=== PATIENT | female | born 1950 | race Caucasian/White ===

== ENCOUNTER → 2017-10-07 11:02 | Outpatient (CLI) | payer MEDICARE, OTHER, SELFPAY ==
--- NOTE | 2017-10-07 | DI.MRI.S_ITS ---
PROCEDURE: MR LUMBAR SPINE WO CON INDICATIONS: SPINAL STENOSIS OF LUMBAR REGION TECHNIQUE: Noncontrast sagittal T1 spin echo and T2 fast echo, sagittal STIR, axial T1 and T2 fast spin echo through the lumbar spine. In cases with scoliosis, additional coronal T2 fast spin echo may be performed. COMPARISON: [facility], MR, L-SPINE WITHOUT CONTRAST, 05/11/2015, 10:01. [facility], MR, L-SPINE WITHOUT CONTRAST, 09/24/2011, 13:02. [facility], MR, L-SPINE W&WO CONTRAST, 02/23/2016, 10:18. FINDINGS: Image quality: Excellent. Alignment and Curvature: There is a one L4-L5 and L5-S1 anterolisthesis secondary to facet hypertrophy. Bone Marrow: Mild reactive endplate changes noted adjacent the L5-S1 disc. Benign, intraosseous hemangioma noted in the L3 vertebral body. Postsurgical changes compatible prior right L5-S1 laminotomy noted. No acute vertebral body compression fractures. Spinal Cord: Conus medullaris terminates at the L1 level. Visualized cord demonstrates normal signal and size. Paraspinous Soft Tissues: No paravertebral masses. L1-L2: Slight loss of disc signal. Minimal, diffuse disc bulge. No central stenosis. No neural foraminal narrowing. L2-L3: Slight loss of disc signal. Mild, diffuse disc bulge. Mild bilateral facet hypertrophy. No central stenosis. No neural foraminal narrowing. L3-L4: Loss of disc signal. Mild to moderate diffuse disc bulge. Mild to moderate facet hypertrophy. Mild ligamentum flavum hypertrophy. Mild narrowing of the central canal secondary to disc disease and posterior element hypertrophy. Mild bilateral neural foraminal narrowing secondary to disc and facet disease. L4-L5: Loss of disc signal and height. Mild, diffuse disc bulge. Severe facet hypertrophy. Moderate ligamentum flavum hypertrophy. Severe central canal narrowing secondary to disc disease and posterior element hypertrophy. Severe bilateral neural foraminal narrowing secondary to disc and facet disease with flattened deformity exiting L4 nerve roots bilaterally. Focal high intensity zone noted in the posterior annulus compatible with a fissure. L5-S1: Loss of disc signal and height. Mild, diffuse disc bulge. Small right central disc protrusion superimposed on diffuse disc bulge is not significantly changed compared to 02/23/2016. Severe bilateral facet hypertrophy. Mild to moderate narrowing of the central canal secondary to disc disease and facet hypertrophy. Moderate to severe bilateral neural foraminal narrowing secondary to disc and facet disease with slight flattened deformity exiting L5 nerve roots bilaterally. IMPRESSION: 1. Postsurgical changes. 2. Grade I L4-L5 and L5-S1 degenerative spondylolisthesis. 3. Multilevel degenerative disc disease. 4. Multilevel facet arthropathy. 5. Severe L4-L5 central canal narrowing. Mild to moderate L5-S1 central canal narrowing. Mild L3-L4 central. 6. Severe bilateral L4-L5 neural foraminal narrowing. Moderate to severe bilateral L5-S1 neural foraminal narrowing. Mild bilateral L3-L4 neural foraminal narrowing. Dictated by: Nikki Rivas MD, PhD on 10/07/2017 at 16:41 Approved by: Nikki Rivas MD, PhD on 10/07/2017 at 16:50
== END ==
PROVIDERS: Family Provider Physical Medicine & Rehabilitation; PCP Student in an Organized Health Care Education/Training Program; Visit Provider Student in an Organized Health Care Education/Training Program
DX: M48.061 Spinal stenosis, lumbar region without neurogenic claudication (principal); M43.16 Spondylolisthesis, lumbar region; M51.36 Other intervertebral disc degeneration, lumbar region; M47.896 Other spondylosis, lumbar region
CPT/HCPCS: 72148

== ENCOUNTER 2020-05-13 17:50 | Emergency (ER) | payer MEDICARE, OTHER, SELFPAY ==
[2020-05-13 17:55] VITALS: BP 185/88; PULSE 72; RESP 15; TEMP 36.8; O2SAT 99; BMI 27.4
--- NOTE | 2020-05-13 18:05 | DI.US.S_ITS ---
PROCEDURE: US PERIPH VENOUS LOW EXTREM LT INDICATIONS: RULE OUT DEEP VEIN THROMBOSIS TECHNIQUE: Real-time imaging, as well as color and pulse Doppler interrogation, were performed of the lower extremity deep veins from the inguinal ligament to the popliteal fossa. COMPARISON: None. FINDINGS: Partially occlusive thrombus is seen within the popliteal vein which is dilated. IMPRESSION: Popliteal DVT. Dictated by: Angélica Pringle M.D. on 05/13/2020 at 18:45 Approved by: Angélica Pringle M.D. on 05/13/2020 at 18:45
--- NOTE | 2020-05-13 19:10 | ED.EXTPRO ---
HPI - Extremity Problem General Chief complaint: Extremity Problem,Nontraumatic Stated complaint: Pain In Groin, Possible DVT Time Seen by Provider: 05/13/20 18:07 Source: patient Mode of arrival: Ambulatory Limitations: no limitations History of Present Illness HPI Narrative: 70-year-old female daily smoker with history of lupus, hypertension presents with her , at the request of her primary care doctor for evaluation of pain and swelling in her right groin in the absence of any injury. She recently was on a prolonged car ride (>5hours) and there is concern for a DVT. Her pain started on Tuesdayshe has had no fever chills nor numbness, tingling or weakness. She denies any history of blood clot, recent injury or cancer. She was seen and evaluated at an outside facility and was given an injection of Lovenox and sent here for confirmatory diagnosis. Her pain is deep and aching, worsening over the course of the week, improved with rest and worse with motion and palpation MD Complaint: extremity pain and extremity swelling Onset (ago): day(s) Pain Consistency: constant Location: right Quality: aching Radiation: none Relieving factors: rest Exacerbating factors: range of motion, weight bearing and palpation Associated symptoms: denies other symptoms Context: recent travel Related Data Previous Rx's Medication Instructions Recorded apixaban [Eliquis DVT-PE Treat 30D See Rx Instructions .ROUTE 05/13/20 Start] .COMPLEX #74 ea Allergies Allergy/AdvReac Type Severity Reaction Status Date / Time morphine Allergy Verified 05/13/20 17:58 Review of Systems Constitutional Constitutional: Denies chills, Denies fatigue, Denies fever(s), Denies frequent falls, Denies lethargy and Denies weakness Eyes Eyes: Denies change in vision, Denies eye discharge, Denies irritation and Denies loss of vision ENT Ears, Nose, Mouth, and Throat: Denies change in voice, Denies dizziness, Denies neck pain, Denies sore throat and Denies throat swelling Cardiovascular Cardiovascular: Denies chest pain, Denies irregular heart rhythm, Denies lightheadedness, Denies palpitations, Denies dyspnea, Denies dyspnea on exertion and Denies orthopnea Respiratory Respiratory: Denies cough, Denies dyspnea, Denies dyspnea on exertion and Denies wheezing Gastrointestinal Gastrointestinal: Denies abdominal pain, Denies change in bowel habits, Denies diarrhea, Denies nausea and Denies vomiting Musculoskeletal Musculoskeletal: Reports abnormal gait, Denies neck pain and Denies numbness Integumentary/Breasts Skin/Breast: Denies pruritus, Denies erythema, Denies rash and Denies wounds Neurologic Neurologic: Reports abnormal gait, Denies behavioral changes, Denies confusion, Denies dizziness, Denies frequent falls, Denies loss of vision, Denies numbness and Denies weakness Psychiatric Psychiatric: Denies anxiety, Denies behavioral changes, Denies confusion, Denies depression, Denies homicidal ideation and Denies suicidal ideation Endocrine Endocrine: Denies fatigue, Denies flushing and Denies palpitations Hematologic/Lymphatic Hematologic/Lymphatic: Denies easy bruising Allergic/Immunologic Allergic/Immunologic: Denies urticaria, Denies throat swelling and Denies wheezing Patient History Social History Smoking Status: Current every day smoker Smoking Status: Current every day smoker alcohol intake frequency: 0-2 drinks per day Substance Use Type: does not use Exam Narrative Exam Narrative: GENERAL: [70] year old patient appears stated age. Well-nourished, well-developed patient, in mild distress. Ambulates to exam room HEAD: Atraumatic. Normocephalic. EYES: Pupils equal round and reactive. Extraocular motions intact. No scleral icterus. No injection or drainage. ENT: Nose without bleeding, purulent drainage. Throat without erythema, tonsillar hypertrophy or exudate. Airway patent. NECK: Trachea midline. Non tender CARDIOVASCULAR: Regular rate and rhythm without murmurs, gallops, or rubs. RESPIRATORY: Clear to auscultation. Breath sounds equal bilaterally. No wheezes, rales, or rhonchi. GASTROINTESTINAL: Abdomen soft, non-tender, nondistended. EXTREMITIES: Pain in left groin and thigh, no obvious erythema, swelling No edema or joint tenderness. BACK: Nontender without deformity or crepitance. No flank tenderness. NEURO: AOx3. SKIN: No rash or erythema of visible areas Initial Vital Signs Initial Vital Signs: Vital Signs Temperature 98.3 F 05/13/20 17:55 Pulse Rate 72 05/13/20 17:55 Respiratory Rate 15 05/13/20 17:55 Blood Pressure 185/88 H 05/13/20 17:55 Pulse Oximetry 99 05/13/20 17:55 Course Orders Ordered: Discontinued Medications Hydrocodone Bitart/Acetaminophen (Hydrocodone/Acet 5/325 Prepack) 1 bottle MISC SEEINSTR ONE Stop: 05/13/20 19:31 Last Admin: 05/13/20 19:36 Dose: 1 bottle Documented by: AVERY Vital Signs Vital signs: Vital Signs - 8 hr 05/13/20 17:55 Temperature 98.3 F Pulse Rate 72 Respiratory Rate 15 Blood Pressure 185/88 H Pulse Oximetry 99 MDM - Extremity (Nontraumatic) Imaging Data US - DVT: Radiologist's Impression: [address] [id number] ReportSigned Patient: Tyra Contreras MMR#: [id number]: 8Acct:[id number]/Sex: 70 / FDate of Service: 05/13/20Loc: EDAccession Number: [id number] Procedure: US periph venous low extrem lt Ordering Provider: Leann Ceballos D.O. PROCEDURE: US PERIPH VENOUS LOW EXTREM LT INDICATIONS: RULE OUT DEEP VEIN THROMBOSIS TECHNIQUE: Real-time imaging, as well as color and pulse Doppler interrogation, were performed of the lower extremity deep veins from the inguinal ligament to the popliteal fossa. COMPARISON: None. FINDINGS: Partially occlusive thrombus is seen within the popliteal vein which is dilated. IMPRESSION: Popliteal DVT. Dictated by: Angélica Pringle M.D. on 05/13/2020 at 18:45 Approved by: Angélica Pringle M.D. on 05/13/2020 at 18:45 Discharge Plan Departure Patient Disposition: Home Clinical Impression: Deep vein thrombosis of lower extremity Qualifiers: Affected thrombotic vein of extremity: popliteal Chronicity: acute Laterality: left Qualified Code(s): I82.432 - Acute embolism and thrombosis of left popliteal vein Instructions: DI for Deep Vein Thrombosis Activity Restrictions/Additional Instructions: *You have been diagnosed with [left lower extremity DVT (popliteal)] *What to do: *Take medications as directed: Your prescription for the blood thinner was sent to [email or web address] at your request *Follow up with your primary care provider in 2-3 days, call for an appointment. Let them know you were seen in the Emergency Department and that we ask that you be seen in follow up *Return to ER if you should have any new, worsening or concerning symptoms Prescriptions: New Eliquis DVT-PE Treat 30D Start 5 mg (74 tabs) tablets,dose pack See Rx Instructions .ROUTE .COMPLEX Qty: 74 RF: 0 Referrals: Domingo Schulz MD [Primary Care Provider] -
[2020-05-13] MEDS: HYDROCODONE/ACET 5/325 PREPACK 1 BOTTLE MISC (19:36)
== END 2020-05-13 19:41 | disposition home or self-care (01) ==
PROVIDERS: Emergency Provider Emergency Medicine; Family Provider Physical Medicine & Rehabilitation; PCP Student in an Organized Health Care Education/Training Program
DX: I82.432 Acute embolism and thrombosis of left popliteal vein (principal); Z79.01 Long term (current) use of anticoagulants; I10 Essential (primary) hypertension; M32.9 Systemic lupus erythematosus, unspecified
CPT/HCPCS: 93971; 99281; 99283

== ENCOUNTER 2021-12-02 06:19 | Emergency (ER) | payer MEDICARE, SELFPAY ==
[2021-12-02 06:30] VITALS: BP 154/86; PULSE 70; RESP 17; TEMP 36.7; O2SAT 93; BMI 29.1
--- NOTE | 2021-12-02 06:52 | PC.NURSE ---
Pt normally wears glasses, does not have them
== END 2021-12-02 07:36 | disposition left against medical advice (07) ==
PROVIDERS: Emergency Provider Emergency Medicine; Family Provider Physical Medicine & Rehabilitation
CPT/HCPCS: 99281

== ENCOUNTER 2022-03-10 09:51 | Emergency (ER) | payer MEDICARE, OTHER, SELFPAY ==
[2022-03-10] VITALS (8 sets, daily range): BP systolic 122–200; BP diastolic 68–86; PULSE 67–79; RESP 14–25; TEMP 36.6; O2SAT 94–97; BMI 29.1
--- NOTE | 2022-03-10 10:03 | DI.RAD.S_ITS ---
PROCEDURE: XR CHEST 2V INDICATIONS: cough for 2 weeks TECHNIQUE: 2 views of the chest were acquired. COMPARISON: None. FINDINGS: Surgical changes and devices: None. Lungs and pleura: Trace left basilar atelectasis and or infiltrate. Right lung and both pleural spaces are clear. Mediastinum: Mediastinal contours are normal. Heart size is normal. Bones and chest wall: No suspicious bony abnormalities. Soft tissues appear unremarkable. IMPRESSION: Trace left basilar atelectasis and or infiltrate. Approved by: Zach Castillo M.D. on 03/10/2022 at 10:15
--- NOTE | 2022-03-10 10:11 | ED.GENADULT ---
HPI - General Adult General Chief complaint: Shortness of Breath/Dyspnea Stated complaint: COUGHING,SOB,SENT BY [facility] Time Seen by Provider: 03/10/22 09:55 Source: patient Mode of arrival: Family Vehicle History of Present Illness HPI narrative: Patient is a 71-year-old female who for the past 2 weeks has had sinus congestion that soon afterwards seemed to move to her chest. She has had shortness of breath and coughing for greater than 10 days. No fevers. Her sinus congestion has improved. She has been using Claritin. She has had symptoms like this similar in the past requiring nebulizers, inhalers, steroids and antibiotics. She is having some chest discomfort that has been constant for the past 10 days as well. No diarrhea. No lower extremity swelling. No prior underlying lung issues. No prior cardiac issues. Has had a DVT in the past. No pulmonary embolism. Has been on Eliquis but is no longer taking this. Related Data Previous Rx's Medication Instructions Recorded apixaban 5 mg (74 tabs) tablets in See Rx Instructions PO .COMPLEX 05/13/20 a dose pack (Eliquis DVT-PE Treat #74 ea 30D Start) azithromycin 250 mg tablet See Rx Instructions PO .COMPLEX #6 03/10/22 tabs Allergies Allergy/AdvReac Type Severity Reaction Status Date / Time hydromorphone [From Dilaudid] AdvReac Nausea Verified 03/10/22 10:08 morphine AdvReac Nausea Verified 03/10/22 10:08 Review of Systems Constitutional Constitutional: Reports system reviewed and no additional complaints, except as documented ENT Ears, Nose, Mouth, and Throat: Reports system reviewed and no additional complaints, except as documented Cardiovascular Cardiovascular: Reports system reviewed and no additional complaints, except as documented Respiratory Respiratory: Reports system reviewed and no additional complaints, except as documented Gastrointestinal Gastrointestinal: Reports system reviewed and no additional complaints, except as documented Integumentary/Breasts Skin/Breast: Reports system reviewed and no additional complaints, except as documented Neurologic Neurologic: Reports system reviewed and no additional complaints, except as documented Hematologic/Lymphatic On Anticoagulants: No Patient History Medical History (Updated 03/10/22 @ 12:02 by Don David DO) DVT (deep venous thrombosis) Social History Smoking Status: Current every day smoker Smoking Status: Current every day smoker alcohol intake frequency: 0-2 drinks per day Substance Use Type: does not use Exam Initial Vital Signs Initial Vital Signs: Vital Signs Temperature 97.9 F 03/10/22 10:05 Pulse Rate 79 03/10/22 10:05 Respiratory Rate 19 03/10/22 10:05 Blood Pressure 200/86 H 03/10/22 10:05 Pulse Oximetry 97 03/10/22 10:05 Oxygen Delivery Method 03/10/22 10:05 Const General: cooperative and comfortable HENMT Head: normal to inspection and normocephalic Resp Effort & Inspection: not labored, no respiratory distress and tachypneic Auscultation: rhonchi and wheezes Cardio Rate: regular rate Rhythm: regular rhythm GI Inspection: normal to inspection Skin General: no rashes or lesions noted Neuro General: patient alert, patient awake and moves all extremities Extrem General: normal to inspection and capillary refill normal Psych Appearance: grossly normal and well kempt Course Orders Ordered: ED Orders 03/10/22 10:03 CXR [XR chest 2V] Stat 03/10/22 10:10 RT Consult Eval and Treat Now 03/10/22 10:15 Covid-19 + FLU A/B + RSV - PCR Stat 03/10/22 10:26 Basic Metabolic Panel Stat Complete Blood Count AUTO DIFF Stat NT-proBNP (BNP-Adult 18+) Stat Troponin & CK Cardiac Panel Stat 03/10/22 10:29 EKG-12 Lead Stat Discontinued Medications Albuterol/Ipratropium (Albuterol/Ipratropium 3 Ml Ampul) 3 ml INH NOW ONE Stop: 03/10/22 10:10 Last Admin: 03/10/22 11:08 Dose: 3 ml Documented By: ERIC Vital Signs Vital signs: Vital Signs - 8 hr 03/10/22 10:05 03/10/22 10:30 03/10/22 10:32 Temperature 97.9 F Pulse Rate 79 67 Respiratory Rate 19 25 H Blood Pressure 200/86 H 122/68 Pulse Oximetry 97 96 Oxygen Delivery Method Room Air 03/10/22 10:32 03/10/22 11:00 03/10/22 11:09 Temperature Pulse Rate 67 73 67 Respiratory Rate 22 18 16 Blood Pressure Pulse Oximetry 97 97 97 Oxygen Delivery Method Room Air 03/10/22 11:09 03/10/22 11:09 Temperature Pulse Rate 67 Respiratory Rate 18 Blood Pressure 167/74 H Pulse Oximetry 96 Oxygen Delivery Method Room Air Medical Decision Making Lab Data Lab results reviewed: Yes I reviewed the patient's lab results. Result diagrams: 03/10/22 10:26 03/10/22 10:26 Labs: Lab Results 03/10/22 03/10/22 03/10/22 Range/Units 10:15 10:26 10:26 WBC 7.2 (4.5-11.0) X10^3/uL RBC 4.38 (4.0-5.2) X10^6/uL Hgb 13.5 (12.0-16.0) g/dL Hct 39.6 (36-46) % MCV 90.5 (80-100) fL MCH 30.9 (26-34) PG MCHC 34.1 (30-36) % RDW 13.7 (11.6-14.8) % Plt Count 208 (150-400) X10^3/uL Neut % (Auto) 59.5 (50-75) % Lymph % (Auto) 24.0 L (25-40) % [place] % (Auto) 6.6 (3-14) % Eos % (Auto) 8.7 H (2-4) % Baso % (Auto) 1.2 (0-2) % Neut # (Auto) 4300 (8317-4070) /uL Lymph # (Auto) 1700 (0079-9815) /uL [place] # (Auto) 500 (0-900) /uL Eos # (Auto) 600 H (0-450) /uL Baso # (Auto) 100 (0-100) /uL Sodium 139 (137-145) mmol/L Potassium 4.3 (3.4-5.1) mmol/L Chloride 106 (98-107) mmol/L Carbon Dioxide 25 (22-32) mmol/L BUN 17 (7-17) mg/dL Creatinine 0.62 (0.52-1.04) mg/dL Estimated GFR > 60 (>60) mL/min BUN/Creatinine Ratio 27.4 H (6-22) Glucose 88 (80-110) mg/dL Calcium 8.9 (8.4-10.2) mg/dL Total Creatine Kinase 69 (30-135) U/L CK-MB (CK-2) TNP CK-MB (CK-2) Rel Index TNP Troponin I < 0.012 (0.01-0.034) ng/mL NT-Pro-B Natriuret Pep 54 (<125) pg/mL SARS-CoV-2 (PCR) Negative (Negative) Influenza A (RT-PCR) Flu a negative (NEGATIVE) Influenza B (RT-PCR) Flu b negative (NEGATIVE) RSV (PCR) Negative (Negative) Imaging Data Chest x-ray: Radiologist's Impression: [address] [address] XRay Report Signed Patient: Tyra Contreras MR#: [id number] : 1950 Acct:[id number] Age/Sex: 71 / F Date of Service: 03/10/22 Loc: ED Accession Number: [id number] ?? Procedure: XR chest 2V Ordering Provider: Don David D.O. PROCEDURE:? XR CHEST 2V ? INDICATIONS:? cough for 2 weeks ? TECHNIQUE:? 2 views of the chest were acquired.? ? COMPARISON:? None. ? FINDINGS:? ? Surgical changes and devices:? None.? ? Lungs and pleura:? Trace left basilar atelectasis and or infiltrate.? Right lung and both pleural spaces are clear. ? Mediastinum:? Mediastinal contours are normal.? Heart size is normal.? ? Bones and chest wall:? No suspicious bony abnormalities.? Soft tissues appear unremarkable.? ? IMPRESSION:? Trace left basilar atelectasis and or infiltrate. ? ? ? Approved by: Zach Castillo M.D. on 03/10/2022 at 10:15? ECG Data Attestation: I personally reviewed and interpreted this ECG as follows: Interpretation: Sinus rhythm Ventricular rate is 65 Normal axis Normal QRS Normal QTC No ST T wave changes MDM Narrative Medical decision making narrative: No respiratory distress. She does have coarse breath sounds, productive cough and chest x-ray possible for pneumonia. Will treat with antibiotics. She received no improvement with the nebulizer treatment. Will hold on steroids or albuterol for now. She was given return precautions. She expressed understanding and agreement. Discharge Plan Departure Patient Disposition: Home Clinical Impression: Pneumonia Instructions: DI for Pneumonia -- Adult Activity Restrictions/Additional Instructions: A prescription for antibiotics was sent to [email or web address] per your request. Please start taking them as directed. Return to the emergency department for any new or worsening symptoms. Prescriptions: New azithromycin 250 mg tablet See Rx Instructions .ROUTE .COMPLEX Qty: 6 0RF Rx Instructions: For 250 mg dose pack: take 500 mg today (day 1), then 250 mg for 4 days (days 2-5) No Action Eliquis DVT-PE Treat 30D Start 5 mg (74 tabs) tablets,dose pack See Rx Instructions .ROUTE .COMPLEX Qty: 74 0RF Rx Instructions: orally per package directions Referrals: Miscellaneous,Doctor, MD [Primary Care Provider] -
[2022-03-10 10:46] LABS: Add Manual Diff / Slide Review NO; Basophils Absolute Auto 100 /uL (0-100); Basophils Percent Auto 1.2 % (0-2); Eosinophils Absolute Auto 600 /uL (0-450); Eosinophils Percent Auto 8.7 % (2-4); Hematocrit 39.6 % (36-46); Hemoglobin 13.5 g/dL (12.0-16.0); Lymphocytes Absolute Auto 1700 /uL (1100-4500); Mean Corpuscular HGB Conc 34.1 % (30-36); Mean Corpuscular Hemoglobin 30.9 PG (26-34); Mean Corpuscular Volume 90.5 fL (80-100); Monocytes Absolute Auto 500 /uL (0-900); Monocytes Percent Auto 6.6 % (3-14); Neutrophils Absolute Auto 4300 /uL (1500-7000); Neutrophils Percent Auto 59.5 % (50-75); Platelet Count 208 X10^3/uL (150-400); Red Blood Cell Count 4.38 X10^6/uL (4.0-5.2); Red Cell Distribution Width 13.7 % (11.6-14.8); White Blood Cell Count 7.2 X10^3/uL (4.5-11.0)
[2022-03-10 10:53] LABS: BUN Creatinine Ratio 27.4 (6-22); Blood Urea Nitrogen 17 mg/dL (7-17); Calcium 8.9 mg/dL (8.4-10.2); Carbon Dioxide 25 mmol/L (22-32); Chloride 106 mmol/L (98-107); Creatine Kinase 69 U/L (30-135); Estimated Glomerular Filt Rate > 60 mL/min (>60); Glucose 88 mg/dL (80-110); Potassium 4.3 mmol/L (3.4-5.1); Sodium 139 mmol/L (137-145)
[2022-03-10 10:58] LABS: Influenza A - CEPHEID Flu A NEGATIVE (NEGATIVE); Influenza B - CEPHEID Flu B NEGATIVE (NEGATIVE); Respiratory Syncytial Virus Negative (Negative)
[2022-03-10 11:00] LABS: HEMOLYSIS 59 (0-50)
[2022-03-10 11:03] LABS: COVID-19 CEPHEID 4-PLEX PCR Negative (Negative)
[2022-03-10 11:05] LABS: NT-proBNP (BNP-Adult 18+) 54 pg/mL (<125); Troponin I < 0.012 ng/mL (0.01-0.034)
[2022-03-10] MEDS: ALBUTEROL/IPRATROPIUM 3 ML AMPUL INH (11:08)
== END 2022-03-10 12:20 | disposition home or self-care (01) ==
PROVIDERS: Emergency Provider Emergency Medicine; Family Provider Physical Medicine & Rehabilitation
DX: J18.9 Pneumonia, unspecified organism (principal); Z20.822 Contact with and (suspected) exposure to COVID-19; R07.9 Chest pain, unspecified; R03.0 Elevated blood-pressure reading, without diagnosis of hypertension
CPT/HCPCS: 0241U; 36415; 71046; 80048; 82550; 83880; 84484; 85025; 93005; 93010; 94640; 99284

== ENCOUNTER 2022-03-14 13:30 | Emergency (ER) | payer MEDICARE, OTHER, SELFPAY ==
[2022-03-14] VITALS (9 sets, daily range): BP systolic 134–189; BP diastolic 60–115; PULSE 85–100; RESP 14–23; TEMP 35.9; O2SAT 94–96; BMI 28.3
[2022-03-14 14:34] LABS: Prothrombin Time 11.4 SECONDS (10.1-12.7)
[2022-03-14 14:36] LABS: D Dimer 551 ng/ml (<500)
[2022-03-14 14:39] LABS: Lactate (Lactic Acid) 1.5 mmol/L (0.7-2.1)
--- NOTE | 2022-03-14 14:43 | ED_ITS ---
HPI - SOB/Dyspnea General Chief Complaint: Shortness of Breath/Dyspnea Stated Complaint: Pneumonia Time Seen by Provider: 03/14/22 13:40 Source: patient Mode of arrival: Ambulatory Limitations: no limitations History of Present Illness HPI Narrative: This is a 71-year-old female with history of lupus, hypertension on premarin who states she smoked in her 20s with complaint of pneumonia that is not improving. Patient states she started having sinus congestion did her chest and she is had a dry cough which has been only occasionally having small amount of productive sputum that is yellowish once or twice a day, afebrile with no chills or rigors. She denies chest pain but feels tight and wheezy. Patient denies any nausea or vomiting. Patient states she did have diarrhea beginning her symptoms but not currently. She states she is had chest discomfort and shortness of breath. She is not had any hemoptysis. Patient was discharged home on azithromycin. 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 She states she would often get steroids and an inhaler and this would usually helpful. She did not take anything similar to this this most recent ER visit. She does have a history of DVT but no history of PE she is not currently anticoagulated. Patient states she has prior knee surgery 4 years ago denies any cardiac or lung surgeries or any other major surgeries. States narcotics make her nauseated and vomit. States she smoked in her 20s for short period of time but denies active tobacco use. Occasional alcohol, no IV drug use or illicit. She was living out in the [address] but now lives locally. She does not have a primary care currently, she is been trying to get referral to you does pulmonology because of her history of recurrent bronchitis but is finding herself stuck because she does not have primary care. Related Data Previous Rx's Medication Instructions Recorded apixaban 5 mg (74 tabs) tablets in See Rx Instructions PO .COMPLEX 05/13/20 a dose pack (Eliquis DVT-PE Treat #74 ea 30D Start) azithromycin 250 mg tablet See Rx Instructions PO .COMPLEX #6 03/10/22 tabs budesonide-formoterol HFA 160 1 puff inhalation BID #10.2 grams 03/14/22 mcg-4.5 mcg/actuation aerosol inhaler (Symbicort) prednisone 20 mg tablet 40 mg PO DAILY #10 tabs 03/14/22 Allergies Allergy/AdvReac Type Severity Reaction Status Date / Time hydromorphone [From Dilaudid] AdvReac Nausea Verified 03/10/22 10:08 morphine AdvReac Nausea Verified 03/10/22 10:08 Review of Systems Review of Systems ROS Unobtainable: All systems reviewed & are unremarkable except as noted in HPI and below Patient History Medical History DVT (deep venous thrombosis) Social History Smoking Status: Current every day smoker Smoking Status: Current every day smoker alcohol intake frequency: 0-2 drinks per day Substance Use Type: does not use Exam Narrative Exam Narrative: GENERAL: Alert and oriented x three, well-appearing female in mild distress. HEENT: Head normocephalic, atraumatic, EOMI, pupils reactive, face symmetric, moist mucous membranes NECK: Supple, full range of motion CARDIOVASCULAR: Regular rate and rhythm without murmurs, rubs or gallops. No JVD. No swelling bilateral lower extremities. RESPIRATORY: Breath sounds equal bilaterally, scant bilateral wheezes, no rales or rhonchi. No tachypnea accessory muscle use. Speaks in full sentences. Patient does have a dry hacking cough that is intermittent. ABDOMEN: Soft, nontender. Normoactive bowel sounds all 4 quadrants. No guarding or rebound, rigidity, no mass : No CVA tenderness EXTREMITIES: Normal range of motion, no clubbing or edema. Neurovascularly intact NEUROLOGICAL: Cranial nerves II through XII grossly intact. Moving all extremities SKIN: Warm, dry, no petechiae, no rashes or lesions. Initial Vital Signs Initial Vital Signs: Vital Signs Temperature 96.6 F L 03/14/22 13:35 Pulse Rate 100 H 03/14/22 13:35 Respiratory Rate 22 03/14/22 13:35 Blood Pressure 189/86 H 03/14/22 13:35 Pulse Oximetry 96 03/14/22 13:35 Oxygen Delivery Method 03/14/22 13:35 Course Orders Ordered: Discontinued Medications Albuterol/Ipratropium (Albuterol/Ipratropium 3 Ml Ampul) 3 ml INH NOW ONE Stop: 03/14/22 14:39 Last Admin: 03/14/22 14:47 Dose: 3 ml Documented By: GUILLERMO Benzonatate (Benzonatate 100 Mg Capsule) 100 mg PO NOW ONE Stop: 03/14/22 15:04 Last Admin: 03/14/22 15:48 Dose: 100 mg Documented By: HANY Sodium Chloride (Normal Saline 0.9%) 1,000 mls @ 1,000 mls/hr IV BOLUS ONE Stop: 03/14/22 14:41 Last Infusion: 03/14/22 16:09 Dose: 0 mls/hr Documented By: Admin: 03/14/22 14:48 Dose: 1,000 mls/hr Documented By: HANY Methylprednisolone (Methylprednisolone 125 Mg/2 Ml Vial) 125 mg IV NOW ONE Stop: 03/14/22 15:04 Last Admin: 03/14/22 15:49 Dose: 125 mg Documented By: HANY Vital Signs Vital signs: Vital Signs - 8 hr 03/14/22 13:35 03/14/22 13:54 03/14/22 13:57 Temperature 96.6 F L Pulse Rate 100 H 98 H Respiratory Rate 22 22 Blood Pressure 189/86 H Pulse Oximetry 96 95 Oxygen Delivery Method Room Air Room Air 03/14/22 13:57 03/14/22 14:00 03/14/22 14:00 Temperature Pulse Rate 92 H Respiratory Rate 23 Blood Pressure 173/115 H 189/98 H Pulse Oximetry 95 Oxygen Delivery Method 03/14/22 14:30 03/14/22 14:30 03/14/22 15:00 Temperature Pulse Rate 85 96 H Respiratory Rate 19 Blood Pressure 158/88 H Pulse Oximetry 95 95 Oxygen Delivery Method 03/14/22 15:01 03/14/22 15:01 03/14/22 15:30 Temperature Pulse Rate 94 H Respiratory Rate Blood Pressure 149/67 H 134/60 Pulse Oximetry 94 Oxygen Delivery Method 03/14/22 15:30 Temperature Pulse Rate 90 Respiratory Rate 17 Blood Pressure Pulse Oximetry 94 Oxygen Delivery Method MDM - SOB/Dyspnea Lab Data Result diagrams: 03/14/22 14:10 03/14/22 14:10 Labs: Lab Results 03/14/22 03/14/22 03/14/22 Range/Units 14:10 14:10 14:10 WBC 6.9 (4.5-11.0) X10^3/uL RBC 4.24 (4.0-5.2) X10^6/uL Hgb 13.2 (12.0-16.0) g/dL Hct 38.3 (36-46) % MCV 90.2 (80-100) fL MCH 31.0 (26-34) PG MCHC 34.4 (30-36) % RDW 13.8 (11.6-14.8) % Plt Count 223 (150-400) X10^3/uL Neut % (Auto) 58.1 (50-75) % Lymph % (Auto) 21.3 L (25-40) % [place] % (Auto) 7.8 (3-14) % Eos % (Auto) 11.4 H (2-4) % Baso % (Auto) 1.4 (0-2) % Neut # (Auto) 4000 (1818-0700) /uL Lymph # (Auto) 1500 (2916-7938) /uL [place] # (Auto) 500 (0-900) /uL Eos # (Auto) 800 H (0-450) /uL Baso # (Auto) 100 (0-100) /uL PT 11.4 (10.1-12.7) SECONDS INR 1.0 (0.9-1.3) APTT (26-36) SECONDS D-Dimer 551 H (<500) ng/ml Sodium 140 (137-145) mmol/L Potassium 4.2 (3.4-5.1) mmol/L Chloride 105 (98-107) mmol/L Carbon Dioxide 27 (22-32) mmol/L BUN 13 (7-17) mg/dL Creatinine 0.72 (0.52-1.04) mg/dL Estimated GFR > 60 (>60) mL/min BUN/Creatinine Ratio 18.1 (6-22) Glucose 85 (80-110) mg/dL Lactate (0.7-2.1) mmol/L Calcium 8.9 (8.4-10.2) mg/dL Total Bilirubin 0.5 (0.2-1.3) mg/dL AST 25 (14-36) IU/L ALT 22 (<35) IU/L Alkaline Phosphatase 79 (38-126) U/L Total Creatine Kinase 66 (30-135) U/L CK-MB (CK-2) TNP CK-MB (CK-2) Rel Index TNP Troponin I < 0.012 (0.01-0.034) ng/mL NT-Pro-B Natriuret Pep 27 (<125) pg/mL Total Protein 6.9 (6.3-8.2) g/dL Albumin 4.0 (3.5-5.0) g/dL Globulin 2.9 (1.7-4.1) g/dL Albumin/Globulin Ratio 1.4 (1.0-2.8) Procalcitonin 0.03 (<0.5) ng/mL SARS-CoV-2 (PCR) (Negative) Influenza A (RT-PCR) (NEGATIVE) Influenza B (RT-PCR) (NEGATIVE) RSV (PCR) (Negative) 03/14/22 03/14/22 03/14/22 Range/Units 14:10 14:10 14:20 WBC (4.5-11.0) X10^3/uL RBC (4.0-5.2) X10^6/uL Hgb (12.0-16.0) g/dL Hct (36-46) % MCV (80-100) fL MCH (26-34) PG MCHC (30-36) % RDW (11.6-14.8) % Plt Count (150-400) X10^3/uL Neut % (Auto) (50-75) % Lymph % (Auto) (25-40) % [place] % (Auto) (3-14) % Eos % (Auto) (2-4) % Baso % (Auto) (0-2) % Neut # (Auto) (5441-1119) /uL Lymph # (Auto) (9948-7133) /uL [place] # (Auto) (0-900) /uL Eos # (Auto) (0-450) /uL Baso # (Auto) (0-100) /uL PT (10.1-12.7) SECONDS INR (0.9-1.3) APTT 27 (26-36) SECONDS D-Dimer (<500) ng/ml Sodium (137-145) mmol/L Potassium (3.4-5.1) mmol/L Chloride (98-107) mmol/L Carbon Dioxide (22-32) mmol/L BUN (7-17) mg/dL Creatinine (0.52-1.04) mg/dL Estimated GFR (>60) mL/min BUN/Creatinine Ratio (6-22) Glucose (80-110) mg/dL Lactate 1.5 (0.7-2.1) mmol/L Calcium (8.4-10.2) mg/dL Total Bilirubin (0.2-1.3) mg/dL AST (14-36) IU/L ALT (<35) IU/L Alkaline Phosphatase (38-126) U/L Total Creatine Kinase (30-135) U/L CK-MB (CK-2) CK-MB (CK-2) Rel Index Troponin I (0.01-0.034) ng/mL NT-Pro-B Natriuret Pep (<125) pg/mL Total Protein (6.3-8.2) g/dL Albumin (3.5-5.0) g/dL Globulin (1.7-4.1) g/dL Albumin/Globulin Ratio (1.0-2.8) Procalcitonin (<0.5) ng/mL SARS-CoV-2 (PCR) Negative (Negative) Influenza A (RT-PCR) Flu a negative (NEGATIVE) Influenza B (RT-PCR) Flu b negative (NEGATIVE) RSV (PCR) Negative (Negative) ECG Data Attestation: I personally reviewed and interpreted this ECG as follows: Prior ECG tracings: available for review Interpretation: Sinus rhythm rate 89 MO 168 QRS is 70 QTC [address] No acute [address] changes appreciated. Patient has prior from 03/10/[address] changes appreciated. [facility] Narrative Medical decision making narrative: This is a 71-year-old female who comes with complaint of persistent pneumonia without any improvement after being on azithromycin. Patient notes she is had chronic bronchitis in the past and responded well to steroids and inhaler. She had DuoNeb here minimal improvement. Labs including D-dimer as patient does have a history of DVT. Chest x-ray was repeated. D-dimer is negative when age adjusted. Patient had DuoNeb with minimal improvement, Solu-Medrol IV did seem helpful along with Tessalon Perle. Discussed with patient suspect reactive airway component and d/c with prednisone based on past history with improvement on steroids. Patient defers antitussive and discussed return precautions. Discharge Plan Departure Patient Disposition: Home Clinical Impression: Bronchitis Instructions: Acute Bronchitis Activity Restrictions/Additional Instructions: Please follow-up for recheck. You can try Dr. Freeman for his office they may be taking new patients. Referral included below. Referral to the respiratory clinic is included but may require referral from a primary care physician and not the ER. Please take steroids once daily until gone. Prescription for Symbicort to be used twice daily regardless of symptoms included. You can use albuterol 2-4 puffs every 6 hours as needed. Take antibiotics until completely gone. Prescription sent to [facility] in [place]. Please return for worsening symptoms increasing chest pain, shortness of breath, persistent vomiting, new swelling in your extremities, passing out or other new or concerning changes. Prescriptions: New prednisone 20 mg tablet 40 mg PO DAILY Qty: 10 0RF budesonide-formoterol [Symbicort] 160-4.5 mcg/actuation HFA aerosol inhaler 1 puff inhalation BID Qty: 10.2 0RF No Action azithromycin 250 mg tablet See Rx Instructions .ROUTE .COMPLEX Qty: 6 0RF Rx Instructions: For 250 mg dose pack: take 500 mg today (day 1), then 250 mg for 4 days (days 2-5) Eliquis DVT-PE Treat 30D Start 5 mg (74 tabs) tablets,dose pack See Rx Instructions .ROUTE .COMPLEX Qty: 74 0RF Rx Instructions: orally per package directions Referrals: Dimas Nelson MD [Non-Staff] - Miscellaneous,MD Grey [Primary Care Provider] - Visit Report Forms: Patient Portal/API
--- NOTE | 2022-03-14 14:46 | DI.RAD.S_ITS ---
PROCEDURE: XR CHEST 1V INDICATIONS: pneumonia seen recently TECHNIQUE: One view of the chest was acquired. COMPARISON: [facility], CR, XR CHEST 2V, 03/10/2022, 10:23. FINDINGS: Surgical changes and devices: None. Lungs and pleura: Left basilar infiltrate compatible with pneumonia or atelectasis. No pleural effusions or pneumothorax. Mediastinum: Mediastinal contours appear normal. Heart size is normal. Bones and chest wall: No suspicious bony lesions. Overlying soft tissues appear unremarkable. IMPRESSION: Left basilar pneumonia or atelectasis Dictated by: Shanice Godinez M.D. on 03/14/2022 at 15:46 Approved by: Shanice Godinez M.D. on 03/14/2022 at 15:47
[2022-03-14] MEDS: ALBUTEROL/IPRATROPIUM 3 ML AMPUL INH (14:47)
[2022-03-14 14:48] LABS: PTT Partial Thromboplastin Tim 27 SECONDS (26-36)
[2022-03-14] MEDS: SODIUM CHLORIDE 0.9% 1,000 ML 1000 ML IV (14:48)
[2022-03-14 15:15] LABS: Add Manual Diff / Slide Review NO; Basophils Absolute Auto 100 /uL (0-100); Basophils Percent Auto 1.4 % (0-2); Eosinophils Absolute Auto 800 /uL (0-450); Eosinophils Percent Auto 11.4 % (2-4); Hematocrit 38.3 % (36-46); Hemoglobin 13.2 g/dL (12.0-16.0); Lymphocytes Absolute Auto 1500 /uL (1100-4500); Lymphocytes Percent Auto 21.3 % (25-40); Mean Corpuscular HGB Conc 34.4 % (30-36); Mean Corpuscular Volume 90.2 fL (80-100); Monocytes Absolute Auto 500 /uL (0-900); Monocytes Percent Auto 7.8 % (3-14); Neutrophils Absolute Auto 4000 /uL (1500-7000); Neutrophils Percent Auto 58.1 % (50-75); Platelet Count 223 X10^3/uL (150-400); Red Blood Cell Count 4.24 X10^6/uL (4.0-5.2); Red Cell Distribution Width 13.8 % (11.6-14.8); White Blood Cell Count 6.9 X10^3/uL (4.5-11.0)
[2022-03-14] MEDS: BENZONATATE 100 MG CAPSULE PO (15:48)
[2022-03-14] MEDS: methylPREDNISolone 125 MG/2 ML VIAL IV (15:49)
[2022-03-14 15:53] LABS: Influenza A - CEPHEID Flu A NEGATIVE (NEGATIVE); Influenza B - CEPHEID Flu B NEGATIVE (NEGATIVE); Respiratory Syncytial Virus Negative (Negative)
[2022-03-14 15:58] LABS: COVID-19 CEPHEID 4-PLEX PCR Negative (Negative)
[2022-03-14 16:00] LABS: Alanine Aminotransferase 22 IU/L (<35); Albumin Globulin Ratio 1.4 (1.0-2.8); Alkaline Phosphatase 79 U/L (38-126); Aspartate Aminotransferase 25 IU/L (14-36); BUN Creatinine Ratio 18.1 (6-22); Bilirubin Total 0.5 mg/dL (0.2-1.3); Blood Urea Nitrogen 13 mg/dL (7-17); Calcium 8.9 mg/dL (8.4-10.2); Carbon Dioxide 27 mmol/L (22-32); Chloride 105 mmol/L (98-107); Creatine Kinase 66 U/L (30-135); Estimated Glomerular Filt Rate > 60 mL/min (>60); Globulin 2.9 g/dL (1.7-4.1); Glucose 85 mg/dL (80-110); HEMOLYSIS < 15 (0-50); Potassium 4.2 mmol/L (3.4-5.1); Sodium 140 mmol/L (137-145); Total Protein 6.9 g/dL (6.3-8.2)
[2022-03-14 16:12] LABS: NT-proBNP (BNP-Adult 18+) 27 pg/mL (<125); Troponin I < 0.012 ng/mL (0.01-0.034)
[2022-03-14 16:16] LABS: Procalcitonin 0.03 ng/mL (<0.5)
== END 2022-03-14 17:04 | disposition home or self-care (01) ==
PROVIDERS: Emergency Provider Emergency Medicine; Family Provider Physical Medicine & Rehabilitation
DX: J20.9 Acute bronchitis, unspecified (principal); Z20.822 Contact with and (suspected) exposure to COVID-19; I10 Essential (primary) hypertension; R07.9 Chest pain, unspecified
CPT/HCPCS: 0241U; 36415; 71045; 80053; 82550; 83605; 83880; 84145; 84484; 85025; 85379; 85610; 85730; 87040; 93005; 93010; 96361; 96374; 99284; 99285; J2930

== ENCOUNTER → 2023-01-16 09:51 | Outpatient (CLI) | payer MEDICARE, BC, SELFPAY ==
[2023-01-16 10:43] LABS: Alanine Aminotransferase 32 IU/L (<35); Albumin 4.3 g/dL (3.5-5.0); Albumin Globulin Ratio 1.6 (1.0-2.8); Alkaline Phosphatase 65 U/L (38-126); Aspartate Aminotransferase 32 IU/L (14-36); BUN Creatinine Ratio 27.8 (6-22); Bilirubin Total 0.7 mg/dL (0.2-1.3); Blood Urea Nitrogen 20 mg/dL (7-17); Calcium 9.8 mg/dL (8.4-10.2); Carbon Dioxide 30 mmol/L (22-32); Chloride 102 mmol/L (98-107); Estimated Glomerular Filt Rate > 60 mL/min (>60); Globulin 2.7 g/dL (1.7-4.1); Glucose 97 mg/dL (80-110); HEMOLYSIS < 15 (0-50); Magnesium 2.3 mg/dL (1.6-2.3); Potassium 4.4 mmol/L (3.4-5.1); Sodium 140 mmol/L (137-145)
[2023-01-16 11:22] LABS: TSH w/ Reflex to FT4 1.54 uIU/mL (0.47-4.68)
== END ==
PROVIDERS: Family Provider Family Medicine; PCP Family Medicine; Referring Provider Pediatrics; Visit Provider Pediatrics
DX: I10 Essential (primary) hypertension (principal); G47.00 Insomnia, unspecified; R00.2 Palpitations; R51.9 Headache, unspecified; G25.81 Restless legs syndrome; R53.83 Other fatigue
CPT/HCPCS: 36415; 80053; 83735; 84443

== ENCOUNTER 2023-04-01 07:07 | Emergency (ER) | payer MEDICARE, BC, SELFPAY ==
[2023-04-01 07:21] VITALS: BP 155/79; PULSE 87; RESP 18; TEMP 36.9; O2SAT 98; BMI 29.1
--- NOTE | 2023-04-01 07:21 | DI.US.S_ITS ---
PROCEDURE: US [facility] VENOUS LOW EXTREM LT INDICATIONS: SWELLING S/P KNEE REPLACEMENT TECHNIQUE: Real-time imaging, as well as color and pulse Doppler interrogation, were performed of the lower extremity deep veins from the inguinal ligament to the popliteal fossa, with documentation of the visualized calf veins. COMPARISON: [facility], [facility] VENOUS LOW EXTREM LT, 05/13/2020, 18:26. FINDINGS: The common femoral, femoral, popliteal, and the visualized calf veins are normally compressible, and free of intraluminal thrombus. Color and pulse Doppler demonstrate normal phasic intraluminal flow. There is normal augmentation response to distal compression maneuver. There is soft tissue edema. IMPRESSION: No findings of lower extremity deep venous thrombosis. Dictated by: Shanice Godinez M.D. on 04/01/2023 at 8:14 Approved by: Shanice Godinez M.D. on 04/01/2023 at 8:16
--- NOTE | 2023-04-01 07:24 | ED.EXTPRO ---
HPI - Extremity Problem General Chief complaint: Extremity Problem,Nontraumatic Stated complaint: possible blood clot left side knee Time Seen by Provider: 04/01/23 07:14 History of Present Illness HPI Narrative: 72-year-old female presents for left lower extremity pain and swelling. She underwent knee replacement surgery 6 weeks ago and has been healing well until approximately 1-1.5 weeks ago she noticed gradually worsening pain and swelling. Her surgeon most concern for DVT and sent her in for evaluation. Patient reports history of DVT in her left lower extremity after prolonged immobilization approximately 5-6 years ago. She is not currently on any anticoagulation. Is able to ambulate without difficulty. Denies numbness, weakness, tingling. Related Data Previous Rx's Medication Instructions Recorded bisoprolol 2.5 1 tab PO DAILY high blood pressure 11/12/22 mg-hydrochlorothiazide 6.25 mg #90 tabs tablet budesonide-formoterol HFA 160 1 puff inhalation BID #10.2 grams 11/12/22 mcg-4.5 mcg/actuation aerosol inhaler (Symbicort) pramipexole 0.5 mg tablet (Mirapex) 0.5 mg PO DAILY #90 tabs 11/12/22 trazodone 50 mg tablet 25 - 50 mg (0.5 - 1 x 50 mg) PO 11/12/22 BEDTIME PRN insomnia #90 tabs Allergies Allergy/AdvReac Type Severity Reaction Status Date / Time hydromorphone [From Dilaudid] AdvReac Nausea Verified 01/16/23 09:10 morphine AdvReac Nausea Verified 01/16/23 09:10 Review of Systems Review of Systems Narrative: Negative except as noted above Patient History Medical History (Updated 04/01/23 @ 08:40 by Leann Staples MD) Fatigue Frequent headaches Palpitations Insomnia Chronic cough Chronic back pain (~1995) Carpal tunnel syndrome (~1993) Mumps Measles Chicken pox Hearing loss (~1983) Hot flash, menopausal Restless legs syndrome (RLS) Benign essential HTN DVT (deep venous thrombosis) (~2019) Surgical History (Updated 04/15/22 @ 22:02 by Melissa Marie) Anesthesia History of discectomy (~1999) History of carpal tunnel release (~1996) History of knee replacement (~2017) Status post hysterectomy (~1993) Family History (Updated 04/15/22 @ 22:03 by Melissa Marie) Mother Stroke Social History Smoking Status: Current every day smoker Smoking Status: Current every day smoker alcohol intake frequency: 0-2 drinks per day Substance Use Type: does not use Exam Narrative Exam Narrative: Const: Awake, alert, no acute distress, nontoxic appearing Eyes: PERRL, EOMI, conjunctiva normal ENT: Atraumatic, dentition normal, mucous membranes moist Cardiac: regular rate, regular rhythm RESP: unlabored, clear bilaterally, no wheezing GI: Atraumatic, soft, nontender, nondistended, no rebound, no guarding MSK: Left knee larger in size than right knee, nonpitting edema present, full range of motion Skin: Warm, Dry, intact, well-healed surgical incision left knee Neuro: AO x3, CN II-XII grossly intact, moves all extremities Psych: affect normal, mood normal, not suicidal, not homicidal Initial Vital Signs Initial Vital Signs: Vital Signs Temperature 98.4 F 04/01/23 07:21 Pulse Rate 87 04/01/23 07:21 Respiratory Rate 18 04/01/23 07:21 Blood Pressure 155/79 H 04/01/23 07:21 Pulse Oximetry 98 04/01/23 07:21 Oxygen Delivery Method Room Air 04/01/23 07:21 Course Orders Ordered: ED Orders 04/01/23 07:21 periph venous low extrem lt Stat 04/01/23 07:29 CBC Auto Diff [Complete Blood Count AUTO DIFF] Stat CMP [Comprehensive Metabolic Panel] Stat PT [Prothrombin Time INR] Stat Vital Signs Vital signs: Vital Signs - 8 hr 04/01/23 07:21 04/01/23 07:56 04/01/23 08:00 Temperature 98.4 F Pulse Rate 87 69 71 Respiratory Rate 18 Blood Pressure 155/79 H Pulse Oximetry 98 97 98 Oxygen Delivery Method Room Air MDM - Extremity (Nontraumatic) Differential Diagnosis Differential diagnosis: Likely cellulitis, superficial thrombophlebitis and lower extremity edema Lab Data 04/01/23 07:29 04/01/23 07:29 Labs: Lab Results 04/01/23 Range/Units 07:29 WBC 6.5 (4.5-11.0) X10^3/uL RBC 4.23 (4.0-5.2) X10^6/uL Hgb 13.1 (12.0-16.0) g/dL Hct 38.3 (36-46) % MCV 90.4 (80-100) fL MCH 30.9 (26-34) PG MCHC 34.2 (30-36) % RDW 13.7 (11.6-14.8) % Plt Count 245 (150-400) X10^3/uL Neut % (Auto) 65.0 (50-75) % Lymph % (Auto) 20.2 L (25-40) % [place] % (Auto) 8.3 (3-14) % Eos % (Auto) 6.0 H (2-4) % Baso % (Auto) 0.5 (0-2) % Neut # (Auto) 4200 (5435-7564) /uL Lymph # (Auto) 1300 (4672-3293) /uL [place] # (Auto) 500 (0-900) /uL Eos # (Auto) 400 (0-450) /uL Baso # (Auto) 0 (0-100) /uL PT 12.1 (9.4-12.5) SECONDS INR 1.1 (0.9-1.3) Sodium 139 (137-145) mmol/L Potassium 4.0 (3.4-5.1) mmol/L Chloride 102 (98-107) mmol/L Carbon Dioxide 30 (22-32) mmol/L BUN 23 H (7-17) mg/dL Creatinine 0.69 (0.52-1.04) mg/dL Estimated GFR > 60 (>60) mL/min BUN/Creatinine Ratio 33.3 H (6-22) Glucose 117 H (80-110) mg/dL Calcium 9.7 (8.4-10.2) mg/dL Total Bilirubin 0.7 (0.2-1.3) mg/dL AST 27 (14-36) IU/L ALT 21 (<35) IU/L Alkaline Phosphatase 79 (38-126) U/L Total Protein 7.4 (6.3-8.2) g/dL Albumin 4.4 (3.5-5.0) g/dL Globulin 3.0 (1.7-4.1) g/dL Albumin/Globulin Ratio 1.5 (1.0-2.8) MDM Narrative Medical decision making narrative: Well-appearing patient with leg pain and swelling after her surgery. Left knee and lower extremity do appear to be larger in size in the right knee and lower extremity. Patient has full range of motion, able to bear weight Laboratory work is reviewed, unremarkable. No leukocytosis or left shift to indicate infection. Ultrasound of the lower extremity shows some soft tissue edema without any evidence of lower extremity DVT. Patient informed of all lab and imaging findings. She states she has suspicions that she may have some nerve damage following her surgery. I counseled the patient to follow up with her orthopedic surgeon as soon as possible. In the meantime I recommended elevating the limb when at rest and apply ice as needed for pain and swelling. ED return precautions discussed at bedside. Patient expressed understanding of the plan and is in agreement at this time. All questions answered at the time of discharge. Discharge Plan Departure Patient Disposition: Home Clinical Impression: Knee swelling Acute knee pain Qualifiers: Laterality: left Qualified Code(s): M25.562 - Pain in left knee Instructions: DI for Knee Pain Activity Restrictions/Additional Instructions: Your ultrasound today did not show a blood clot in your leg, there was mild swelling noted. Please follow up with your orthopedic surgeon. Whenever you are rest elevate your legs and apply ice as needed for pain and swelling. Prescriptions: No Action budesonide-formoterol [Symbicort] 160-4.5 mcg/actuation HFA aerosol inhaler 1 puff inhalation BID Qty: 10.2 11RF bisoprolol-hydrochlorothiazide 2.5-6.25 mg tablet 1 tab PO DAILY Qty: 90 3RF pramipexole [Mirapex] 0.5 mg tablet 0.5 mg PO DAILY Qty: 90 3RF trazodone 50 mg tablet 25 - 50 mg PO BEDTIME PRN (Reason: insomnia) Qty: 90 3RF Referrals: Shital Houston DO [Primary Care Provider] - Stand Alone Forms: Patient Portal/API
[2023-04-01 07:37] LABS: Add Manual Diff / Slide Review NO; Basophils Absolute Auto 0 /uL (0-100); Basophils Percent Auto 0.5 % (0-2); Eosinophils Absolute Auto 400 /uL (0-450); Hematocrit 38.3 % (36-46); Hemoglobin 13.1 g/dL (12.0-16.0); Lymphocytes Absolute Auto 1300 /uL (1100-4500); Lymphocytes Percent Auto 20.2 % (25-40); Mean Corpuscular HGB Conc 34.2 % (30-36); Mean Corpuscular Hemoglobin 30.9 PG (26-34); Mean Corpuscular Volume 90.4 fL (80-100); Monocytes Absolute Auto 500 /uL (0-900); Monocytes Percent Auto 8.3 % (3-14); Neutrophils Absolute Auto 4200 /uL (1500-7000); Platelet Count 245 X10^3/uL (150-400); Red Blood Cell Count 4.23 X10^6/uL (4.0-5.2); Red Cell Distribution Width 13.7 % (11.6-14.8); White Blood Cell Count 6.5 X10^3/uL (4.5-11.0)
[2023-04-01 07:44] LABS: INR 1.1 (0.9-1.3); Prothrombin Time 12.1 SECONDS (9.4-12.5)
[2023-04-01 07:50] LABS: Alanine Aminotransferase 21 IU/L (<35); Albumin 4.4 g/dL (3.5-5.0); Albumin Globulin Ratio 1.5 (1.0-2.8); Alkaline Phosphatase 79 U/L (38-126); Aspartate Aminotransferase 27 IU/L (14-36); BUN Creatinine Ratio 33.3 (6-22); Bilirubin Total 0.7 mg/dL (0.2-1.3); Blood Urea Nitrogen 23 mg/dL (7-17); Calcium 9.7 mg/dL (8.4-10.2); Carbon Dioxide 30 mmol/L (22-32); Chloride 102 mmol/L (98-107); Estimated Glomerular Filt Rate > 60 mL/min (>60); Glucose 117 mg/dL (80-110); HEMOLYSIS < 15 (0-50); Sodium 139 mmol/L (137-145); Total Protein 7.4 g/dL (6.3-8.2)
[2023-04-01 07:56] VITALS: PULSE 69; O2SAT 97
[2023-04-01 08:00] VITALS: PULSE 71; O2SAT 98
--- NOTE | 2023-04-01 08:00 | PC.NURSE ---
1+ DP pulse palpable to L foot, doppler also used, easily found; Dr. Staples aware.
[2023-04-01 08:43] VITALS: PULSE 68; RESP 18; O2SAT 98
== END 2023-04-01 08:44 | disposition home or self-care (01) ==
PROVIDERS: Emergency Provider Emergency Medicine; Family Provider Family Medicine; PCP Family Medicine
DX: M79.89 Other specified soft tissue disorders (principal); M25.562 Pain in left knee
CPT/HCPCS: 80053; 85025; 85610; 93971; 99281; 99283

== ENCOUNTER 2023-04-01 10:30 | Outpatient (RCR) | payer MEDICARE, BC, SELFPAY ==
--- NOTE | 2023-02-17 15:55 | PT.OIE ---
Current Diagnoses Pain in left knee (02/17/23) Stiffness of left knee, not elsewhere classified (02/17/23) Other abnormalities of gait and mobility (02/17/23) Aftercare following joint replacement surgery (02/17/23) Presence of left artificial knee joint (02/17/23) Past Medical History (Last Updated 01/16/23 @ 09:50 by Thiago Polo MD) Benign essential HTN Carpal tunnel syndrome (~1993) Chicken pox Chronic back pain (~1995) Chronic cough DVT (deep venous thrombosis) (~2019) Fatigue Frequent headaches Hearing loss (~1983) Hot flash, menopausal Insomnia Measles Mumps Palpitations Restless legs syndrome (RLS) Past Surgical History (Last Updated 04/15/22 @ 22:02 by Melissa Marie) Anesthesia History of carpal tunnel release (~1996) History of discectomy (~1999) History of knee replacement (~2017) Status post hysterectomy (~1993) Visit Care Team Role Provider Type Other Providers Specialty: Address: Phone: Fax: Email: Shital Houston DO Family Provider Physician Primary Care Provider Specialty: Family Practice Address: [address] [place] [address] [address], [place], [facility] Email: [email or web address] Obrien Attending Provider Non-Staff Referring Provider Specialty: Orthopedic Surgery Address: [address] [place] [address], [address], [place], [facility] Email: Physical Therapy Initial Evaluation PT-OP-A Visit Information Start: 02/17/23 15:29 Freq: Status: Active Protocol: Document 02/17/23 14:45 DCW (Rec: 02/17/23 15:39 DCW [id number]) Out-Patient Physical Therapy Visit Information Visit Information Visit Type Initial Evaluation Visit Start Time 14:45 Visit Stop Time 15:20 Total Visit Minutes 35 Visit Number 1 Number of ROLLOFF DRIVER Visits 0 Evaluation Information Evaluation Date 02/17/23 PT-OP-B Current Condition Start: 02/17/23 15:29 Freq: Status: Active Protocol: Document 02/17/23 14:45 DCW (Rec: 02/17/23 15:39 DCW [id number]) Current Condition History of Current Condition Onset Date 02/12/23 Current Complaints Knee pain/stiffness following left TKA History of Current Condition Pt is a 72 year old female presenting to skilled therapy five days s/p left TKA. Pt notes she had a right TKA six years ago, and already feels like her right one was an easier recovery with less swelling, but acknowledges that she was six years younger at the time, which likely made a difference. Pt rates her pain as a 6/10. Has 14 steps up to her bedroom, and has largely been staying in her room since returning home, but does not feel like the stairs have been a problem. Currently ambulating with a FWW. Pt has good overall understanding about recovery following TKA due to prior TKA . Already doing very well with post-op HEP, and also has a recumbent bike at home, which she notes just today she was able to get a full rotation. PT-OP-C Subjective Start: 02/17/23 15:29 Freq: Status: Active Protocol: Document 02/17/23 14:45 DCW (Rec: 02/17/23 15:39 DCW [id number]) OP-PT Subjective Patient Comments Patient Comments This one feels swollen. More swollen thatn the right one six years ago. Patient Questionnaires Lower Extremity Functional Scale LEFS Score 7/80 = 8.75% LEFS Impairment 80 to 99% Impaired (Score 1-16 ) OP-PT Pain Assessment Pain Assessment Grid Paper Pain Assessment Grid Completed Yes Location Left Knee Intensity 6 Scale Used Numeric (0 - 10) PT-OP-E Functional Tests Start: 02/17/23 15:29 Freq: Status: Active Protocol: Document 02/17/23 14:45 DCW (Rec: 02/17/23 15:39 DCW [id number]) Functional Tests 2 Minute Walk Test Distance 207' Device Used FWW Comments 1.73 ft/sec Five Times Sit to Stand Test Score 21.96 Comments UE use Timed Up and Go (TUG) Score 18.86 Comments Three-trial average (22.23, 17.17 17.17) TUG Impairment Rating 80 to <100% Impaired (Score 18 -19) PT-OP-G Mobility & Gait Start: 02/17/23 15:29 Freq: Status: Active Protocol: Document 02/17/23 14:45 DCW (Rec: 02/17/23 15:39 DC [id number]) OP Gait Assessment Gait Gait Assistance Required: Independent Distance (Feet) 207 Assistive Devices Assistive Device Front Wheeled Walker Gait Deviations General Gait Pattern Ataxic,Flexed Trunk,Step-to Gait Factors Limiting Gait Function Factors Limiting Gait Function Decreased Activity Tolerance, Decreased Strength,Limited Range of Motion,Pain PT-OP-J Posture/Palpation/Skin Start: 02/17/23 15:40 Freq: Status: Active Protocol: Document 02/17/23 14:45 DCW (Rec: 02/17/23 15:42 DCW [id number]) Skin Assessment Circumference Measurement Calf Location Left mid-calf Measurement (Centimeters) 38.4 Comments Right = 35.1 cm Knee Location Left joint line Measurement (Centimeters) 46.7 Comments Right = 39.8 cm Thigh Location 10 cm superior to left joint line Measurement (Centimeters) 52.8 Comments Right = 51.5 cm PT-OP-K Range of Motion Start: 02/17/23 15:29 Freq: Status: Active Protocol: Document 02/17/23 14:45 DCW (Rec: 02/17/23 15:39 DCW [id number]) Knee Goniometric Range of Motion Knee Left Knee ROM WFL No Patient Position Sitting Flexion Active (degrees) 78 Extension Active (degrees) 19 Comments Supine R knee ROM = 16?-82? Knee ROM Limitations Knee ROM Limitations Soft Tissue Tightness,Bony Restriction,Muscle Weakness, Muscle Tone,Pain,Swelling PT-OP-T Assessment and Plan Start: 02/17/23 15:29 Freq: Status: Active Protocol: Document 02/17/23 14:45 DCW (Rec: 02/17/23 15:55 DCW [id number]) Physical Therapy Assessment Rehab Potential Rehabilitation Potential Excellent Evaluation Complexity Number of Personal Factors/Comorbidities 1-2 Number of Body Systems Impaired 1-2 Clinical Presentation at Evaluation Stable Impairments Impairments Activity Tolerance,Balance, Edema,Functional Activities, Functional Mobility,Gait,Pain, ROM,Soft Tissue Mobility, Strength Goals Three Impairment Pt currently scores 18.86 on the TUG Short Term Goal (STG) Pt to improve TUG score to <10 without an assistive device in order to demonstrate a decreased risk in falls. STG Duration 03/20/23 Two Impairment Significantly limited left knee ROM (supine 16?-82?) Skilled Nursing Goal (LTG) Pt to improve supine left knee ROM to 0?-120? in order to fully return to prior level of unassisted functional mobility to increase level of independence. LTG Duration 04/19/23 One Impairment Pt unable to tolerate a full six minute walk test Skilled Nursing Goal (LTG) Pt to demonstrate ability to complete a full 6 MWT without rest, while ambulating at least 900' without an assistive device in order to demonstrate improved activity tolerance. LTG Duration 04/19/23 Assessment Summary Assessment Pt presents as expected five days s/p left TKA. Pt has limitations in knee strength, ROM, gait ability, and activity tolerance. Pt already doing very well with appropriate post-op home exercises, as well as utilizing her recumbent stationary bike. Increased left edema, bandaging, and pain all impacting ROM limitations. Pt feels comfortable with current HEP, but very motivated to return to PT for next follow-up visit to continue to work on mobility and strengthening. Pt has no concerns or questions at this time. Would like to work on transitioning from FWW to SPC as soon as possible. Physical Therapy Plan Frequency and Duration Frequency of Treatment 2x/Week Plan of Care Start Date 02/17/23 Plan of Care End Date 04/19/23 Therapeutic Interventions Therapeutic Interventions Gait Training,Home Exercise Program,Joint Mobilizations, Manual Therapy,Neuromuscular Re-education,Patient/Caregiver Education,Self-Care/Home Management,Soft Tissue Mobilization,Therapeutic Activities,Therapeutic Exercises Modalities Cold Pack/Ice Massage,Electric Stimulation,Hot Packs, Ultrasound Next Visit Focus/Plan Next Note Type Treatment Note Next Visit Plan ROM, strengthening, gait training
--- NOTE | 2023-02-17 15:56 | PT.OPPOC ---
Physical, Occupational & Speech Therapy At [facility] Current Diagnoses Pain in left knee (02/17/23) Stiffness of left knee, not elsewhere classified (02/17/23) Other abnormalities of gait and mobility (02/17/23) Aftercare following joint replacement surgery (02/17/23) Presence of left artificial knee joint (02/17/23) Visit Care Team Role Provider Type Other Providers Specialty: Address: Phone: Fax: Email: Shital Houston DO Family Provider Physician Primary Care Provider Specialty: Family Practice Address: [address] [place] [address] [address], [place], [address] Email: [email or web address] Attending Provider Non-Staff Referring Provider Specialty: Orthopedic Surgery Address: [address] [place] [address] [address], [place], [facility] Email: Plan Of Care PT-OP-T Assessment and Plan Start: 02/17/23 15:29 Freq: Status: Active Protocol: Document 02/17/23 14:45 DCW (Rec: 02/17/23 15:55 DCW [id number]) Physical Therapy Assessment Rehab Potential Rehabilitation Potential Excellent Evaluation Complexity Number of Personal Factors/Comorbidities 1-2 Number of Body Systems Impaired 1-2 Clinical Presentation at Evaluation Stable Impairments Impairments Activity Tolerance,Balance, Edema,Functional Activities, Functional Mobility,Gait,Pain, ROM,Soft Tissue Mobility, Strength Goals Three Impairment Pt currently scores 18.86 on the TUG Short Term Goal (STG) Pt to improve TUG score to <10 without an assistive device in order to demonstrate a decreased risk in falls. STG Duration 03/20/23 Two Impairment Significantly limited left knee ROM (supine 16?-82?) Anodize Machine Operator Goal (LTG) Pt to improve supine left knee ROM to 0?-120? in order to fully return to prior level of unassisted functional mobility to increase level of independence. LTG Duration 04/19/23 One Impairment Pt unable to tolerate a full six minute walk test Anodize Machine Operator Goal (LTG) Pt to demonstrate ability to complete a full 6 MWT without rest, while ambulating at least 900' without an assistive device in order to demonstrate improved activity tolerance. LTG Duration 04/19/23 Assessment Summary Assessment Pt presents as expected five days s/p left TKA. Pt has limitations in knee strength, ROM, gait ability, and activity tolerance. Pt already doing very well with appropriate post-op home exercises, as well as utilizing her recumbent stationary bike. Increased left edema, bandaging, and pain all impacting ROM limitations. Pt feels comfortable with current HEP, but very motivated to return to PT for next follow-up visit to continue to work on mobility and strengthening. Pt has no concerns or questions at this time. Would like to work on transitioning from FWW to SPC as soon as possible. Physical Therapy Plan Frequency and Duration Frequency of Treatment 2x/Week Plan of Care Start Date 02/17/23 Plan of Care End Date 04/19/23 Therapeutic Interventions Therapeutic Interventions Gait Training,Home Exercise Program,Joint Mobilizations, Manual Therapy,Neuromuscular Re-education,Patient/Caregiver Education,Self-Care/Home Management,Soft Tissue Mobilization,Therapeutic Activities,Therapeutic Exercises Modalities Cold Pack/Ice Massage,Electric Stimulation,Hot Packs, Ultrasound Next Visit Focus/Plan Next Note Type Treatment Note Next Visit Plan ROM, strengthening, gait training Plan of Care Dates Plan of Care Start Date 02/17/23 Plan of Care End Date 04/19/23 Electronically Signed by: Arturo Foley, PT 02/17/23 [id number] If you are in agreement with this Plan of Care, please return a signed and dated copy. I have reviewed this Plan of Care and certify that the skilled therapy services above are required to meet the patient?s needs. Physician Signature Date Printed Name and Credentials Clinical Instructor Signature Printed Name and Credentials
--- NOTE | 2023-02-24 15:31 | PT.OTN ---
Current Diagnoses Pain in left knee (02/24/23) Stiffness of left knee, not elsewhere classified (02/24/23) Other abnormalities of gait and mobility (02/24/23) Aftercare following joint replacement surgery (02/24/23) Presence of left artificial knee joint (02/24/23) Physical Therapy Treatment Note PT-OP-A Visit Information Start: 02/17/23 15:29 Freq: Status: Active Protocol: Document 02/24/23 14:45 DCW (Rec: 02/24/23 15:30 DCW [id number]) Out-Patient Physical Therapy Visit Information Visit Information Visit Type Treatment Note Visit Start Time 14:45 Visit Stop Time 15:30 Total Visit Minutes 45 Visit Number 2 Number of BROOCH MAKER NOVELTY Visits 0 Evaluation Information Evaluation Date 02/17/23 PT-OP-B Current Condition Start: 02/17/23 15:29 Freq: Status: Active Protocol: Document 02/17/23 14:45 DCW (Rec: 02/17/23 15:39 DCW [id number]) Current Condition History of Current Condition Onset Date 02/12/23 Current Complaints Knee pain/stiffness following left TKA History of Current Condition Pt is a 72 year old female presenting to skilled therapy five days s/p left TKA. Pt notes she had a right TKA six years ago, and already feels like her right one was an easier recovery with less swelling, but acknowledges that she was six years younger at the time, which likely made a difference. Pt rates her pain as a 6/10. Has 14 steps up to her bedroom, and has largely been staying in her room since returning home, but does not feel like the stairs have been a problem. Currently ambulating with a FWW. Pt has good overall understanding about recovery following TKA due to prior TKA . Already doing very well with post-op HEP, and also has a recumbent bike at home, which she notes just today she was able to get a full rotation. PT-OP-C Subjective Start: 02/17/23 15:29 Freq: Status: Active Protocol: Document 02/24/23 14:45 DCW (Rec: 02/24/23 15:30 DCW [id number]) OP-PT Subjective Patient Comments Patient Comments It's hurting a lot more than I think it should. PT-OP-E Functional Tests Start: 02/17/23 15:29 Freq: Status: Active Protocol: Document 02/17/23 14:45 DCW (Rec: 02/17/23 15:39 DCW [id number]) Functional Tests 2 Minute Walk Test Distance 207' Device Used FWW Comments 1.73 ft/sec Five Times Sit to Stand Test Score 21.96 Comments UE use Timed Up and Go (TUG) Score 18.86 Comments Three-trial average (22.23, 17.17 17.17) TUG Impairment Rating 80 to <100% Impaired (Score 18 -19) PT-OP-G Mobility & Gait Start: 02/17/23 15:29 Freq: Status: Active Protocol: Document 02/17/23 14:45 DCW (Rec: 02/17/23 15:39 DCW [id number]) OP Gait Assessment Gait Gait Assistance Required: Independent Distance (Feet) 207 Assistive Devices Assistive Device Front Wheeled Walker Gait Deviations General Gait Pattern Ataxic,Flexed Trunk,Step-to Gait Factors Limiting Gait Function Factors Limiting Gait Function Decreased Activity Tolerance, Decreased Strength,Limited Range of Motion,Pain PT-OP-J Posture/Palpation/Skin Start: 02/17/23 15:40 Freq: Status: Active Protocol: Document 02/17/23 14:45 DCW (Rec: 02/17/23 15:42 DCW [id number]) Skin Assessment Circumference Measurement Calf Location Left mid-calf Measurement (Centimeters) 38.4 Comments Right = 35.1 cm Knee Location Left joint line Measurement (Centimeters) 46.7 Comments Right = 39.8 cm Thigh Location 10 cm superior to left joint line Measurement (Centimeters) 52.8 Comments Right = 51.5 cm PT-OP-K Range of Motion Start: 02/17/23 15:29 Freq: Status: Active Protocol: Document 02/17/23 14:45 DCW (Rec: 02/17/23 15:39 DCW [id number]) Knee Goniometric Range of Motion Knee Left Knee ROM WFL No Patient Position Sitting Flexion Active (degrees) 78 Extension Active (degrees) 19 Comments Supine R knee ROM = 16?-82? Knee ROM Limitations Knee ROM Limitations Soft Tissue Tightness,Bony Restriction,Muscle Weakness, Muscle Tone,Pain,Swelling PT-OP-Q Treatments Start: 02/17/23 15:29 Freq: Status: Active Protocol: Document 02/24/23 14:45 DCW (Rec: 02/24/23 15:30 DCW [id number]) Cardio Equipment Recumbent Bicycle Duration (Minutes) 6 Resistance 0 Seat Position 6 Other Partial rotations Gym Equipment Shuttle Recovery Bilateral Squats Resistance 25# Therapeutic Exercises Supine Exercises SLR Supine Exercise Name SLR Side left Heelslides Supine Exercise Name Heelslides Side left Extension Stretch Supine Exercise Name Supine Extension stretch Side left Sidelying Exercises LAQ Sidelying Exercise Name LAQ Side left Standing Exercises Hip Abduction Standing Exercise Name Hip Abduction Side bilateral Flexion stretch Standing Exercise Name Step flexion stretch Side left Manual Therapy Treatment Joint Mobilizations Left knee Joint A<->P left knee joint mobs Grade III Body Position Hooklying PT-OP-T Assessment and Plan Start: 02/17/23 15:29 Freq: Status: Active Protocol: Document 02/24/23 14:45 DCW (Rec: 02/24/23 15:30 DCW [id number]) Physical Therapy Assessment Impairments Impairments Activity Tolerance,Balance, Edema,Functional Activities, Functional Mobility,Gait,Pain, ROM,Soft Tissue Mobility, Strength Goals Three Impairment Pt currently scores 18.86 on the TUG Short Term Goal (STG) Pt to improve TUG score to <10 without an assistive device in order to demonstrate a decreased risk in falls. STG Duration 03/20/23 Two Impairment Significantly limited left knee ROM (supine 16?-82?) Prison Goal (LTG) Pt to improve supine left knee ROM to 0?-120? in order to fully return to prior level of unassisted functional mobility to increase level of independence. LTG Duration 04/19/23 One Impairment Pt unable to tolerate a full six minute walk test Cnc Maintenance Mechanic Goal (LTG) Pt to demonstrate ability to complete a full 6 MWT without rest, while ambulating at least 900' without an assistive device in order to demonstrate improved activity tolerance. LTG Duration 04/19/23 Assessment Summary Assessment Pt has definitely suffered a set-back since last visit, significantly less ROM and increased pain with ambulation . Does have a surgical follow- up on Friday. by end of session, moving much better through available ROM, measured PROM 9-91? Physical Therapy Plan Frequency and Duration Frequency of Treatment 2x/Week Plan of Care Start Date 02/17/23 Plan of Care End Date 04/19/23 Therapeutic Interventions Therapeutic Interventions Gait Training,Home Exercise Program,Joint Mobilizations, Manual Therapy,Neuromuscular Re-education,Patient/Caregiver Education,Self-Care/Home Management,Soft Tissue Mobilization,Therapeutic Activities,Therapeutic Exercises Modalities Cold Pack/Ice Massage,Electric Stimulation,Hot Packs, Ultrasound Next Visit Focus/Plan Next Note Type Treatment Note Next Visit Plan ROM, strengthening, gait training
--- NOTE | 2023-02-27 16:59 | PT.OTN ---
Current Diagnoses Pain in left knee (02/27/23) Stiffness of left knee, not elsewhere classified (02/27/23) Other abnormalities of gait and mobility (02/27/23) Aftercare following joint replacement surgery (02/27/23) Presence of left artificial knee joint (02/27/23) Physical Therapy Treatment Note PT-OP-A Visit Information Start: 02/17/23 15:29 Freq: Status: Active Protocol: Document 02/27/23 14:44 SW (Rec: 02/27/23 15:34 SW [id number]) Out-Patient Physical Therapy Visit Information Visit Information Visit Type Treatment Note Visit Start Time 14:45 Visit Stop Time 15:27 Total Visit Minutes 42 Visit Number 3 Number of INFORMATION ASSURANCE Visits 1 PT-OP-B Current Condition Start: 02/17/23 15:29 Freq: Status: Active Protocol: Document 02/17/23 14:45 DCW (Rec: 02/17/23 15:39 DCW [id number]) Current Condition History of Current Condition Onset Date 02/12/23 Current Complaints Knee pain/stiffness following left TKA History of Current Condition Pt is a 72 year old female presenting to skilled therapy five days s/p left TKA. Pt notes she had a right TKA six years ago, and already feels like her right one was an easier recovery with less swelling, but acknowledges that she was six years younger at the time, which likely made a difference. Pt rates her pain as a 6/10. Has 14 steps up to her bedroom, and has largely been staying in her room since returning home, but does not feel like the stairs have been a problem. Currently ambulating with a FWW. Pt has good overall understanding about recovery following TKA due to prior TKA . Already doing very well with post-op HEP, and also has a recumbent bike at home, which she notes just today she was able to get a full rotation. PT-OP-C Subjective Start: 02/17/23 15:29 Freq: Status: Active Protocol: Document 02/27/23 14:44 SW (Rec: 02/27/23 15:34 SW [id number]) OP-PT Subjective Patient Comments Patient Comments Pt feels better than she did last session, but still swollen and in a lot of pain. Pt using mostly cane, occasionally FWW when knee is really stiff. Pt reports apt with ortho doctor tomorrow. PT-OP-E Functional Tests Start: 02/17/23 15:29 Freq: Status: Active Protocol: Document 02/17/23 14:45 DCW (Rec: 02/17/23 15:39 DCW [id number]) Functional Tests 2 Minute Walk Test Distance 207' Device Used FWW Comments 1.73 ft/sec Five Times Sit to Stand Test Score 21.96 Comments UE use Timed Up and Go (TUG) Score 18.86 Comments Three-trial average (22.23, 17.17 17.17) TUG Impairment Rating 80 to <100% Impaired (Score 18 -19) PT-OP-G Mobility & Gait Start: 02/17/23 15:29 Freq: Status: Active Protocol: Document 02/17/23 14:45 DCW (Rec: 02/17/23 15:39 DCW [id number]) OP Gait Assessment Gait Gait Assistance Required: Independent Distance (Feet) 207 Assistive Devices Assistive Device Front Wheeled Walker Gait Deviations General Gait Pattern Ataxic,Flexed Trunk,Step-to Gait Factors Limiting Gait Function Factors Limiting Gait Function Decreased Activity Tolerance, Decreased Strength,Limited Range of Motion,Pain PT-OP-J Posture/Palpation/Skin Start: 02/17/23 15:40 Freq: Status: Active Protocol: Document 02/17/23 14:45 DCW (Rec: 02/17/23 15:42 DCW [id number]) Skin Assessment Circumference Measurement Calf Location Left mid-calf Measurement (Centimeters) 38.4 Comments Right = 35.1 cm Knee Location Left joint line Measurement (Centimeters) 46.7 Comments Right = 39.8 cm Thigh Location 10 cm superior to left joint line Measurement (Centimeters) 52.8 Comments Right = 51.5 cm PT-OP-K Range of Motion Start: 02/17/23 15:29 Freq: Status: Active Protocol: Document 02/17/23 14:45 DCW (Rec: 02/17/23 15:39 DCW [id number]) Knee Goniometric Range of Motion Knee Left Knee ROM WFL No Patient Position Sitting Flexion Active (degrees) 78 Extension Active (degrees) 19 Comments Supine R knee ROM = 16?-82? Knee ROM Limitations Knee ROM Limitations Soft Tissue Tightness,Bony Restriction,Muscle Weakness, Muscle Tone,Pain,Swelling PT-OP-Q Treatments Start: 02/17/23 15:29 Freq: Status: Active Protocol: Document 02/27/23 14:44 SW (Rec: 02/27/23 15:34 [id number]) Cardio Equipment Recumbent Bicycle Duration (Minutes) 6 Resistance 0 Seat Position 6 Other Partial rotations Gym Equipment Shuttle Recovery Bilateral Squats Resistance 25# Therapeutic Exercises Supine Exercises SLR Supine Exercise Name SLR Side left Heelslides Supine Exercise Name Heelslides Side left Extension Stretch Supine Exercise Name Supine Extension stretch Side left Equipment Used Therapist assist Sitting Exercises LAQ Sitting Exercise Name LAQ Side left Knee Flex Sitting Exercise Name chair scoot knee flexion Side left Equipment Used @ mat table Standing Exercises Calf raises Standing Exercise Name calf raises Side bilateral Equipment Used @ bar Reps/Minutes 2x10 Hip Abduction Standing Exercise Name Hip Abduction Side bilateral Flexion stretch Standing Exercise Name Step flexion stretch Side left Self-Care/Home Management Treatment Education Patient Education Pain Management Other Education Physiological effects of icing . PT-OP-T Assessment and Plan Start: 02/17/23 15:29 Freq: Status: Active Protocol: Document 02/27/23 14:44 (Rec: 02/27/23 15:34 [id number]) Physical Therapy Assessment Goals Three Impairment Pt currently scores 18.86 on the TUG Short Term Goal (STG) Pt to improve TUG score to <10 without an assistive device in order to demonstrate a decreased risk in falls. STG Duration 03/20/23 Two Impairment Significantly limited left knee ROM (supine 16?-82?) Correction Goal (LTG) Pt to improve supine left knee ROM to 0?-120? in order to fully return to prior level of unassisted functional mobility to increase level of independence. LTG Duration 04/19/23 One Impairment Pt unable to tolerate a full six minute walk test Computer Forensics Technician Goal (LTG) Pt to demonstrate ability to complete a full 6 MWT without rest, while ambulating at least 900' without an assistive device in order to demonstrate improved activity tolerance. LTG Duration 04/19/23 Assessment Summary Assessment Focused on L knee ROM and strengthening today. Pt able to get to 92 degrees flex post session today. Educated pt on physiological effects of icing and elevation for pn management and swelling. Physical Therapy Plan Frequency and Duration Frequency of Treatment 2x/Week Plan of Care Start Date 02/17/23 Plan of Care End Date 04/19/23 Therapeutic Interventions Therapeutic Interventions Gait Training,Home Exercise Program,Joint Mobilizations, Manual Therapy,Neuromuscular Re-education,Patient/Caregiver Education,Self-Care/Home Management,Soft Tissue Mobilization,Therapeutic Activities,Therapeutic Exercises Modalities Cold Pack/Ice Massage,Electric Stimulation,Hot Packs, Ultrasound Next Visit Focus/Plan Next Note Type Treatment Note Next Visit Plan ROM, strengthening, gait training
--- NOTE | 2023-03-03 15:30 | PT.OTN ---
Current Diagnoses Pain in left knee (03/03/23) Stiffness of left knee, not elsewhere classified (03/03/23) Other abnormalities of gait and mobility (03/03/23) Aftercare following joint replacement surgery (03/03/23) Presence of left artificial knee joint (03/03/23) Physical Therapy Treatment Note PT-OP-A Visit Information Start: 02/17/23 15:29 Freq: Status: Active Protocol: Document 03/03/23 14:47 DCW (Rec: 03/03/23 15:30 DCW [id number]) Out-Patient Physical Therapy Visit Information Visit Information Visit Type Treatment Note Visit Start Time 14:47 Visit Stop Time 15:30 Total Visit Minutes 43 Visit Number 4 Number of METAL WORK DUCT INSTALLER Visits 0 Evaluation Information Evaluation Date 02/17/23 PT-OP-B Current Condition Start: 02/17/23 15:29 Freq: Status: Active Protocol: Document 02/17/23 14:45 DCW (Rec: 02/17/23 15:39 DCW [id number]) Current Condition History of Current Condition Onset Date 02/12/23 Current Complaints Knee pain/stiffness following left TKA History of Current Condition Pt is a 72 year old female presenting to skilled therapy five days s/p left TKA. Pt notes she had a right TKA six years ago, and already feels like her right one was an easier recovery with less swelling, but acknowledges that she was six years younger at the time, which likely made a difference. Pt rates her pain as a 6/10. Has 14 steps up to her bedroom, and has largely been staying in her room since returning home, but does not feel like the stairs have been a problem. Currently ambulating with a FWW. Pt has good overall understanding about recovery following TKA due to prior TKA . Already doing very well with post-op HEP, and also has a recumbent bike at home, which she notes just today she was able to get a full rotation. PT-OP-C Subjective Start: 02/17/23 15:29 Freq: Status: Active Protocol: Document 03/03/23 14:47 DCW (Rec: 03/03/23 15:30 DCW [id number]) OP-PT Subjective Patient Comments Patient Comments Pt notes less overall pain, but still darn stiff. Reports she didn't get her carmen removed yet, surgeon concerned it was still too swollen. PT-OP-E Functional Tests Start: 02/17/23 15:29 Freq: Status: Active Protocol: Document 02/17/23 14:45 DCW (Rec: 02/17/23 15:39 DCW [id number]) Functional Tests 2 Minute Walk Test Distance 207' Device Used FWW Comments 1.73 ft/sec Five Times Sit to Stand Test Score 21.96 Comments UE use Timed Up and Go (TUG) Score 18.86 Comments Three-trial average (22.23, 17.17 17.17) TUG Impairment Rating 80 to <100% Impaired (Score 18 -19) PT-OP-G Mobility & Gait Start: 02/17/23 15:29 Freq: Status: Active Protocol: Document 02/17/23 14:45 DCW (Rec: 02/17/23 15:39 DCW [id number]) OP Gait Assessment Gait Gait Assistance Required: Independent Distance (Feet) 207 Assistive Devices Assistive Device Front Wheeled Walker Gait Deviations General Gait Pattern Ataxic,Flexed Trunk,Step-to Gait Factors Limiting Gait Function Factors Limiting Gait Function Decreased Activity Tolerance, Decreased Strength,Limited Range of Motion,Pain PT-OP-J Posture/Palpation/Skin Start: 02/17/23 15:40 Freq: Status: Active Protocol: Document 02/17/23 14:45 DCW (Rec: 02/17/23 15:42 DCW [id number]) Skin Assessment Circumference Measurement Calf Location Left mid-calf Measurement (Centimeters) 38.4 Comments Right = 35.1 cm Knee Location Left joint line Measurement (Centimeters) 46.7 Comments Right = 39.8 cm Thigh Location 10 cm superior to left joint line Measurement (Centimeters) 52.8 Comments Right = 51.5 cm PT-OP-K Range of Motion Start: 02/17/23 15:29 Freq: Status: Active Protocol: Document 02/17/23 14:45 DCW (Rec: 02/17/23 15:39 DCW [id number]) Knee Goniometric Range of Motion Knee Left Knee ROM WFL No Patient Position Sitting Flexion Active (degrees) 78 Extension Active (degrees) 19 Comments Supine R knee ROM = 16?-82? Knee ROM Limitations Knee ROM Limitations Soft Tissue Tightness,Bony Restriction,Muscle Weakness, Muscle Tone,Pain,Swelling PT-OP-Q Treatments Start: 02/17/23 15:29 Freq: Status: Active Protocol: Document 03/03/23 14:47 DCW (Rec: 03/03/23 15:30 DCW [id number]) Cardio Equipment Recumbent Bicycle Duration (Minutes) 6 Resistance 0 Seat Position 6 Other Two retro rotations Gym Equipment Shuttle Recovery Bilateral Squats Resistance 37# Therapeutic Exercises Supine Exercises SAQ Supine Exercise Name SAQ Side left Extension Stretch Supine Exercise Name Supine Extension stretch Side left Standing Exercises TKE Standing Exercise Name TKE Side left Resistance Green Calf raises Standing Exercise Name calf raises Side bilateral Equipment Used @ bar Reps/Minutes 2x10 Hip Abduction Standing Exercise Name Hip Abduction Side bilateral Flexion stretch Standing Exercise Name Step flexion stretch Side left Manual Therapy Treatment Joint Mobilizations Left knee Joint A<->P left knee joint mobs Grade III Body Position Hooklying Neuro Re-Education Treatment Balance Activities Foam Details NBOS Foam Stance Surface Blue Comments EO/EC SLS Details SLS PT-OP-T Assessment and Plan Start: 02/17/23 15:29 Freq: Status: Active Protocol: Document 03/03/23 14:47 DCW (Rec: 03/03/23 15:30 DCW [id number]) Physical Therapy Assessment Impairments Impairments Activity Tolerance,Balance, Edema,Functional Activities, Functional Mobility,Gait,Pain, ROM,Soft Tissue Mobility, Strength Goals Three Impairment Pt currently scores 18.86 on the TUG Short Term Goal (STG) Pt to improve TUG score to <10 without an assistive device in order to demonstrate a decreased risk in falls. STG Duration 03/20/23 Two Impairment Significantly limited left knee ROM (supine 16?-82?) Farm Operations Manager Goal (LTG) Pt to improve supine left knee ROM to 0?-120? in order to fully return to prior level of unassisted functional mobility to increase level of independence. LTG Duration 04/19/23 One Impairment Pt unable to tolerate a full six minute walk test Farm Operations Manager Goal (LTG) Pt to demonstrate ability to complete a full 6 MWT without rest, while ambulating at least 900' without an assistive device in order to demonstrate improved activity tolerance. LTG Duration 04/19/23 Assessment Summary Assessment Pt showing much better progress vs last week, able to get two full rotations on recumbent bike, improved quad contraction and increased extension ROM. Continue to focus on left knee ROM and strengthening, as well as gait and balance. Physical Therapy Plan Frequency and Duration Frequency of Treatment 2x/Week Plan of Care Start Date 02/17/23 Plan of Care End Date 04/19/23 Therapeutic Interventions Therapeutic Interventions Gait Training,Home Exercise Program,Joint Mobilizations, Manual Therapy,Neuromuscular Re-education,Patient/Caregiver Education,Self-Care/Home Management,Soft Tissue Mobilization,Therapeutic Activities,Therapeutic Exercises Modalities Cold Pack/Ice Massage,Electric Stimulation,Hot Packs, Ultrasound Next Visit Focus/Plan Next Note Type Treatment Note Next Visit Plan ROM, strengthening, gait training
--- NOTE | 2023-03-06 16:44 | PT.OTN ---
Current Diagnoses Pain in left knee (03/06/23) Stiffness of left knee, not elsewhere classified (03/06/23) Other abnormalities of gait and mobility (03/06/23) Aftercare following joint replacement surgery (03/06/23) Presence of left artificial knee joint (03/06/23) Physical Therapy Treatment Note PT-OP-A Visit Information Start: 02/17/23 15:29 Freq: Status: Active Protocol: Document 03/06/23 14:42 SW (Rec: 03/06/23 16:44 SW [id number]) Out-Patient Physical Therapy Visit Information Visit Information Visit Type Treatment Note Visit Start Time 14:38 Visit Stop Time 15:20 Total Visit Minutes 42 Visit Number 5 Number of HUNTING SALES ASSOCIATE Visits 1 PT-OP-B Current Condition Start: 02/17/23 15:29 Freq: Status: Active Protocol: Document 02/17/23 14:45 DCW (Rec: 02/17/23 15:39 DCW [id number]) Current Condition History of Current Condition Onset Date 02/12/23 Current Complaints Knee pain/stiffness following left TKA History of Current Condition Pt is a 72 year old female presenting to skilled therapy five days s/p left TKA. Pt notes she had a right TKA six years ago, and already feels like her right one was an easier recovery with less swelling, but acknowledges that she was six years younger at the time, which likely made a difference. Pt rates her pain as a 6/10. Has 14 steps up to her bedroom, and has largely been staying in her room since returning home, but does not feel like the stairs have been a problem. Currently ambulating with a FWW. Pt has good overall understanding about recovery following TKA due to prior TKA . Already doing very well with post-op HEP, and also has a recumbent bike at home, which she notes just today she was able to get a full rotation. PT-OP-C Subjective Start: 02/17/23 15:29 Freq: Status: Active Protocol: Document 03/06/23 14:42 SW (Rec: 03/06/23 16:44 SW [id number]) OP-PT Subjective Patient Comments Patient Comments Pt reports she was able to get 5 revolutions on recumbant bicycle at home. Pain is no longer knife like stabbing pain but it is still painful. PT-OP-E Functional Tests Start: 02/17/23 15:29 Freq: Status: Active Protocol: Document 02/17/23 14:45 DCW (Rec: 02/17/23 15:39 DCW [id number]) Functional Tests 2 Minute Walk Test Distance 207' Device Used FWW Comments 1.73 ft/sec Five Times Sit to Stand Test Score 21.96 Comments UE use Timed Up and Go (TUG) Score 18.86 Comments Three-trial average (22.23, 17.17 17.17) TUG Impairment Rating 80 to <100% Impaired (Score 18 -19) PT-OP-G Mobility & Gait Start: 02/17/23 15:29 Freq: Status: Active Protocol: Document 02/17/23 14:45 DCW (Rec: 02/17/23 15:39 DCW [id number]) OP Gait Assessment Gait Gait Assistance Required: Independent Distance (Feet) 207 Assistive Devices Assistive Device Front Wheeled Walker Gait Deviations General Gait Pattern Ataxic,Flexed Trunk,Step-to Gait Factors Limiting Gait Function Factors Limiting Gait Function Decreased Activity Tolerance, Decreased Strength,Limited Range of Motion,Pain PT-OP-J Posture/Palpation/Skin Start: 02/17/23 15:40 Freq: Status: Active Protocol: Document 02/17/23 14:45 DCW (Rec: 02/17/23 15:42 DCW [id number]) Skin Assessment Circumference Measurement Calf Location Left mid-calf Measurement (Centimeters) 38.4 Comments Right = 35.1 cm Knee Location Left joint line Measurement (Centimeters) 46.7 Comments Right = 39.8 cm Thigh Location 10 cm superior to left joint line Measurement (Centimeters) 52.8 Comments Right = 51.5 cm PT-OP-K Range of Motion Start: 02/17/23 15:29 Freq: Status: Active Protocol: Document 02/17/23 14:45 DCW (Rec: 02/17/23 15:39 DCW [id number]) Knee Goniometric Range of Motion Knee Left Knee ROM WFL No Patient Position Sitting Flexion Active (degrees) 78 Extension Active (degrees) 19 Comments Supine R knee ROM = 16?-82? Knee ROM Limitations Knee ROM Limitations Soft Tissue Tightness,Bony Restriction,Muscle Weakness, Muscle Tone,Pain,Swelling PT-OP-Q Treatments Start: 02/17/23 15:29 Freq: Status: Active Protocol: Document 03/06/23 14:42 SW (Rec: 03/06/23 16:44 SW [id number]) Cardio Equipment Recumbent Bicycle Duration (Minutes) 6 Resistance 0 Seat Position 6 Other Two retro rotations Gym Equipment Shuttle Recovery Bilateral Squats Resistance 37#(1 navy) Therapeutic Exercises Supine Exercises SAQ Supine Exercise Name SAQ Side left Standing Exercises Hip extension Standing Exercise Name Hip Extension Side bilateral TKE Standing Exercise Name TKE Side left Resistance Green Calf raises Standing Exercise Name calf raises Side bilateral Equipment Used @ bar Reps/Minutes 2x10 Hip Abduction Standing Exercise Name Hip Abduction Side bilateral Flexion stretch Standing Exercise Name Step flexion stretch Side left Other Exercises Step Up Other Exercise Name Stair step up Side left Equipment Used @ 6 stair Reps/Minutes x 10 Gait Training Gait Activity Gait Device Used w/o, SPC Level of Assistance SBA Surface Stable Distance/Duration x 100 ft Treatment Focus normailizing gait Neuro Re-Education Treatment Balance Activities Foam Details NBOS Foam Stance Surface Blue Comments EO/EC SLS Details SLS PT-OP-T Assessment and Plan Start: 02/17/23 15:29 Freq: Status: Active Protocol: Document 03/06/23 14:42 (Rec: 03/06/23 16:44 [id number]) Physical Therapy Assessment Goals Three Impairment Pt currently scores 18.86 on the TUG Short Term Goal (STG) Pt to improve TUG score to <10 without an assistive device in order to demonstrate a decreased risk in falls. STG Duration 03/20/23 Two Impairment Significantly limited left knee ROM (supine 16?-82?) Buggy Operator Goal (LTG) Pt to improve supine left knee ROM to 0?-120? in order to fully return to prior level of unassisted functional mobility to increase level of independence. LTG Duration 04/19/23 One Impairment Pt unable to tolerate a full six minute walk test Buggy Operator Goal (LTG) Pt to demonstrate ability to complete a full 6 MWT without rest, while ambulating at least 900' without an assistive device in order to demonstrate improved activity tolerance. LTG Duration 04/19/23 Assessment Summary Assessment Pt progressed with 5 full revolutions on recumbant bicycle this session vs 2 last session. Started gait training to improve mechanics, focus on equal weight bearing on LE, pt presented with decreased stance time on LLE. Continued balance, strengthening, and ROM as indicated in POC. Pt is planning to ice and elevate at home post session. Physical Therapy Plan Frequency and Duration Frequency of Treatment 2x/Week Plan of Care Start Date 02/17/23 Plan of Care End Date 04/19/23 Therapeutic Interventions Therapeutic Interventions Gait Training,Home Exercise Program,Joint Mobilizations, Manual Therapy,Neuromuscular Re-education,Patient/Caregiver Education,Self-Care/Home Management,Soft Tissue Mobilization,Therapeutic Activities,Therapeutic Exercises Modalities Cold Pack/Ice Massage,Electric Stimulation,Hot Packs, Ultrasound Next Visit Focus/Plan Next Note Type Treatment Note Next Visit Plan ROM, strengthening, gait training
--- NOTE | 2023-03-26 17:13 | PT.OTN ---
Current Diagnoses Pain in left knee (03/26/23) Stiffness of left knee, not elsewhere classified (03/26/23) Other abnormalities of gait and mobility (03/26/23) Aftercare following joint replacement surgery (03/26/23) Presence of left artificial knee joint (03/26/23) Physical Therapy Treatment Note PT-OP-A Visit Information Start: 02/17/23 15:29 Freq: Status: Active Protocol: Document 03/26/23 13:07 SW (Rec: 03/26/23 17:13 SW [id number]) Out-Patient Physical Therapy Visit Information Visit Information Visit Type Treatment Note Visit Start Time 13:00 Visit Stop Time 13:43 Total Visit Minutes 43 Visit Number 6 Number of MORTGAGE LOAN INTERVIEWER Visits 2 PT-OP-B Current Condition Start: 02/17/23 15:29 Freq: Status: Active Protocol: Document 02/17/23 14:45 DCW (Rec: 02/17/23 15:39 DCW [id number]) Current Condition History of Current Condition Onset Date 02/12/23 Current Complaints Knee pain/stiffness following left TKA History of Current Condition Pt is a 72 year old female presenting to skilled therapy five days s/p left TKA. Pt notes she had a right TKA six years ago, and already feels like her right one was an easier recovery with less swelling, but acknowledges that she was six years younger at the time, which likely made a difference. Pt rates her pain as a 6/10. Has 14 steps up to her bedroom, and has largely been staying in her room since returning home, but does not feel like the stairs have been a problem. Currently ambulating with a FWW. Pt has good overall understanding about recovery following TKA due to prior TKA . Already doing very well with post-op HEP, and also has a recumbent bike at home, which she notes just today she was able to get a full rotation. PT-OP-C Subjective Start: 02/17/23 15:29 Freq: Status: Active Protocol: Document 03/26/23 13:07 SW (Rec: 03/26/23 17:13 SW [id number]) OP-PT Subjective Patient Comments Patient Comments Pt reports getting carmen out , instant relief with improvment in revolutions on bike. Pt still reporting difficulty with swelling and pain going down stairs. Reports doctor would like 3 degrees more for full extension, getting a brace. PT-OP-E Functional Tests Start: 02/17/23 15:29 Freq: Status: Active Protocol: Document 02/17/23 14:45 DCW (Rec: 02/17/23 15:39 DCW [id number]) Functional Tests 2 Minute Walk Test Distance 207' Device Used FWW Comments 1.73 ft/sec Five Times Sit to Stand Test Score 21.96 Comments UE use Timed Up and Go (TUG) Score 18.86 Comments Three-trial average (22.23, 17.17 17.17) TUG Impairment Rating 80 to <100% Impaired (Score 18 -19) PT-OP-G Mobility & Gait Start: 02/17/23 15:29 Freq: Status: Active Protocol: Document 02/17/23 14:45 DCW (Rec: 02/17/23 15:39 DCW [id number]) OP Gait Assessment Gait Gait Assistance Required: Independent Distance (Feet) 207 Assistive Devices Assistive Device Front Wheeled Walker Gait Deviations General Gait Pattern Ataxic,Flexed Trunk,Step-to Gait Factors Limiting Gait Function Factors Limiting Gait Function Decreased Activity Tolerance, Decreased Strength,Limited Range of Motion,Pain PT-OP-J Posture/Palpation/Skin Start: 02/17/23 15:40 Freq: Status: Active Protocol: Document 02/17/23 14:45 DCW (Rec: 02/17/23 15:42 DCW [id number]) Skin Assessment Circumference Measurement Calf Location Left mid-calf Measurement (Centimeters) 38.4 Comments Right = 35.1 cm Knee Location Left joint line Measurement (Centimeters) 46.7 Comments Right = 39.8 cm Thigh Location 10 cm superior to left joint line Measurement (Centimeters) 52.8 Comments Right = 51.5 cm PT-OP-K Range of Motion Start: 02/17/23 15:29 Freq: Status: Active Protocol: Document 02/17/23 14:45 DCW (Rec: 02/17/23 15:39 DCW [id number]) Knee Goniometric Range of Motion Knee Left Knee ROM WFL No Patient Position Sitting Flexion Active (degrees) 78 Extension Active (degrees) 19 Comments Supine R knee ROM = 16?-82? Knee ROM Limitations Knee ROM Limitations Soft Tissue Tightness,Bony Restriction,Muscle Weakness, Muscle Tone,Pain,Swelling PT-OP-Q Treatments Start: 02/17/23 15:29 Freq: Status: Active Protocol: Document 03/26/23 13:07 SW (Rec: 03/26/23 17:13 SW [id number]) Cardio Equipment Recumbent Bicycle Duration (Minutes) 6 Resistance 0 Seat Position 6 Therapeutic Exercises Supine Exercises Extension Stretch Supine Exercise Name Supine Extension stretch Side left Equipment Used 8# weight Reps/Minutes 3 x 2' Sitting Exercises LAQ Sitting Exercise Name LAQ Resistance 4# Reps/Minutes 3x10 Standing Exercises TKE Standing Exercise Name TKE Side left Resistance Green Other Exercises Stairs Other Exercise Name Ascending/Descending Equipment Used Stairs Comments reciprocal x 1 INVESTOR RELATIONS SPECIALIST Manual Therapy Treatment Manual Techniques Edema Massage Body Location LLE Body Position Supine Comments LEs elevated on bolster, retrograde massage, started proximal worked distal, superficial strokes PT-OP-T Assessment and Plan Start: 02/17/23 15:29 Freq: Status: Active Protocol: Document 03/26/23 13:07 SW (Rec: 03/26/23 17:13 [id number]) Physical Therapy Assessment Impairments Impairments Activity Tolerance,Balance, Edema,Functional Activities, Functional Mobility,Gait,Pain, ROM,Soft Tissue Mobility, Strength Goals Three Impairment Pt currently scores 18.86 on the TUG Short Term Goal (STG) Pt to improve TUG score to <10 without an assistive device in order to demonstrate a decreased risk in falls. STG Duration 03/20/23 Two Impairment Significantly limited left knee ROM (supine 16?-82?) Prison Goal (LTG) Pt to improve supine left knee ROM to 0?-120? in order to fully return to prior level of unassisted functional mobility to increase level of independence. LTG Duration 04/19/23 One Impairment Pt unable to tolerate a full six minute walk test Tempering Kiln Tender Goal (LTG) Pt to demonstrate ability to complete a full 6 MWT without rest, while ambulating at least 900' without an assistive device in order to demonstrate improved activity tolerance. LTG Duration 04/19/23 Assessment Summary Assessment Pt reports getting carmen taken out between sessions, significant improvement observed with knee flexion, and decreased antalgic gait with more equal weight shifting between LEs. Pt discontinued use of AD. Session focused on LLE manual therapy to address edema to work toward decreased pain and knee ext ROM. Pt reports no pain descending stairs reciprocally with stair training at end of session today, significant improvement from requiring step to pattern. d/t pain prior to today's session. Pt plans to follow up with PT next session on PT recommendations. Physical Therapy Plan Frequency and Duration Frequency of Treatment 2x/Week Plan of Care Start Date 02/17/23 Plan of Care End Date 04/19/23 Therapeutic Interventions Therapeutic Interventions Gait Training,Home Exercise Program,Joint Mobilizations, Manual Therapy,Neuromuscular Re-education,Patient/Caregiver Education,Self-Care/Home Management,Soft Tissue Mobilization,Therapeutic Activities,Therapeutic Exercises Modalities Cold Pack/Ice Massage,Electric Stimulation,Hot Packs, Ultrasound Next Visit Focus/Plan Next Note Type Treatment Note Next Visit Plan ROM, strengthening, gait training
--- NOTE | 2023-04-01 11:15 | PT.OTN ---
Current Diagnoses Pain in left knee (04/01/23) Stiffness of left knee, not elsewhere classified (04/01/23) Other abnormalities of gait and mobility (04/01/23) Aftercare following joint replacement surgery (04/01/23) Presence of left artificial knee joint (04/01/23) Physical Therapy Treatment Note PT-OP-A Visit Information Start: 02/17/23 15:29 Freq: Status: Active Protocol: Document 04/01/23 10:30 DCW (Rec: 04/01/23 11:14 DCW [id number]) Out-Patient Physical Therapy Visit Information Visit Information Visit Type Discharge Summary Visit Start Time 10:30 Visit Stop Time 11:15 Total Visit Minutes 45 Visit Number 7 Number of FIRE CHIEF DEPUTY Visits 0 Evaluation Information Evaluation Date 02/17/23 PT-OP-B Current Condition Start: 02/17/23 15:29 Freq: Status: Active Protocol: Document 02/17/23 14:45 DCW (Rec: 02/17/23 15:39 DCW [id number]) Current Condition History of Current Condition Onset Date 02/12/23 Current Complaints Knee pain/stiffness following left TKA History of Current Condition Pt is a 72 year old female presenting to skilled therapy five days s/p left TKA. Pt notes she had a right TKA six years ago, and already feels like her right one was an easier recovery with less swelling, but acknowledges that she was six years younger at the time, which likely made a difference. Pt rates her pain as a 6/10. Has 14 steps up to her bedroom, and has largely been staying in her room since returning home, but does not feel like the stairs have been a problem. Currently ambulating with a FWW. Pt has good overall understanding about recovery following TKA due to prior TKA . Already doing very well with post-op HEP, and also has a recumbent bike at home, which she notes just today she was able to get a full rotation. PT-OP-C Subjective Start: 02/17/23 15:29 Freq: Status: Active Protocol: Document 04/01/23 10:30 DCW (Rec: 04/01/23 11:14 DCW [id number]) OP-PT Subjective Patient Comments Patient Comments Movement is good, pain is not good. Pain is mainly at night, she just had an US to check for DVT (negative), so she reports they're worried about nerve damage. PT-OP-E Functional Tests Start: 02/17/23 15:29 Freq: Status: Active Protocol: Document 04/01/23 10:30 DCW (Rec: 04/01/23 11:15 DCW [id number]) Functional Tests 6 Minute Walk Test Distance 1166' Device Used none Comments 3.24 ft/sec Timed Up and Go (TUG) Score 6.7 PT-OP-G Mobility & Gait Start: 02/17/23 15:29 Freq: Status: Active Protocol: Document 02/17/23 14:45 DCW (Rec: 02/17/23 15:39 DCW [id number]) OP Gait Assessment Gait Gait Assistance Required: Independent Distance (Feet) 207 Assistive Devices Assistive Device Front Wheeled Walker Gait Deviations General Gait Pattern Ataxic,Flexed Trunk,Step-to Gait Factors Limiting Gait Function Factors Limiting Gait Function Decreased Activity Tolerance, Decreased Strength,Limited Range of Motion,Pain PT-OP-J Posture/Palpation/Skin Start: 02/17/23 15:40 Freq: Status: Active Protocol: Document 02/17/23 14:45 DCW (Rec: 02/17/23 15:42 DCW [id number]) Skin Assessment Circumference Measurement Calf Location Left mid-calf Measurement (Centimeters) 38.4 Comments Right = 35.1 cm Knee Location Left joint line Measurement (Centimeters) 46.7 Comments Right = 39.8 cm Thigh Location 10 cm superior to left joint line Measurement (Centimeters) 52.8 Comments Right = 51.5 cm PT-OP-K Range of Motion Start: 02/17/23 15:29 Freq: Status: Active Protocol: Document 02/17/23 14:45 DCW (Rec: 02/17/23 15:39 DCW [id number]) Knee Goniometric Range of Motion Knee Left Knee ROM WFL No Patient Position Sitting Flexion Active (degrees) 78 Extension Active (degrees) 19 Comments Supine R knee ROM = 16?-82? Knee ROM Limitations Knee ROM Limitations Soft Tissue Tightness,Bony Restriction,Muscle Weakness, Muscle Tone,Pain,Swelling PT-OP-Q Treatments Start: 02/17/23 15:29 Freq: Status: Active Protocol: Document 04/01/23 10:30 DCW (Rec: 04/01/23 11:14 DCW [id number]) Cardio Equipment Recumbent Bicycle Duration (Minutes) 8 Resistance 4 Seat Position 6 Gym Equipment Shuttle Recovery Bilateral Squats Resistance 75# (two new) Therapeutic Exercises Supine Exercises Piriformis Stretch Supine Exercise Name Knee to opposite shoulder, Figure-4 Sitting Exercises Piriformis Sitting Exercise Name Seated Figure-4 Other Exercises Stairs Other Exercise Name Step-down Equipment Used 8 step PT-OP-T Assessment and Plan Start: 02/17/23 15:29 Freq: Status: Active Protocol: Document 04/01/23 10:30 DCW (Rec: 04/01/23 11:14 DC [id number]) Physical Therapy Assessment Goals Three Impairment Pt currently scores 18.86 on the TUG Short Term Goal (STG) Pt to improve TUG score to <10 without an assistive device in order to demonstrate a decreased risk in falls. STG Duration Met (6.7) Two Impairment Significantly limited left knee ROM (supine 16?-82?) Enterprise Systems Administrator Goal (LTG) Pt to improve supine left knee ROM to 0?-120? in order to fully return to prior level of unassisted functional mobility to increase level of independence. LTG Duration 04/19/23 One Impairment Pt unable to tolerate a full six minute walk test Mcc Goal (LTG) Pt to demonstrate ability to complete a full 6 MWT without rest, while ambulating at least 900' without an assistive device in order to demonstrate improved activity tolerance. LTG Duration Met (1166') Assessment Summary Assessment Showing great improvement in ROM, flexion to 118?, extension measured at 5?. Trial of piriformis stretching due to pt's complaints of seeming nerve pain down entire leg. Given HO for HEP. Pt has largely met all goals, is appropriate for discharge at this time. Physical Therapy Plan Frequency and Duration Frequency of Treatment 2x/Week Plan of Care Start Date 02/17/23 Plan of Care End Date 04/19/23 Therapeutic Interventions Therapeutic Interventions Gait Training,Home Exercise Program,Joint Mobilizations, Manual Therapy,Neuromuscular Re-education,Patient/Caregiver Education,Self-Care/Home Management,Soft Tissue Mobilization,Therapeutic Activities,Therapeutic Exercises Modalities Cold Pack/Ice Massage,Electric Stimulation,Hot Packs, Ultrasound Discharge Physical Therapy Discharge Reasons Goals Met
== END 2023-04-08 12:32 | disposition home or self-care (01) ==
LOC: PHYS 10:30
PROVIDERS: Family Provider Family Medicine; PCP Family Medicine; Referring Provider Orthopaedic Surgery; Visit Provider Orthopaedic Surgery
DX: M25.662 Stiffness of left knee, not elsewhere classified (principal); Z96.652 Presence of left artificial knee joint; R26.89 Other abnormalities of gait and mobility; M25.562 Pain in left knee; Z47.1 Aftercare following joint replacement surgery
CPT/HCPCS: 97110; 97112; 97140; 97161

== ENCOUNTER 2023-08-12 10:30 | Outpatient (RCR) | payer MEDICARE, BC, SELFPAY ==
--- NOTE | 2023-07-11 18:32 | PT.OIE ---
Current Diagnoses Presence of left artificial knee joint (07/11/23) Other specified postprocedural states (07/11/23) Past Medical History (Last Updated 01/16/23 @ 09:50 by Thiago Polo MD) Benign essential HTN Carpal tunnel syndrome (~1993) Chicken pox Chronic back pain (~1995) Chronic cough DVT (deep venous thrombosis) (~2019) Fatigue Frequent headaches Hearing loss (~1983) Hot flash, menopausal Insomnia Measles Mumps Palpitations Restless legs syndrome (RLS) Past Surgical History (Last Updated 04/15/22 @ 22:02 by Melissa Marie) Anesthesia History of carpal tunnel release (~1996) History of discectomy (~1999) History of knee replacement (~2017) Status post hysterectomy (~1993) Visit Care Team Role Provider Type Shital Houston DO Family Provider Physician Primary Care Provider Specialty: Family Practice Address: [address] [place] [address] [address], [place], [address] Email: [email or web address] Manas Caal PA-C Attending Provider Non-Staff Referring Provider Specialty: Medical Address: [address] [place] [address], [address], [place], [facility] Email: Physical Therapy Initial Evaluation PT-OP-A Visit Information Start: 07/10/23 15:41 Freq: Status: Active Protocol: Document 07/11/23 13:52 NM (Rec: 07/11/23 18:32 NM [id number]) Out-Patient Physical Therapy Visit Information Visit Information Visit Type Initial Evaluation Visit Note KX after 19 visits Visit Start Time 13:50 Visit Stop Time 14:30 Visit Number 1 Evaluation Information Evaluation Date 07/11/23 PT-OP-B Current Condition Start: 07/10/23 15:41 Freq: Status: Active Protocol: Document 07/11/23 13:52 NM (Rec: 07/11/23 18:32 NM [id number]) Current Condition History of Current Condition Onset Date April 2023 Current Complaints pain History of Current Condition Pt presents with L knee pain without known CHRISTOPHER. Recently finished PT for L knee TKA from February 2023. Beginning at [place], pt reports increased clicking at L knee with flex/ext. States she feels like it's catching or popping. This has been worsening over several months. Pain/clicking is worse with going down stairs, flexion. She visited her surgeon Dr. Obrien about 1.5 months ago , reporting that he thinks it' s scar tissue. She has attempted stretching, squatting, soft tissue mobilization to address issue without success. Reports soreness along lateral quad, above patella; none under her scar. Pt states that this doesn't restrict her from doing any mobility except stairs (has 2 flights at home) . Prior Treatments and Tests Previous PT for L TKA February 2023, R TKA 6 years ago without complication. Current Functional Impairments (Reported) Functional Limitations- Mobility/Gait Pain with stairs, knee flexion PT-OP-C Subjective Start: 07/10/23 15:41 Freq: Status: Active Protocol: Document 07/11/23 13:52 NM (Rec: 07/11/23 18:32 NM [id number]) OP-PT Subjective Patient Comments Patient Comments see hx above for pt report Patient Questionnaires Lower Extremity Functional Scale LEFS Score 73/80 OP-PT Pain Assessment Pain Assessment Grid Paper Pain Assessment Grid Completed Yes Location L knee Pain Location Details superolateral knee next to scar, lateral quad Intensity 4 Scale Used Numeric (0 - 10) Description Sharp Description- Other worst: 7 Frequency Occasional Pain Aggravating Factors Position,Activity,Exercise, Stair Climbing Other Pain Aggravating Factors Knee flexion Pain Alleviating Factors Rest PT-OP-D Balance Start: 07/10/23 15:41 Freq: Status: Active Protocol: Document 07/11/23 13:52 NM (Rec: 07/11/23 18:32 NM [id number]) Balance Tests Single Limb Standing Single Limb- Right 8 seconds Single Limb- Left 2 seconds PT-OP-E Functional Tests Start: 07/10/23 15:41 Freq: Status: Active Protocol: Document 07/11/23 13:52 NM (Rec: 07/11/23 18:32 NM [id number]) Functional Tests Five Times Sit to Stand Test Score 11 seconds Comments pain with knee flexion; demos valgus PT-OP-F Manual Assessment Start: 07/10/23 15:41 Freq: Status: Active Protocol: Document 07/11/23 13:52 NM (Rec: 07/11/23 18:32 NM [id number]) Manual Assessments Soft Tissue Assessment Soft Tissue Mobility Assessment Tenderness along L ITB, mostly at insertion. Decreased superior scar mobility, raised and purple. Logan test indicates quad tightness, not formally measured due to time Joint Mobility Assessment Joint Mobility Assessment No L knee instability or pain with testing. Demos lateral patellar tracking with knee flexion, occurs with clicking. Decreased medial patellar mobility PT-OP-G Mobility & Gait Start: 07/10/23 15:41 Freq: Status: Active Protocol: Document 07/11/23 13:52 NM (Rec: 07/11/23 18:32 NM [id number]) OP Gait Assessment Gait Gait Assistance Required: Independent Distance (Feet) 200 Assistive Devices Assistive Device None Gait Deviations General Gait Pattern Antalgic Factors Limiting Gait Function Factors Limiting Gait Function Decreased Activity Tolerance, Decreased Strength,Pain Stair Climbing Evaluation Evaluation Level of Assist On Stairs Independent Devices Stair Climbing Assistive Devices Right Railing Technique/Endurance Stair Climbing Direction Ascend and Descend Stair Climbing Technique Step Over Step Number of Steps Climbed 4 Stair Climbing Set # Repetitions (reps) 2 Comments Stair Climbing Comments Pain with eccentic step down, decreased knee flexion and demos knee valgus with trendelenburg pattern PT-OP-H Neuro Start: 07/10/23 15:41 Freq: Status: Active Protocol: Document 07/11/23 13:52 NM (Rec: 07/11/23 18:32 NM [id number]) Sensation Evaluation Comments Summary Comments BLE intact to light touch sensation, but decreased along L lateral leg near fibula. PT-OP-J Posture/Palpation/Skin Start: 07/10/23 15:41 Freq: Status: Active Protocol: Document 07/11/23 13:52 NM (Rec: 07/11/23 18:32 NM [id number]) Posture Evaluation Position Standing Head/C-Spine Posture Forward Head T-Spine Posture Increased Kyphosis L-Spine Posture Increased Lordosis Pelvis Posture Anteriorly Tilted Weight Distribution Balanced Hip Posture (L) Externally Rotated,(R) Externally Rotated Knee Posture (L) Genu Valgus,(R) Genu Valgus Patellar Posture (L) Superior,(R) Superior,(L) Laterally Tilted Ankle/Foot Posture (L) Pronated,(R) Pronated Palpation Assessment Location L knee Palpation Location IT band, scar, femoral/tibial condyles, joint line, patella Palpation Findings Tenderness Palpation Details Tenderness along lateral quad near femoral condyle, IT band insertions. No tenderness of patella but lateral tracking. Reproducible clicking during knee flexion lateral to scar Skin Assessment Incisional Assessment Incision Appearance/Comments superior incision raised and appears purple compared to lower portion of incision. Intact PT-OP-K Range of Motion Start: 07/10/23 15:41 Freq: Status: Active Protocol: Document 07/11/23 13:52 NM (Rec: 07/11/23 18:32 NM [id number]) Hip Goniometric Range of Motion Hip Right Flexion w/Knee Flexed 100 Internal Rotation 26 External Rotation 32 Left Flexion w/Knee Flexed 95 Internal Rotation 28 External Rotation 30 Knee Goniometric Range of Motion Knee Right Flexion Active (degrees) 127 Extension Active (degrees) 0 Left Flexion Active (degrees) 118 Extension Active (degrees) 3 PT-OP-M Strength Start: 07/10/23 15:41 Freq: Status: Active Protocol: Document 07/11/23 13:52 NM (Rec: 07/11/23 18:32 NM [id number]) Hip Strength Hip Manual Muscle Testing Right Flexion (L2) 4 Good Extension (S1) 4 Good Abduction 4 Good Adduction 4 Good External Rotation 4 Good Internal Rotation 4 Good Left Flexion (L2) 4 Good Extension (S1) 4 Good Abduction 4 Good Adduction 4 Good External Rotation 4 Good Internal Rotation 4 Good Knee Strength Knee Manual Muscle Testing Right Flexion (S2) 4 Good Extension (L3) 4 Good Left Flexion (S2) 4 Good Extension (L3) 4 Good Comments No pain with resisted motions PT-OP-T Assessment and Plan Start: 07/10/23 15:41 Freq: Status: Active Protocol: Document 07/11/23 13:52 NM (Rec: 07/11/23 18:32 NM [id number]) Physical Therapy Assessment Rehab Potential Rehabilitation Potential Good Evaluation Complexity Number of Personal Factors/Comorbidities 1-2 Number of Body Systems Impaired 1-2 Clinical Presentation at Evaluation Stable Impairments Impairments Activity Tolerance,Balance, Coordination,Functional Activities,Functional Mobility ,Gait,Integument,Pain,Posture, ROM,Sensation,Soft Tissue Mobility,Strength Goals Five Impairment HEP Short Term Goal (STG) Pt will report compliance with HEP at least 3x/wk to maximize gains made during PT sessions STG Duration 3 weeks [employer] Goal (LTG) Pt will report compliance with HEP at least 3x/wk for maintenance program with independent exercise after discharge from PT LTG Duration 6 weeks Four Impairment 4/5 MMT L hip abd and ext, quad strength [employer] Goal (LTG) Pt will improve L hip abduction, extension, and quad strength to at least 4+/5 in order to demonstrate increased strength required for ADLs, stairs, and gait LTG Duration 6 weeks Three Impairment L knee flexion 118 deg Short Term Goal (STG) Pt will increase L knee flexion to at least 120 deg for improved ability to descend stairs and perform ADLs STG Duration 3 weeks [employer] Goal (LTG) Pt will increase L knee flexion to at least 125 deg for improved ability to descend stairs and perform ADLs LTG Duration 6 weeks Two Impairment pain with stairs Nursing Home Goal (LTG) Pt will be able to perform at least 12 stairs without L knee pain in order to demonstrate improved knee flexion AROM and strength LTG Duration 6 weeks One Impairment pain with squats Short Term Goal (STG) Pt will be able to perform at least 10 bilateral squats with L knee pain <4/10 or compensation in order to demonstrate improved activity tolerance STG Duration 3 weeks Nursing Home Goal (LTG) Pt will be able to perform at least 10 bilateral squats without knee pain or compensation in order to demonstrate improved activity tolerance LTG Duration 6 weeks Assessment Summary Assessment Pt is a 73 y.o. female presenting with L knee pain beginning in April 2023. She is s/p L TKA from February 2023. Pt recently received PT for L TKA from February to March 2023. Pain is worse with active knee flexion, squatting, and descending down stairs. She also has palpable clicking over the lateral quad with knee flexion. Pt has lateral patellar tracking, which likely influences pain. Her L TKA incision is raised at/above the patella. Pt demos decreased L knee flexion AROM . Bilateral hip and knee strength is comparable, 4/5. However, pt demos compensations during squatting , stairs, and gait, which indicate glute/quad weakness and poor L knee mobility. Pt would benefit from skilled PT for L hip and knee strengthening for improved stability and L knee flexion mobility in order to decrease pain symptoms and improve activity tolerance with mobility. Physical Therapy Plan Frequency and Duration Frequency of Treatment 2x/Week Duration of treatment (weeks) 6 Plan of Care Start Date 07/11/23 Therapeutic Interventions Therapeutic Interventions Aquatic Therapy,Balance Training,Coordination Training ,Gait Training,Home Exercise Program,Joint Mobilizations, Manual Therapy,Neuromuscular Re-education,Orthotic/ Prosthetic Management,Patient/ Caregiver Education,Self-Care/ Home Management,Sensory Integration,Soft Tissue Mobilization,Taping, Therapeutic Activities, Therapeutic Exercises Modalities Biofeedback,Cold Pack/Ice Massage,Electric Stimulation, Hot Packs,Ultrasound, Vasopneumatic Devices Next Visit Focus/Plan Next Note Type Treatment Note Next Visit Plan Knee flexion mobilization, stretches. Hip abduction, extension, quad strengthening
--- NOTE | 2023-07-11 18:32 | PT.OPPOC ---
Physical, Occupational & Speech Therapy At [facility] Current Diagnoses Presence of left artificial knee joint (07/11/23) Other specified postprocedural states (07/11/23) Visit Care Team Role Provider Type Shital Houston DO Family Provider Physician Primary Care Provider Specialty: Family Practice Address: [address] [place] [address] [address], [address] Email: [email or web address] Manas Caal PA-C Attending Provider Non-Staff Referring Provider Specialty: Medical Address: [address] [place] [address], [address], [address] Email: Plan Of Care PT-OP-T Assessment and Plan Start: 07/10/23 15:41 Freq: Status: Active Protocol: Document 07/11/23 13:52 NM (Rec: 07/11/23 18:32 NM [id number]) Physical Therapy Assessment Rehab Potential Rehabilitation Potential Good Evaluation Complexity Number of Personal Factors/Comorbidities 1-2 Number of Body Systems Impaired 1-2 Clinical Presentation at Evaluation Stable Impairments Impairments Activity Tolerance,Balance, Coordination,Functional Activities,Functional Mobility ,Gait,Integument,Pain,Posture, ROM,Sensation,Soft Tissue Mobility,Strength Goals Five Impairment HEP Short Term Goal (STG) Pt will report compliance with HEP at least 3x/wk to maximize gains made during PT sessions STG Duration 3 weeks Snf Goal (LTG) Pt will report compliance with HEP at least 3x/wk for maintenance program with independent exercise after discharge from PT LTG Duration 6 weeks Four Impairment 4/5 MMT L hip abd and ext, quad strength Snf Goal (LTG) Pt will improve L hip abduction, extension, and quad strength to at least 4+/5 in order to demonstrate increased strength required for ADLs, stairs, and gait LTG Duration 6 weeks Three Impairment L knee flexion 118 deg Short Term Goal (STG) Pt will increase L knee flexion to at least 120 deg for improved ability to descend stairs and perform ADLs STG Duration 3 weeks Coal Bagger Goal (LTG) Pt will increase L knee flexion to at least 125 deg for improved ability to descend stairs and perform ADLs LTG Duration 6 weeks Two Impairment pain with stairs Coal Bagger Goal (LTG) Pt will be able to perform at least 12 stairs without L knee pain in order to demonstrate improved knee flexion AROM and strength LTG Duration 6 weeks One Impairment pain with squats Short Term Goal (STG) Pt will be able to perform at least 10 bilateral squats with L knee pain <4/10 or compensation in order to demonstrate improved activity tolerance STG Duration 3 weeks Coal Bagger Goal (LTG) Pt will be able to perform at least 10 bilateral squats without knee pain or compensation in order to demonstrate improved activity tolerance LTG Duration 6 weeks Assessment Summary Assessment Pt is a 73 y.o. female presenting with L knee pain beginning in April 2023. She is s/p L TKA from February 2023. Pt recently received PT for L TKA from February to March 2023. Pain is worse with active knee flexion, squatting, and descending down stairs. She also has palpable clicking over the lateral quad with knee flexion. Pt has lateral patellar tracking, which likely influences pain. Her L TKA incision is raised at/above the patella. Pt demos decreased L knee flexion AROM . Bilateral hip and knee strength is comparable, 4/5. However, pt demos compensations during squatting , stairs, and gait, which indicate glute/quad weakness and poor L knee mobility. Pt would benefit from skilled PT for L hip and knee strengthening for improved stability and L knee flexion mobility in order to decrease pain symptoms and improve activity tolerance with mobility. Physical Therapy Plan Frequency and Duration Frequency of Treatment 2x/Week Duration of treatment (weeks) 6 Plan of Care Start Date 07/11/23 Therapeutic Interventions Therapeutic Interventions Aquatic Therapy,Balance Training,Coordination Training ,Gait Training,Home Exercise Program,Joint Mobilizations, Manual Therapy,Neuromuscular Re-education,Orthotic/ Prosthetic Management,Patient/ Caregiver Education,Self-Care/ Home Management,Sensory Integration,Soft Tissue Mobilization,Taping, Therapeutic Activities, Therapeutic Exercises Modalities Biofeedback,Cold Pack/Ice Massage,Electric Stimulation, Hot Packs,Ultrasound, Vasopneumatic Devices Next Visit Focus/Plan Next Note Type Treatment Note Next Visit Plan Knee flexion mobilization, stretches. Hip abduction, extension, quad strengthening Plan of Care Dates Plan of Care Start Date 07/11/23 Electronically Signed by: Orquidea Espino, PT 07/11/23 5661 If you are in agreement with this Plan of Care, please return a signed and dated copy. I have reviewed this Plan of Care and certify that the skilled therapy services above are required to meet the patient?s needs. Physician Signature Date Printed Name and Credentials Clinical Instructor Signature Printed Name and Credentials
--- NOTE | 2023-07-14 15:15 | PT.OTN ---
Current Diagnoses Weakness (07/14/23) Presence of left artificial knee joint (07/14/23) Other specified postprocedural states (07/14/23) Physical Therapy Treatment Note PT-OP-A Visit Information Start: 07/10/23 15:41 Freq: Status: Active Protocol: Document 07/14/23 14:30 DCW (Rec: 07/14/23 15:14 DCW [id number]) Out-Patient Physical Therapy Visit Information Visit Information Visit Type Treatment Note Visit Note KX after 19 visits Visit Start Time 14:30 Visit Stop Time 15:15 Visit Number 2 Number of SCREEN OPERATOR Visits 0 Evaluation Information Evaluation Date 07/11/23 PT-OP-B Current Condition Start: 07/10/23 15:41 Freq: Status: Active Protocol: Document 07/11/23 13:52 NM (Rec: 07/11/23 18:32 NM [id number]) Current Condition History of Current Condition Onset Date April 2023 Current Complaints pain History of Current Condition Pt presents with L knee pain without known CHRISTOPHER. Recently finished PT for L knee TKA from February 2023. Beginning at [place], pt reports increased clicking at L knee with flex/ext. States she feels like it's catching or popping. This has been worsening over several months. Pain/clicking is worse with going down stairs, flexion. She visited her surgeon Dr. Obrien about 1.5 months ago , reporting that he thinks it' s scar tissue. She has attempted stretching, squatting, soft tissue mobilization to address issue without success. Reports soreness along lateral quad, above patella; none under her scar. Pt states that this doesn't restrict her from doing any mobility except stairs (has 2 flights at home) . Prior Treatments and Tests Previous PT for L TKA February 2023, R TKA 6 years ago without complication. Current Functional Impairments (Reported) Functional Limitations- Mobility/Gait Pain with stairs, knee flexion PT-OP-C Subjective Start: 07/10/23 15:41 Freq: Status: Active Protocol: Document 07/14/23 14:30 DCW (Rec: 07/14/23 15:14 DCW [id number]) OP-PT Subjective Patient Comments Patient Comments I can't say it's really painful, it's just irritating, and then it gets sore. That whole area aches then at night . PT-OP-D Balance Start: 07/10/23 15:41 Freq: Status: Active Protocol: Document 07/11/23 13:52 NM (Rec: 07/11/23 18:32 NM [id number]) Balance Tests Single Limb Standing Single Limb- Right 8 seconds Single Limb- Left 2 seconds PT-OP-E Functional Tests Start: 07/10/23 15:41 Freq: Status: Active Protocol: Document 07/11/23 13:52 NM (Rec: 07/11/23 18:32 NM [id number]) Functional Tests Five Times Sit to Stand Test Score 11 seconds Comments pain with knee flexion; demos valgus PT-OP-F Manual Assessment Start: 07/10/23 15:41 Freq: Status: Active Protocol: Document 07/11/23 13:52 NM (Rec: 07/11/23 18:32 NM [id number]) Manual Assessments Soft Tissue Assessment Soft Tissue Mobility Assessment Tenderness along L ITB, mostly at insertion. Decreased superior scar mobility, raised and purple. Logan test indicates quad tightness, not formally measured due to time Joint Mobility Assessment Joint Mobility Assessment No L knee instability or pain with testing. Demos lateral patellar tracking with knee flexion, occurs with clicking. Decreased medial patellar mobility PT-OP-G Mobility & Gait Start: 07/10/23 15:41 Freq: Status: Active Protocol: Document 07/11/23 13:52 NM (Rec: 07/11/23 18:32 NM [id number]) OP Gait Assessment Gait Gait Assistance Required: Independent Distance (Feet) 200 Assistive Devices Assistive Device None Gait Deviations General Gait Pattern Antalgic Factors Limiting Gait Function Factors Limiting Gait Function Decreased Activity Tolerance, Decreased Strength,Pain Stair Climbing Evaluation Evaluation Level of Assist On Stairs Independent Devices Stair Climbing Assistive Devices Right Railing Technique/Endurance Stair Climbing Direction Ascend and Descend Stair Climbing Technique Step Over Step Number of Steps Climbed 4 Stair Climbing Set # Repetitions (reps) 2 Comments Stair Climbing Comments Pain with eccentic step down, decreased knee flexion and demos knee valgus with trendelenburg pattern PT-OP-H Neuro Start: 07/10/23 15:41 Freq: Status: Active Protocol: Document 07/11/23 13:52 NM (Rec: 07/11/23 18:32 NM [id number]) Sensation Evaluation Comments Summary Comments BLE intact to light touch sensation, but decreased along L lateral leg near fibula. PT-OP-J Posture/Palpation/Skin Start: 07/10/23 15:41 Freq: Status: Active Protocol: Document 07/11/23 13:52 NM (Rec: 07/11/23 18:32 NM [id number]) Posture Evaluation Position Standing Head/C-Spine Posture Forward Head T-Spine Posture Increased Kyphosis L-Spine Posture Increased Lordosis Pelvis Posture Anteriorly Tilted Weight Distribution Balanced Hip Posture (L) Externally Rotated,(R) Externally Rotated Knee Posture (L) Genu Valgus,(R) Genu Valgus Patellar Posture (L) Superior,(R) Superior,(L) Laterally Tilted Ankle/Foot Posture (L) Pronated,(R) Pronated Palpation Assessment Location L knee Palpation Location IT band, scar, femoral/tibial condyles, joint line, patella Palpation Findings Tenderness Palpation Details Tenderness along lateral quad near femoral condyle, IT band insertions. No tenderness of patella but lateral tracking. Reproducible clicking during knee flexion lateral to scar Skin Assessment Incisional Assessment Incision Appearance/Comments superior incision raised and appears purple compared to lower portion of incision. Intact PT-OP-K Range of Motion Start: 07/10/23 15:41 Freq: Status: Active Protocol: Document 07/11/23 13:52 NM (Rec: 07/11/23 18:32 NM [id number]) Hip Goniometric Range of Motion Hip Right Flexion w/Knee Flexed 100 Internal Rotation 26 External Rotation 32 Left Flexion w/Knee Flexed 95 Internal Rotation 28 External Rotation 30 Knee Goniometric Range of Motion Knee Right Flexion Active (degrees) 127 Extension Active (degrees) 0 Left Flexion Active (degrees) 118 Extension Active (degrees) 3 PT-OP-M Strength Start: 07/10/23 15:41 Freq: Status: Active Protocol: Document 07/11/23 13:52 NM (Rec: 07/11/23 18:32 NM [id number]) Hip Strength Hip Manual Muscle Testing Right Flexion (L2) 4 Good Extension (S1) 4 Good Abduction 4 Good Adduction 4 Good External Rotation 4 Good Internal Rotation 4 Good Left Flexion (L2) 4 Good Extension (S1) 4 Good Abduction 4 Good Adduction 4 Good External Rotation 4 Good Internal Rotation 4 Good Knee Strength Knee Manual Muscle Testing Right Flexion (S2) 4 Good Extension (L3) 4 Good Left Flexion (S2) 4 Good Extension (L3) 4 Good Comments No pain with resisted motions PT-OP-Q Treatments Start: 07/10/23 15:41 Freq: Status: Active Protocol: Document 07/14/23 14:30 DCW (Rec: 07/14/23 15:14 DCW [id number]) Cardio Equipment Recumbent Bicycle Duration (Minutes) 5 Resistance 3 Seat Position 5 Therapeutic Exercises Supine Exercises Bridging Supine Exercise Name Bridging /c adductor ball squeeze SLR Supine Exercise Name SLR /c ER Side left Other Exercises Wall Squat Other Exercise Name Wall squat /c add ball squeeze Manual Therapy Treatment Soft Tissue Mobilization Scar mobs Body Location L knee Intensity/Depth Moderate Body Position Hooklying Comments Scar tissue mobilization Taping Medial Patella Body Location L Medial patella pull Type of Tape Kinesio Tape PT-OP-T Assessment and Plan Start: 07/10/23 15:41 Freq: Status: Active Protocol: Document 07/14/23 14:30 DCW (Rec: 07/14/23 15:14 DCW [id number]) Physical Therapy Assessment Impairments Impairments Activity Tolerance,Balance, Coordination,Functional Activities,Functional Mobility ,Gait,Integument,Pain,Posture, ROM,Sensation,Soft Tissue Mobility,Strength Goals Five Impairment HEP Short Term Goal (STG) Pt will report compliance with HEP at least 3x/wk to maximize gains made during PT sessions STG Duration 3 weeks Fpc Goal (LTG) Pt will report compliance with HEP at least 3x/wk for maintenance program with independent exercise after discharge from PT LTG Duration 6 weeks Four Impairment 4/5 MMT L hip abd and ext, quad strength Reordering Clerk Goal (LTG) Pt will improve L hip abduction, extension, and quad strength to at least 4+/5 in order to demonstrate increased strength required for ADLs, stairs, and gait LTG Duration 6 weeks Three Impairment L knee flexion 118 deg Short Term Goal (STG) Pt will increase L knee flexion to at least 120 deg for improved ability to descend stairs and perform ADLs STG Duration 3 weeks Reordering Clerk Goal (LTG) Pt will increase L knee flexion to at least 125 deg for improved ability to descend stairs and perform ADLs LTG Duration 6 weeks Two Impairment pain with stairs Reordering Clerk Goal (LTG) Pt will be able to perform at least 12 stairs without L knee pain in order to demonstrate improved knee flexion AROM and strength LTG Duration 6 weeks One Impairment pain with squats Short Term Goal (STG) Pt will be able to perform at least 10 bilateral squats with L knee pain <4/10 or compensation in order to demonstrate improved activity tolerance STG Duration 3 weeks Fpc Goal (LTG) Pt will be able to perform at least 10 bilateral squats without knee pain or compensation in order to demonstrate improved activity tolerance LTG Duration 6 weeks Assessment Summary Assessment Pt noted decrease in discomfort and clicking with trial of k-tape. Continue to focus on VMO strengthening and knee ROM. Physical Therapy Plan Frequency and Duration Frequency of Treatment 2x/Week Duration of treatment (weeks) 6 Plan of Care Start Date 07/11/23 Therapeutic Interventions Therapeutic Interventions Aquatic Therapy,Balance Training,Coordination Training ,Gait Training,Home Exercise Program,Joint Mobilizations, Manual Therapy,Neuromuscular Re-education,Orthotic/ Prosthetic Management,Patient/ Caregiver Education,Self-Care/ Home Management,Sensory Integration,Soft Tissue Mobilization,Taping, Therapeutic Activities, Therapeutic Exercises Modalities Biofeedback,Cold Pack/Ice Massage,Electric Stimulation, Hot Packs,Ultrasound, Vasopneumatic Devices Next Visit Focus/Plan Next Note Type Treatment Note Next Visit Plan Knee flexion mobilization, stretches. Hip abduction, extension, quad strengthening
--- NOTE | 2023-07-17 16:45 | PT.OTN ---
Current Diagnoses Weakness (07/17/23) Presence of left artificial knee joint (07/17/23) Other specified postprocedural states (07/17/23) Physical Therapy Treatment Note PT-OP-A Visit Information Start: 07/10/23 15:41 Freq: Status: Active Protocol: Document 07/17/23 13:46 SW (Rec: 07/17/23 14:36 SW [id number]) Out-Patient Physical Therapy Visit Information Visit Information Visit Type Treatment Note Visit Note KX after 19 visits Visit Start Time 13:46 Visit Stop Time 14:25 Visit Number 3 Number of SANDING MACHINE TENDER AUTOMATIC Visits 1 PT-OP-B Current Condition Start: 07/10/23 15:41 Freq: Status: Active Protocol: Document 07/11/23 13:52 NM (Rec: 07/11/23 18:32 NM [id number]) Current Condition History of Current Condition Onset Date April 2023 Current Complaints pain History of Current Condition Pt presents with L knee pain without known CHRISTOPHER. Recently finished PT for L knee TKA from February 2023. Beginning at [place], pt reports increased clicking at L knee with flex/ext. States she feels like it's catching or popping. This has been worsening over several months. Pain/clicking is worse with going down stairs, flexion. She visited her surgeon Dr. Obrien about 1.5 months ago , reporting that he thinks it' s scar tissue. She has attempted stretching, squatting, soft tissue mobilization to address issue without success. Reports soreness along lateral quad, above patella; none under her scar. Pt states that this doesn't restrict her from doing any mobility except stairs (has 2 flights at home) . Prior Treatments and Tests Previous PT for L TKA February 2023, R TKA 6 years ago without complication. Current Functional Impairments (Reported) Functional Limitations- Mobility/Gait Pain with stairs, knee flexion PT-OP-C Subjective Start: 07/10/23 15:41 Freq: Status: Active Protocol: Document 07/17/23 13:46 SW (Rec: 07/17/23 14:36 SW [id number]) OP-PT Subjective Patient Comments Patient Comments Pt reports feels tape did help . PT-OP-D Balance Start: 07/10/23 15:41 Freq: Status: Active Protocol: Document 07/11/23 13:52 NM (Rec: 07/11/23 18:32 NM [id number]) Balance Tests Single Limb Standing Single Limb- Right 8 seconds Single Limb- Left 2 seconds PT-OP-E Functional Tests Start: 07/10/23 15:41 Freq: Status: Active Protocol: Document 07/11/23 13:52 NM (Rec: 07/11/23 18:32 NM [id number]) Functional Tests Five Times Sit to Stand Test Score 11 seconds Comments pain with knee flexion; demos valgus PT-OP-F Manual Assessment Start: 07/10/23 15:41 Freq: Status: Active Protocol: Document 07/11/23 13:52 NM (Rec: 07/11/23 18:32 NM [id number]) Manual Assessments Soft Tissue Assessment Soft Tissue Mobility Assessment Tenderness along L ITB, mostly at insertion. Decreased superior scar mobility, raised and purple. Logan test indicates quad tightness, not formally measured due to time Joint Mobility Assessment Joint Mobility Assessment No L knee instability or pain with testing. Demos lateral patellar tracking with knee flexion, occurs with clicking. Decreased medial patellar mobility PT-OP-G Mobility & Gait Start: 07/10/23 15:41 Freq: Status: Active Protocol: Document 07/11/23 13:52 NM (Rec: 07/11/23 18:32 NM [id number]) OP Gait Assessment Gait Gait Assistance Required: Independent Distance (Feet) 200 Assistive Devices Assistive Device None Gait Deviations General Gait Pattern Antalgic Factors Limiting Gait Function Factors Limiting Gait Function Decreased Activity Tolerance, Decreased Strength,Pain Stair Climbing Evaluation Evaluation Level of Assist On Stairs Independent Devices Stair Climbing Assistive Devices Right Railing Technique/Endurance Stair Climbing Direction Ascend and Descend Stair Climbing Technique Step Over Step Number of Steps Climbed 4 Stair Climbing Set # Repetitions (reps) 2 Comments Stair Climbing Comments Pain with eccentic step down, decreased knee flexion and demos knee valgus with trendelenburg pattern PT-OP-H Neuro Start: 07/10/23 15:41 Freq: Status: Active Protocol: Document 07/11/23 13:52 NM (Rec: 07/11/23 18:32 NM [id number]) Sensation Evaluation Comments Summary Comments BLE intact to light touch sensation, but decreased along L lateral leg near fibula. PT-OP-J Posture/Palpation/Skin Start: 07/10/23 15:41 Freq: Status: Active Protocol: Document 07/11/23 13:52 NM (Rec: 07/11/23 18:32 NM [id number]) Posture Evaluation Position Standing Head/C-Spine Posture Forward Head T-Spine Posture Increased Kyphosis L-Spine Posture Increased Lordosis Pelvis Posture Anteriorly Tilted Weight Distribution Balanced Hip Posture (L) Externally Rotated,(R) Externally Rotated Knee Posture (L) Genu Valgus,(R) Genu Valgus Patellar Posture (L) Superior,(R) Superior,(L) Laterally Tilted Ankle/Foot Posture (L) Pronated,(R) Pronated Palpation Assessment Location L knee Palpation Location IT band, scar, femoral/tibial condyles, joint line, patella Palpation Findings Tenderness Palpation Details Tenderness along lateral quad near femoral condyle, IT band insertions. No tenderness of patella but lateral tracking. Reproducible clicking during knee flexion lateral to scar Skin Assessment Incisional Assessment Incision Appearance/Comments superior incision raised and appears purple compared to lower portion of incision. Intact PT-OP-K Range of Motion Start: 07/10/23 15:41 Freq: Status: Active Protocol: Document 07/11/23 13:52 NM (Rec: 07/11/23 18:32 NM [id number]) Hip Goniometric Range of Motion Hip Right Flexion w/Knee Flexed 100 Internal Rotation 26 External Rotation 32 Left Flexion w/Knee Flexed 95 Internal Rotation 28 External Rotation 30 Knee Goniometric Range of Motion Knee Right Flexion Active (degrees) 127 Extension Active (degrees) 0 Left Flexion Active (degrees) 118 Extension Active (degrees) 3 PT-OP-M Strength Start: 07/10/23 15:41 Freq: Status: Active Protocol: Document 07/11/23 13:52 NM (Rec: 07/11/23 18:32 NM [id number]) Hip Strength Hip Manual Muscle Testing Right Flexion (L2) 4 Good Extension (S1) 4 Good Abduction 4 Good Adduction 4 Good External Rotation 4 Good Internal Rotation 4 Good Left Flexion (L2) 4 Good Extension (S1) 4 Good Abduction 4 Good Adduction 4 Good External Rotation 4 Good Internal Rotation 4 Good Knee Strength Knee Manual Muscle Testing Right Flexion (S2) 4 Good Extension (L3) 4 Good Left Flexion (S2) 4 Good Extension (L3) 4 Good Comments No pain with resisted motions PT-OP-Q Treatments Start: 07/10/23 15:41 Freq: Status: Active Protocol: Document 07/17/23 13:46 SW (Rec: 07/17/23 14:36 SW [id number]) Cardio Equipment Recumbent Bicycle Duration (Minutes) 5 Resistance 3 Seat Position 5 Therapeutic Exercises Supine Exercises Bridging Supine Exercise Name Bridging /c adductor ball squeeze SLR Supine Exercise Name SLR /c ER Side left Standing Exercises Knee flexion Standing Exercise Name Knee flexion stretch Equipment Used @ stair Reps/Minutes 3 x 30 Other Exercises Squats Other Exercise Name squats at mat table (issued HEP) Equipment Used ball squeeze (green) Reps/Minutes 3 x 10 Wall Squat Other Exercise Name Wall squat /c add ball squeeze Manual Therapy Treatment Soft Tissue Mobilization Scar mobs Body Location L knee Intensity/Depth Moderate Body Position Hooklying Comments Scar tissue mobilization, AP w /adhesions PT-OP-T Assessment and Plan Start: 07/10/23 15:41 Freq: Status: Active Protocol: Document 07/17/23 13:46 SW (Rec: 07/17/23 14:36 [id number]) Physical Therapy Assessment Goals Five Impairment HEP Short Term Goal (STG) Pt will report compliance with HEP at least 3x/wk to maximize gains made during PT sessions STG Duration 3 weeks Mcfp Goal (LTG) Pt will report compliance with HEP at least 3x/wk for maintenance program with independent exercise after discharge from PT LTG Duration 6 weeks Four Impairment 4/5 MMT L hip abd and ext, quad strength Relationship Mgr Goal (LTG) Pt will improve L hip abduction, extension, and quad strength to at least 4+/5 in order to demonstrate increased strength required for ADLs, stairs, and gait LTG Duration 6 weeks Three Impairment L knee flexion 118 deg Short Term Goal (STG) Pt will increase L knee flexion to at least 120 deg for improved ability to descend stairs and perform ADLs STG Duration 3 weeks Mcfp Goal (LTG) Pt will increase L knee flexion to at least 125 deg for improved ability to descend stairs and perform ADLs LTG Duration 6 weeks Two Impairment pain with stairs Mcfp Goal (LTG) Pt will be able to perform at least 12 stairs without L knee pain in order to demonstrate improved knee flexion AROM and strength LTG Duration 6 weeks One Impairment pain with squats Short Term Goal (STG) Pt will be able to perform at least 10 bilateral squats with L knee pain <4/10 or compensation in order to demonstrate improved activity tolerance STG Duration 3 weeks Relationship Mgr Goal (LTG) Pt will be able to perform at least 10 bilateral squats without knee pain or compensation in order to demonstrate improved activity tolerance LTG Duration 6 weeks Assessment Summary Assessment Manual therapy for scar mobilization this session, with AP to assist with restrictions. Pt has sensitivity to palpation on Left knee ~1 lateral to superior part of scar with manual therapy. Pt reported increased pain with wall squats this session, instructed pt in chair squats w/ ball between knees, no palpable clicking during chair squats, good feedback with no clicking post exercise. Initiated knee flex stretch at stair, initial pain present, corrected pt alignment with stretch pt reported no more pain, instructed pt not to push into pain, and ensure correct alignment, added to HEP. Pt declined K tape this session, pt is going to monitor symptoms and may want to trial K tape again next session. Physical Therapy Plan Frequency and Duration Frequency of Treatment 2x/Week Duration of treatment (weeks) 6 Plan of Care Start Date 07/11/23 Therapeutic Interventions Therapeutic Interventions Aquatic Therapy,Balance Training,Coordination Training ,Gait Training,Home Exercise Program,Joint Mobilizations, Manual Therapy,Neuromuscular Re-education,Orthotic/ Prosthetic Management,Patient/ Caregiver Education,Self-Care/ Home Management,Sensory Integration,Soft Tissue Mobilization,Taping, Therapeutic Activities, Therapeutic Exercises Modalities Biofeedback,Cold Pack/Ice Massage,Electric Stimulation, Hot Packs,Ultrasound, Vasopneumatic Devices Next Visit Focus/Plan Next Note Type Treatment Note Next Visit Plan Knee flexion mobilization, stretches. Hip abduction, extension, quad strengthening
--- NOTE | 2023-07-24 16:43 | PT.OTN ---
Current Diagnoses Weakness (07/24/23) Presence of left artificial knee joint (07/24/23) Other specified postprocedural states (07/24/23) Physical Therapy Treatment Note PT-OP-A Visit Information Start: 07/10/23 15:41 Freq: Status: Active Protocol: Document 07/24/23 13:45 SW (Rec: 07/24/23 14:34 SW [id number]) Out-Patient Physical Therapy Visit Information Visit Information Visit Type Treatment Note Visit Note KX after 19 visits Visit Start Time 13:45 Visit Stop Time 14:25 Visit Number 4 Number of PRODUCT CONTROLLER Visits 2 PT-OP-B Current Condition Start: 07/10/23 15:41 Freq: Status: Active Protocol: Document 07/11/23 13:52 NM (Rec: 07/11/23 18:32 NM [id number]) Current Condition History of Current Condition Onset Date April 2023 Current Complaints pain History of Current Condition Pt presents with L knee pain without known CHRISTOPHER. Recently finished PT for L knee TKA from February 2023. Beginning at [place], pt reports increased clicking at L knee with flex/ext. States she feels like it's catching or popping. This has been worsening over several months. Pain/clicking is worse with going down stairs, flexion. She visited her surgeon Dr. Obrien about 1.5 months ago , reporting that he thinks it' s scar tissue. She has attempted stretching, squatting, soft tissue mobilization to address issue without success. Reports soreness along lateral quad, above patella; none under her scar. Pt states that this doesn't restrict her from doing any mobility except stairs (has 2 flights at home) . Prior Treatments and Tests Previous PT for L TKA February 2023, R TKA 6 years ago without complication. Current Functional Impairments (Reported) Functional Limitations- Mobility/Gait Pain with stairs, knee flexion PT-OP-C Subjective Start: 07/10/23 15:41 Freq: Status: Active Protocol: Document 07/24/23 13:45 SW (Rec: 07/24/23 14:34 SW [id number]) OP-PT Subjective Patient Comments Patient Comments Pt reports doing a lot this week, has not done much of exercises but has done a lot of other activity. Pain 2/10. PT-OP-D Balance Start: 03/07/24 15:41 Freq: Status: Active Protocol: Document 07/11/23 13:52 NM (Rec: 07/11/23 18:32 NM [id number]) Balance Tests Single Limb Standing Single Limb- Right 8 seconds Single Limb- Left 2 seconds PT-OP-E Functional Tests Start: 07/10/23 15:41 Freq: Status: Active Protocol: Document 07/11/23 13:52 NM (Rec: 07/11/23 18:32 NM [id number]) Functional Tests Five Times Sit to Stand Test Score 11 seconds Comments pain with knee flexion; demos valgus PT-OP-F Manual Assessment Start: 07/10/23 15:41 Freq: Status: Active Protocol: Document 07/11/23 13:52 NM (Rec: 07/11/23 18:32 NM [id number]) Manual Assessments Soft Tissue Assessment Soft Tissue Mobility Assessment Tenderness along L ITB, mostly at insertion. Decreased superior scar mobility, raised and purple. Logan test indicates quad tightness, not formally measured due to time Joint Mobility Assessment Joint Mobility Assessment No L knee instability or pain with testing. Demos lateral patellar tracking with knee flexion, occurs with clicking. Decreased medial patellar mobility PT-OP-G Mobility & Gait Start: 07/10/23 15:41 Freq: Status: Active Protocol: Document 07/11/23 13:52 NM (Rec: 07/11/23 18:32 NM [id number]) OP Gait Assessment Gait Gait Assistance Required: Independent Distance (Feet) 200 Assistive Devices Assistive Device None Gait Deviations General Gait Pattern Antalgic Factors Limiting Gait Function Factors Limiting Gait Function Decreased Activity Tolerance, Decreased Strength,Pain Stair Climbing Evaluation Evaluation Level of Assist On Stairs Independent Devices Stair Climbing Assistive Devices Right Railing Technique/Endurance Stair Climbing Direction Ascend and Descend Stair Climbing Technique Step Over Step Number of Steps Climbed 4 Stair Climbing Set # Repetitions (reps) 2 Comments Stair Climbing Comments Pain with eccentic step down, decreased knee flexion and demos knee valgus with trendelenburg pattern PT-OP-H Neuro Start: 07/10/23 15:41 Freq: Status: Active Protocol: Document 07/11/23 13:52 NM (Rec: 07/11/23 18:32 NM [id number]) Sensation Evaluation Comments Summary Comments BLE intact to light touch sensation, but decreased along L lateral leg near fibula. PT-OP-J Posture/Palpation/Skin Start: 07/10/23 15:41 Freq: Status: Active Protocol: Document 07/11/23 13:52 NM (Rec: 07/11/23 18:32 NM [id number]) Posture Evaluation Position Standing Head/C-Spine Posture Forward Head T-Spine Posture Increased Kyphosis L-Spine Posture Increased Lordosis Pelvis Posture Anteriorly Tilted Weight Distribution Balanced Hip Posture (L) Externally Rotated,(R) Externally Rotated Knee Posture (L) Genu Valgus,(R) Genu Valgus Patellar Posture (L) Superior,(R) Superior,(L) Laterally Tilted Ankle/Foot Posture (L) Pronated,(R) Pronated Palpation Assessment Location L knee Palpation Location IT band, scar, femoral/tibial condyles, joint line, patella Palpation Findings Tenderness Palpation Details Tenderness along lateral quad near femoral condyle, IT band insertions. No tenderness of patella but lateral tracking. Reproducible clicking during knee flexion lateral to scar Skin Assessment Incisional Assessment Incision Appearance/Comments superior incision raised and appears purple compared to lower portion of incision. Intact PT-OP-K Range of Motion Start: 07/10/23 15:41 Freq: Status: Active Protocol: Document 07/11/23 13:52 NM (Rec: 07/11/23 18:32 NM [id number]) Hip Goniometric Range of Motion Hip Right Flexion w/Knee Flexed 100 Internal Rotation 26 External Rotation 32 Left Flexion w/Knee Flexed 95 Internal Rotation 28 External Rotation 30 Knee Goniometric Range of Motion Knee Right Flexion Active (degrees) 127 Extension Active (degrees) 0 Left Flexion Active (degrees) 118 Extension Active (degrees) 3 PT-OP-M Strength Start: 07/10/23 15:41 Freq: Status: Active Protocol: Document 07/11/23 13:52 NM (Rec: 07/11/23 18:32 NM [id number]) Hip Strength Hip Manual Muscle Testing Right Flexion (L2) 4 Good Extension (S1) 4 Good Abduction 4 Good Adduction 4 Good External Rotation 4 Good Internal Rotation 4 Good Left Flexion (L2) 4 Good Extension (S1) 4 Good Abduction 4 Good Adduction 4 Good External Rotation 4 Good Internal Rotation 4 Good Knee Strength Knee Manual Muscle Testing Right Flexion (S2) 4 Good Extension (L3) 4 Good Left Flexion (S2) 4 Good Extension (L3) 4 Good Comments No pain with resisted motions PT-OP-Q Treatments Start: 07/10/23 15:41 Freq: Status: Active Protocol: Document 07/24/23 13:45 SW (Rec: 07/24/23 14:34 SW [id number]) Gym Equipment Shuttle Recovery Bilateral Squats Resistance 50# (two new) Shuttle Recovery Platform Stable Therapeutic Exercises Supine Exercises LAQ Supine Exercise Name Issued HEP Resistance 4#>Green TB Reps/Minutes 2x10, x 3 w/ Green TB Sitting Exercises LAQ Equipment Used 4#>Green TB Standing Exercises heel/toe raises Standing Exercise Name heel/toe raises Hip Ext Standing Exercise Name Hip Ext (Issued HEP) Reps/Minutes 2x10 Comments cues for decreased anterior lean compensation Hip Abd Standing Exercise Name Hip Abd (Issued HEP) Reps/Minutes 2x10 Comments cues for decreased lateral lean compensation Knee flexion Standing Exercise Name Knee flexion stretch Equipment Used @ stair Reps/Minutes 3 x 30 Other Exercises Squats Other Exercise Name squats at mat table (Issued HEP) Equipment Used ball squeeze (green) Reps/Minutes 3 x 10 Neuro Re-Education Treatment Balance Activities SLS Details SLS Surface stable Equipment @ rail Reps/Duration 2' PT-OP-T Assessment and Plan Start: 07/10/23 15:41 Freq: Status: Active Protocol: Document 07/24/23 13:45 SW (Rec: 07/24/23 14:34 SW [id number]) Physical Therapy Assessment Goals Five Impairment HEP Short Term Goal (STG) Pt will report compliance with HEP at least 3x/wk to maximize gains made during PT sessions STG Duration 3 weeks Penitentiary Goal (LTG) Pt will report compliance with HEP at least 3x/wk for maintenance program with independent exercise after discharge from PT LTG Duration 6 weeks Four Impairment 4/5 MMT L hip abd and ext, quad strength Mill Manager Goal (LTG) Pt will improve L hip abduction, extension, and quad strength to at least 4+/5 in order to demonstrate increased strength required for ADLs, stairs, and gait LTG Duration 6 weeks Three Impairment L knee flexion 118 deg Short Term Goal (STG) Pt will increase L knee flexion to at least 120 deg for improved ability to descend stairs and perform ADLs STG Duration 3 weeks Penitentiary Goal (LTG) Pt will increase L knee flexion to at least 125 deg for improved ability to descend stairs and perform ADLs LTG Duration 6 weeks Two Impairment pain with stairs Penitentiary Goal (LTG) Pt will be able to perform at least 12 stairs without L knee pain in order to demonstrate improved knee flexion AROM and strength LTG Duration 6 weeks One Impairment pain with squats Short Term Goal (STG) Pt will be able to perform at least 10 bilateral squats with L knee pain <4/10 or compensation in order to demonstrate improved activity tolerance STG Duration 3 weeks Penitentiary Goal (LTG) Pt will be able to perform at least 10 bilateral squats without knee pain or compensation in order to demonstrate improved activity tolerance LTG Duration 6 weeks Assessment Summary Assessment Continued manual therapy for scar mobilization and to decrease adhesions and pain, pt reports mobilizing scar at home, palpable increase in mobility with less restriction today. Pt tolerated session well with no increase in pain. Issued HEP exercises for pt to carryover during week away from therapy. Physical Therapy Plan Frequency and Duration Frequency of Treatment 2x/Week Duration of treatment (weeks) 6 Plan of Care Start Date 07/11/23 Therapeutic Interventions Therapeutic Interventions Aquatic Therapy,Balance Training,Coordination Training ,Gait Training,Home Exercise Program,Joint Mobilizations, Manual Therapy,Neuromuscular Re-education,Orthotic/ Prosthetic Management,Patient/ Caregiver Education,Self-Care/ Home Management,Sensory Integration,Soft Tissue Mobilization,Taping, Therapeutic Activities, Therapeutic Exercises Modalities Biofeedback,Cold Pack/Ice Massage,Electric Stimulation, Hot Packs,Ultrasound, Vasopneumatic Devices Next Visit Focus/Plan Next Note Type Treatment Note Next Visit Plan Knee flexion mobilization, stretches. Hip abduction, extension, quad strengthening
--- NOTE | 2023-08-08 15:14 | PT.OTN ---
Current Diagnoses Weakness (08/08/23) Presence of left artificial knee joint (08/08/23) Other specified postprocedural states (08/08/23) Physical Therapy Treatment Note PT-OP-A Visit Information Start: 07/10/23 15:41 Freq: Status: Active Protocol: Document 08/08/23 14:30 DCW (Rec: 08/08/23 15:14 DCW [id number]) Out-Patient Physical Therapy Visit Information Visit Information Visit Type Treatment Note Visit Note KX after 19 visits Visit Start Time 14:30 Visit Stop Time 15:15 Visit Number 5 Number of RAILWAY SIGNAL TECHNICIAN Visits 0 PT-OP-B Current Condition Start: 07/10/23 15:41 Freq: Status: Active Protocol: Document 07/11/23 13:52 NM (Rec: 07/11/23 18:32 NM [id number]) Current Condition History of Current Condition Onset Date April 2023 Current Complaints pain History of Current Condition Pt presents with L knee pain without known CHRISTOPHER. Recently finished PT for L knee TKA from February 2023. Beginning at [place], pt reports increased clicking at L knee with flex/ext. States she feels like it's catching or popping. This has been worsening over several months. Pain/clicking is worse with going down stairs, flexion. She visited her surgeon Dr. Obrien about 1.5 months ago , reporting that he thinks it' s scar tissue. She has attempted stretching, squatting, soft tissue mobilization to address issue without success. Reports soreness along lateral quad, above patella; none under her scar. Pt states that this doesn't restrict her from doing any mobility except stairs (has 2 flights at home) . Prior Treatments and Tests Previous PT for L TKA February 2023, R TKA 6 years ago without complication. Current Functional Impairments (Reported) Functional Limitations- Mobility/Gait Pain with stairs, knee flexion PT-OP-C Subjective Start: 07/10/23 15:41 Freq: Status: Active Protocol: Document 08/08/23 14:30 DCW (Rec: 08/08/23 15:14 DCW [id number]) OP-PT Subjective Patient Comments Patient Comments It's going well, I'm not having the clicking going down stairs. The scar still feels a little limiting. PT-OP-D Balance Start: 07/10/23 15:41 Freq: Status: Active Protocol: Document 07/11/23 13:52 NM (Rec: 07/11/23 18:32 NM [id number]) Balance Tests Single Limb Standing Single Limb- Right 8 seconds Single Limb- Left 2 seconds PT-OP-E Functional Tests Start: 07/10/23 15:41 Freq: Status: Active Protocol: Document 07/11/23 13:52 NM (Rec: 07/11/23 18:32 NM [id number]) Functional Tests Five Times Sit to Stand Test Score 11 seconds Comments pain with knee flexion; demos valgus PT-OP-F Manual Assessment Start: 07/10/23 15:41 Freq: Status: Active Protocol: Document 07/11/23 13:52 NM (Rec: 07/11/23 18:32 NM [id number]) Manual Assessments Soft Tissue Assessment Soft Tissue Mobility Assessment Tenderness along L ITB, mostly at insertion. Decreased superior scar mobility, raised and purple. Logan test indicates quad tightness, not formally measured due to time Joint Mobility Assessment Joint Mobility Assessment No L knee instability or pain with testing. Demos lateral patellar tracking with knee flexion, occurs with clicking. Decreased medial patellar mobility PT-OP-G Mobility & Gait Start: 07/10/23 15:41 Freq: Status: Active Protocol: Document 07/11/23 13:52 NM (Rec: 07/11/23 18:32 NM [id number]) OP Gait Assessment Gait Gait Assistance Required: Independent Distance (Feet) 200 Assistive Devices Assistive Device None Gait Deviations General Gait Pattern Antalgic Factors Limiting Gait Function Factors Limiting Gait Function Decreased Activity Tolerance, Decreased Strength,Pain Stair Climbing Evaluation Evaluation Level of Assist On Stairs Independent Devices Stair Climbing Assistive Devices Right Railing Technique/Endurance Stair Climbing Direction Ascend and Descend Stair Climbing Technique Step Over Step Number of Steps Climbed 4 Stair Climbing Set # Repetitions (reps) 2 Comments Stair Climbing Comments Pain with eccentic step down, decreased knee flexion and demos knee valgus with trendelenburg pattern PT-OP-H Neuro Start: 07/10/23 15:41 Freq: Status: Active Protocol: Document 07/11/23 13:52 NM (Rec: 07/11/23 18:32 NM [id number]) Sensation Evaluation Comments Summary Comments BLE intact to light touch sensation, but decreased along L lateral leg near fibula. PT-OP-J Posture/Palpation/Skin Start: 07/10/23 15:41 Freq: Status: Active Protocol: Document 07/11/23 13:52 NM (Rec: 07/11/23 18:32 NM [id number]) Posture Evaluation Position Standing Head/C-Spine Posture Forward Head T-Spine Posture Increased Kyphosis L-Spine Posture Increased Lordosis Pelvis Posture Anteriorly Tilted Weight Distribution Balanced Hip Posture (L) Externally Rotated,(R) Externally Rotated Knee Posture (L) Genu Valgus,(R) Genu Valgus Patellar Posture (L) Superior,(R) Superior,(L) Laterally Tilted Ankle/Foot Posture (L) Pronated,(R) Pronated Palpation Assessment Location L knee Palpation Location IT band, scar, femoral/tibial condyles, joint line, patella Palpation Findings Tenderness Palpation Details Tenderness along lateral quad near femoral condyle, IT band insertions. No tenderness of patella but lateral tracking. Reproducible clicking during knee flexion lateral to scar Skin Assessment Incisional Assessment Incision Appearance/Comments superior incision raised and appears purple compared to lower portion of incision. Intact PT-OP-K Range of Motion Start: 07/10/23 15:41 Freq: Status: Active Protocol: Document 07/11/23 13:52 NM (Rec: 07/11/23 18:32 NM [id number]) Hip Goniometric Range of Motion Hip Right Flexion w/Knee Flexed 100 Internal Rotation 26 External Rotation 32 Left Flexion w/Knee Flexed 95 Internal Rotation 28 External Rotation 30 Knee Goniometric Range of Motion Knee Right Flexion Active (degrees) 127 Extension Active (degrees) 0 Left Flexion Active (degrees) 118 Extension Active (degrees) 3 PT-OP-M Strength Start: 07/10/23 15:41 Freq: Status: Active Protocol: Document 07/11/23 13:52 NM (Rec: 07/11/23 18:32 NM [id number]) Hip Strength Hip Manual Muscle Testing Right Flexion (L2) 4 Good Extension (S1) 4 Good Abduction 4 Good Adduction 4 Good External Rotation 4 Good Internal Rotation 4 Good Left Flexion (L2) 4 Good Extension (S1) 4 Good Abduction 4 Good Adduction 4 Good External Rotation 4 Good Internal Rotation 4 Good Knee Strength Knee Manual Muscle Testing Right Flexion (S2) 4 Good Extension (L3) 4 Good Left Flexion (S2) 4 Good Extension (L3) 4 Good Comments No pain with resisted motions PT-OP-Q Treatments Start: 07/10/23 15:41 Freq: Status: Active Protocol: Document 08/08/23 14:30 DCW (Rec: 08/08/23 15:14 DCW [id number]) Cardio Equipment Recumbent Bicycle Duration (Minutes) 6 Resistance 3 Seat Position 4 Gym Equipment Shuttle Recovery Bilateral Squats Resistance 75# (two new) Shuttle Recovery Platform Stable Shuttle Balance Red Details WBOS, Staggered Manual Therapy Treatment Soft Tissue Mobilization Scar mobs Body Location L knee Intensity/Depth Moderate Body Position Hooklying Comments Scar tissue mobilization PT-OP-T Assessment and Plan Start: 07/10/23 15:41 Freq: Status: Active Protocol: Document 08/08/23 14:30 DCW (Rec: 08/08/23 15:14 DCW [id number]) Physical Therapy Assessment Goals Five Impairment HEP Short Term Goal (STG) Pt will report compliance with HEP at least 3x/wk to maximize gains made during PT sessions STG Duration 3 weeks Music Professor Goal (LTG) Pt will report compliance with HEP at least 3x/wk for maintenance program with independent exercise after discharge from PT LTG Duration 6 weeks Four Impairment 4/5 MMT L hip abd and ext, quad strength Shelter Goal (LTG) Pt will improve L hip abduction, extension, and quad strength to at least 4+/5 in order to demonstrate increased strength required for ADLs, stairs, and gait LTG Duration 6 weeks Three Impairment L knee flexion 118 deg Short Term Goal (STG) Pt will increase L knee flexion to at least 120 deg for improved ability to descend stairs and perform ADLs STG Duration 3 weeks Shelter Goal (LTG) Pt will increase L knee flexion to at least 125 deg for improved ability to descend stairs and perform ADLs LTG Duration 6 weeks Two Impairment pain with stairs Music Professor Goal (LTG) Pt will be able to perform at least 12 stairs without L knee pain in order to demonstrate improved knee flexion AROM and strength LTG Duration 6 weeks One Impairment pain with squats Short Term Goal (STG) Pt will be able to perform at least 10 bilateral squats with L knee pain <4/10 or compensation in order to demonstrate improved activity tolerance STG Duration 3 weeks Music Professor Goal (LTG) Pt will be able to perform at least 10 bilateral squats without knee pain or compensation in order to demonstrate improved activity tolerance LTG Duration 6 weeks Assessment Summary Assessment Pt showing very good progress, most original complaints completely eliminated, still feels occasionally pain/ tightness along scar, but doing well with self-mobs. Will likely d/c following appointments next week. Physical Therapy Plan Frequency and Duration Frequency of Treatment 2x/Week Duration of treatment (weeks) 6 Plan of Care Start Date 07/11/23 Therapeutic Interventions Therapeutic Interventions Aquatic Therapy,Balance Training,Coordination Training ,Gait Training,Home Exercise Program,Joint Mobilizations, Manual Therapy,Neuromuscular Re-education,Orthotic/ Prosthetic Management,Patient/ Caregiver Education,Self-Care/ Home Management,Sensory Integration,Soft Tissue Mobilization,Taping, Therapeutic Activities, Therapeutic Exercises Modalities Biofeedback,Cold Pack/Ice Massage,Electric Stimulation, Hot Packs,Ultrasound, Vasopneumatic Devices Next Visit Focus/Plan Next Note Type Treatment Note Next Visit Plan Knee flexion mobilization, stretches. Hip abduction, extension, quad strengthening
--- NOTE | 2023-08-12 11:07 | PT.OTN ---
Current Diagnoses Weakness (08/12/23) Presence of left artificial knee joint (08/12/23) Other specified postprocedural states (08/12/23) Physical Therapy Treatment Note PT-OP-A Visit Information Start: 07/10/23 15:41 Freq: Status: Active Protocol: Document 08/12/23 10:30 DCW (Rec: 08/12/23 11:07 DCW [id number]) Out-Patient Physical Therapy Visit Information Visit Information Visit Type Discharge Summary Visit Start Time 10:30 Visit Stop Time 11:02 Visit Number 6 Number of CHAIN PERSON Visits 0 Evaluation Information Evaluation Date 07/11/23 PT-OP-B Current Condition Start: 07/10/23 15:41 Freq: Status: Active Protocol: Document 07/11/23 13:52 NM (Rec: 07/11/23 18:32 NM [id number]) Current Condition History of Current Condition Onset Date April 2023 Current Complaints pain History of Current Condition Pt presents with L knee pain without known CHRISTOPHER. Recently finished PT for L knee TKA from February 2023. Beginning at [facility], pt reports increased clicking at L knee with flex/ext. States she feels like it's catching or popping. This has been worsening over several months. Pain/clicking is worse with going down stairs, flexion. She visited her surgeon Dr. Obrien about 1.5 months ago , reporting that he thinks it' s scar tissue. She has attempted stretching, squatting, soft tissue mobilization to address issue without success. Reports soreness along lateral quad, above patella; none under her scar. Pt states that this doesn't restrict her from doing any mobility except stairs (has 2 flights at home) . Prior Treatments and Tests Previous PT for L TKA February 2023, R TKA 6 years ago without complication. Current Functional Impairments (Reported) Functional Limitations- Mobility/Gait Pain with stairs, knee flexion PT-OP-C Subjective Start: 07/10/23 15:41 Freq: Status: Active Protocol: Document 08/12/23 10:30 DCW (Rec: 08/12/23 11:07 DCW [id number]) OP-PT Subjective Patient Comments Patient Comments Still better-viaks. PT-OP-D Balance Start: 07/10/23 15:41 Freq: Status: Active Protocol: Document 07/11/23 13:52 NM (Rec: 07/11/23 18:32 NM [id number]) Balance Tests Single Limb Standing Single Limb- Right 8 seconds Single Limb- Left 2 seconds PT-OP-E Functional Tests Start: 07/10/23 15:41 Freq: Status: Active Protocol: Document 07/11/23 13:52 NM (Rec: 07/11/23 18:32 NM [id number]) Functional Tests Five Times Sit to Stand Test Score 11 seconds Comments pain with knee flexion; demos valgus PT-OP-F Manual Assessment Start: 07/10/23 15:41 Freq: Status: Active Protocol: Document 07/11/23 13:52 NM (Rec: 07/11/23 18:32 NM [id number]) Manual Assessments Soft Tissue Assessment Soft Tissue Mobility Assessment Tenderness along L ITB, mostly at insertion. Decreased superior scar mobility, raised and purple. Logan test indicates quad tightness, not formally measured due to time Joint Mobility Assessment Joint Mobility Assessment No L knee instability or pain with testing. Demos lateral patellar tracking with knee flexion, occurs with clicking. Decreased medial patellar mobility PT-OP-G Mobility & Gait Start: 07/10/23 15:41 Freq: Status: Active Protocol: Document 07/11/23 13:52 NM (Rec: 07/11/23 18:32 NM [id number]) OP Gait Assessment Gait Gait Assistance Required: Independent Distance (Feet) 200 Assistive Devices Assistive Device None Gait Deviations General Gait Pattern Antalgic Factors Limiting Gait Function Factors Limiting Gait Function Decreased Activity Tolerance, Decreased Strength,Pain Stair Climbing Evaluation Evaluation Level of Assist On Stairs Independent Devices Stair Climbing Assistive Devices Right Railing Technique/Endurance Stair Climbing Direction Ascend and Descend Stair Climbing Technique Step Over Step Number of Steps Climbed 4 Stair Climbing Set # Repetitions (reps) 2 Comments Stair Climbing Comments Pain with eccentic step down, decreased knee flexion and demos knee valgus with trendelenburg pattern PT-OP-H Neuro Start: 07/10/23 15:41 Freq: Status: Active Protocol: Document 07/11/23 13:52 NM (Rec: 07/11/23 18:32 NM [id number]) Sensation Evaluation Comments Summary Comments BLE intact to light touch sensation, but decreased along L lateral leg near fibula. PT-OP-J Posture/Palpation/Skin Start: 07/10/23 15:41 Freq: Status: Active Protocol: Document 07/11/23 13:52 NM (Rec: 07/11/23 18:32 NM [id number]) Posture Evaluation Position Standing Head/C-Spine Posture Forward Head T-Spine Posture Increased Kyphosis L-Spine Posture Increased Lordosis Pelvis Posture Anteriorly Tilted Weight Distribution Balanced Hip Posture (L) Externally Rotated,(R) Externally Rotated Knee Posture (L) Genu Valgus,(R) Genu Valgus Patellar Posture (L) Superior,(R) Superior,(L) Laterally Tilted Ankle/Foot Posture (L) Pronated,(R) Pronated Palpation Assessment Location L knee Palpation Location IT band, scar, femoral/tibial condyles, joint line, patella Palpation Findings Tenderness Palpation Details Tenderness along lateral quad near femoral condyle, IT band insertions. No tenderness of patella but lateral tracking. Reproducible clicking during knee flexion lateral to scar Skin Assessment Incisional Assessment Incision Appearance/Comments superior incision raised and appears purple compared to lower portion of incision. Intact PT-OP-K Range of Motion Start: 07/10/23 15:41 Freq: Status: Active Protocol: Document 07/11/23 13:52 NM (Rec: 07/11/23 18:32 NM [id number]) Hip Goniometric Range of Motion Hip Right Flexion w/Knee Flexed 100 Internal Rotation 26 External Rotation 32 Left Flexion w/Knee Flexed 95 Internal Rotation 28 External Rotation 30 Knee Goniometric Range of Motion Knee Right Flexion Active (degrees) 127 Extension Active (degrees) 0 Left Flexion Active (degrees) 118 Extension Active (degrees) 3 PT-OP-M Strength Start: 07/10/23 15:41 Freq: Status: Active Protocol: Document 07/11/23 13:52 NM (Rec: 07/11/23 18:32 NM [id number]) Hip Strength Hip Manual Muscle Testing Right Flexion (L2) 4 Good Extension (S1) 4 Good Abduction 4 Good Adduction 4 Good External Rotation 4 Good Internal Rotation 4 Good Left Flexion (L2) 4 Good Extension (S1) 4 Good Abduction 4 Good Adduction 4 Good External Rotation 4 Good Internal Rotation 4 Good Knee Strength Knee Manual Muscle Testing Right Flexion (S2) 4 Good Extension (L3) 4 Good Left Flexion (S2) 4 Good Extension (L3) 4 Good Comments No pain with resisted motions PT-OP-Q Treatments Start: 07/10/23 15:41 Freq: Status: Active Protocol: Document 08/12/23 10:30 DCW (Rec: 08/12/23 11:07 DCW [id number]) Cardio Equipment Recumbent Bicycle Duration (Minutes) 6 Resistance 3 Seat Position 4 Gym Equipment Shuttle Recovery Bilateral Squats Resistance 87# (three new) Shuttle Recovery Platform Stable Therapeutic Exercises Other Exercises Step-up Other Exercise Name Step-up Side bilateral Equipment Used 8 step Manual Therapy Treatment Soft Tissue Mobilization Scar mobs Body Location L knee Intensity/Depth Moderate Body Position Hooklying Comments Scar tissue mobilization Neuro Re-Education Treatment Balance Activities Lunge Details BOSU Lunge PT-OP-T Assessment and Plan Start: 07/10/23 15:41 Freq: Status: Active Protocol: Document 08/12/23 10:30 DCW (Rec: 08/12/23 11:07 DCW [id number]) Physical Therapy Assessment Goals Five Impairment HEP Short Term Goal (STG) Pt will report compliance with HEP at least 3x/wk to maximize gains made during PT sessions STG Duration Met Assisted Goal (LTG) Pt will report compliance with HEP at least 3x/wk for maintenance program with independent exercise after discharge from PT LTG Duration 6 weeks Four Impairment 4/5 MMT L hip abd and ext, quad strength Assisted Goal (LTG) Pt will improve L hip abduction, extension, and quad strength to at least 4+/5 in order to demonstrate increased strength required for ADLs, stairs, and gait LTG Duration 6 weeks Three Impairment L knee flexion 118 deg Short Term Goal (STG) Pt will increase L knee flexion to at least 120 deg for improved ability to descend stairs and perform ADLs STG Duration Met Assisted Goal (LTG) Pt will increase L knee flexion to at least 125 deg for improved ability to descend stairs and perform ADLs LTG Duration 6 weeks Two Impairment pain with stairs Shelter Advocate Goal (LTG) Pt will be able to perform at least 12 stairs without L knee pain in order to demonstrate improved knee flexion AROM and strength LTG Duration Met One Impairment pain with squats Short Term Goal (STG) Pt will be able to perform at least 10 bilateral squats with L knee pain <4/10 or compensation in order to demonstrate improved activity tolerance STG Duration Met Shelter Advocate Goal (LTG) Pt will be able to perform at least 10 bilateral squats without knee pain or compensation in order to demonstrate improved activity tolerance LTG Duration 6 weeks Progress Towards Goals Progress Towards Goals Progressing Toward Goals Assessment Summary Assessment Pt has done well progressing toward all goals, no longer experiencing any pain or popping with stairs, happy with current function. Pt notes she will be compliant with HEP going forward, and is ready for discharge at this time. Physical Therapy Plan Frequency and Duration Frequency of Treatment 2x/Week Duration of treatment (weeks) 6 Plan of Care Start Date 07/11/23 Therapeutic Interventions Therapeutic Interventions Aquatic Therapy,Balance Training,Coordination Training ,Gait Training,Home Exercise Program,Joint Mobilizations, Manual Therapy,Neuromuscular Re-education,Orthotic/ Prosthetic Management,Patient/ Caregiver Education,Self-Care/ Home Management,Sensory Integration,Soft Tissue Mobilization,Taping, Therapeutic Activities, Therapeutic Exercises Modalities Biofeedback,Cold Pack/Ice Massage,Electric Stimulation, Hot Packs,Ultrasound, Vasopneumatic Devices Discharge Physical Therapy Discharge Reasons Patient Request Next Visit Focus/Plan Next Note Type Discharge Summary
== END 2023-08-22 13:49 | disposition home or self-care (01) ==
LOC: PHYS 10:30
PROVIDERS: Family Provider Family Medicine; PCP Family Medicine; Referring Provider Physician Assistant Medical; Visit Provider Physician Assistant Medical
DX: Z96.652 Presence of left artificial knee joint (principal); Z98.890 Other specified postprocedural states; R53.1 Weakness
CPT/HCPCS: 97110; 97140; 97161

== ENCOUNTER → 2023-10-28 12:08 | Outpatient (CLI) | payer MEDICARE, BC, SELFPAY ==
[2023-10-28 13:13] LABS: Hemoglobin A1C% w Est Avg Glu 5.1 % (4.0-6.0)
[2023-10-28 13:21] LABS: BUN Creatinine Ratio 22.5 (6-22); Blood Urea Nitrogen 16 mg/dL (7-17); Calcium 9.1 mg/dL (8.4-10.2); Carbon Dioxide 31 mmol/L (22-32); Chloride 106 mmol/L (98-107); Estimated Glomerular Filt Rate > 60 mL/min (>60); Glucose 92 mg/dL (80-110); HEMOLYSIS < 15 (0-50); Potassium 4.2 mmol/L (3.4-5.1); Sodium 140 mmol/L (137-145)
== END ==
PROVIDERS: Family Provider Family Medicine; PCP Family Medicine; Referring Provider Family Medicine; Visit Provider Family Medicine
DX: Z00.00 Encounter for general adult medical examination without abnormal findings (principal); R73.01 Impaired fasting glucose; I10 Essential (primary) hypertension
CPT/HCPCS: 36415; 80048; 83036

== ENCOUNTER → 2024-02-18 09:24 | Outpatient (CLI) | payer MEDICARE, BC, SELFPAY ==
--- NOTE | 2024-02-18 09:27 | DI.RAD.S_ITS ---
PROCEDURE: XR LUMBAR SPINE 2-3V INDICATIONS: kiw back pain TECHNIQUE: 3 views of the lumbar spine were acquired. COMPARISON: [facility], MR, MR LUMBAR SPINE WO CON, 10/07/2017, 11:33. FINDINGS: Bones: 5 [id number] vertebrae are present. Anterolisthesis of L4 on L5 measuring 0.9 cm, appears increased. Anterolisthesis of L5 on S1 measuring 0.5 cm. L5 laminectomy. Small vertebral body osteophytes. No vertebral body compression fractures. No suspicious bony lesions. Soft tissues: Overlying bowel gas pattern is normal. No suspicious soft tissue calcifications. IMPRESSION: Grade 1 anterolisthesis of L4 on L5 and L5 on S1. Appears worsened at L4-L5 compared to 2018. Dictated by: Pradeep Guillen M.D. on 02/19/2024 at 10:25 Approved by: Pradeep Guillen M.D. on 02/19/2024 at 10:28
== END ==
LOC: RAD 09:26
PROVIDERS: Family Provider Family Medicine; PCP Family Medicine; Referring Provider Family Medicine; Visit Provider Family Medicine
DX: S39.012A Strain of muscle, fascia and tendon of lower back, initial encounter (principal); M43.16 Spondylolisthesis, lumbar region; M43.17 Spondylolisthesis, lumbosacral region; X58.XXXA Exposure to other specified factors, initial encounter
CPT/HCPCS: 72100

== ENCOUNTER → 2024-03-05 14:58 | Outpatient (CLI) | payer MEDICARE, BC, SELFPAY ==
--- NOTE | 2024-03-05 14:59 | DI.MRI.S_ITS ---
PROCEDURE: MR LUMBAR SPINE WO CON INDICATIONS: low back pain TECHNIQUE: Noncontrast sagittal T1 spin echo and T2 fast echo, sagittal STIR, and T2 fast spin echo through the lumbar spine. In cases with scoliosis, additional coronal T2 fast spin echo may be performed. COMPARISON: [facility], MR, L-SPINE W&WO CONTRAST, 02/23/2016, 10:18. [facility], MR, MR LUMBAR SPINE WO CON, 10/07/2017, 11:33. [facility], CR, XR LUMBAR SPINE 2-3V, 02/18/2024, 9:29. FINDINGS: Image quality: Excellent. Alignment and Curvature: There is minimal retrolisthesis seen at L2-L3. Grade 1 anterolisthesis is seen at L4-L5 and L5-S1. The degree anterolisthesis at L4-L5 is mildly progressed compared to 2018. Bone Marrow: Marrow is of normal overall signal. No acute vertebral body compression fractures. Spinal Cord: Conus medullaris terminates at the L1 level. Visualized cord demonstrates normal signal and size. Paraspinous Soft Tissues: No paravertebral masses. T12-L1: Normal appearance. L1-L2: No significant neural foraminal or central canal narrowing can be seen. L2-L3: The disc height is well-preserved. Loss of disc signal is seen at this level. Moderate disc bulge is seen, which is eccentric to the right. Mild facet joint hypertrophy is seen. There is moderate right-sided and mild left-sided neural foraminal narrowing. Minimal central canal narrowing is seen. These imaging findings have progressed compared to the prior study. L3-L4: The disc height is well-preserved. Loss of disc signal is seen at this level. Moderate generalized disc bulge is seen. There is a superimposed central disc protrusion. At least moderate facet hypertrophy is seen. There is at least moderate right-sided and moderate left-sided neural foraminal narrowing. Moderate central canal narrowing is seen. These imaging findings have progressed compared to the prior study. L4-L5: The disc height is well-preserved. Loss of disc signal is seen at this level. Moderate disc bulge is seen, with a central disc protrusion/uncovering. Prominent facet hypertrophy is seen. There is at least moderate right-sided and moderate to severe left-sided neural foraminal narrowing. There is a degree of compression seen upon the exiting nerve roots. At least moderate central canal narrowing is seen at this level. These imaging findings have progressed compared to the prior study. L5-S1: Moderate loss of disc height is seen. Loss of disc signal is seen. Reactive marrow endplate changes are seen, which are hyperintense on T1-weighted and T2-weighted imaging and most consistent with fatty metaplasia (Modic type II changes). Moderate disc bulge is seen, with a central/right disc protrusion. There is at least moderate facet hypertrophy seen. Portions of the posterior elements have been previously removed at this level. At least moderate facet hypertrophy is seen. There is at least moderate bilateral neural foraminal narrowing seen. There is a degree of compression seen upon the exiting nerve roots. Minimal central canal narrowing is seen. There is mild progression of degenerative change compared to 2018. IMPRESSION: Multiple levels of significant lumbar spine degenerative change can be seen, which are mildly progressed compared to 2018. Dictated by: David Sorensen M.D. on 03/05/2024 at 15:10 Approved by: David Sorensen M.D. on 03/05/2024 at 15:15
== END ==
PROVIDERS: Family Provider Family Medicine; PCP Family Medicine; Referring Provider Family Medicine; Visit Provider Family Medicine
DX: S39.012A Strain of muscle, fascia and tendon of lower back, initial encounter (principal); M47.816 Spondylosis without myelopathy or radiculopathy, lumbar region; M47.817 Spondylosis without myelopathy or radiculopathy, lumbosacral region; X58.XXXA Exposure to other specified factors, initial encounter
CPT/HCPCS: 72148

== ENCOUNTER 2024-05-19 14:30 | Outpatient (RCR) | payer MEDICARE, BC, SELFPAY ==
--- NOTE | 2024-03-18 16:45 | PT.OIE ---
Current Diagnoses Radiculopathy, lumbosacral region (03/18/24) Low back pain, unspecified (03/18/24) Weakness (03/18/24) Past Medical History (Last Updated 10/28/23 @ 12:02 by Shital Houston DO) Benign essential HTN Carpal tunnel syndrome (~1993) Chicken pox Chronic back pain (~1995) Chronic cough DVT (deep venous thrombosis) (~2019) Encounter for subsequent annual wellness visit (AWV) in Medicare patient Fatigue Frequent headaches Hearing loss (~1983) Hot flash, menopausal IFG (impaired fasting glucose) Insomnia Measles Mumps Palpitations Restless legs syndrome (RLS) Past Surgical History (Last Updated 04/15/22 @ 22:02 by Melissa Marie) Anesthesia History of carpal tunnel release (~1996) History of discectomy (~1999) History of knee replacement (~2017) Status post hysterectomy (~1993) Visit Care Team Role Provider Type Shital Houston DO Attending Provider Physician Family Provider Primary Care Provider Referring Provider Specialty: [facility] Practice Address: [address] [place] [address], [address], [facility] Email: [email or web address] Physical Therapy Initial Evaluation PT-OP-A Visit Information Start: 03/18/24 09:02 Freq: Status: Active Protocol: Document 03/18/24 09:02 [facility] (Rec: 03/18/24 09:55 [facility] [id number]) Out-Patient Physical Therapy Visit Information Visit Information Visit Type Initial Evaluation Visit Start Time 09:00 Visit Stop Time 09:47 Visit Number 1 Evaluation Information Evaluation Date 03/18/24 Precautions Precautions PMH: john TKA, john carpal tunnel PT-OP-B Current Condition Start: 03/18/24 09:02 Freq: Status: Active Protocol: Document 03/18/24 09:02 SAK (Rec: 03/18/24 09:55 SAK [id number]) Current Condition History of Current Condition Onset Date January 2024 Current Complaints severe LBP with radicular symptoms john LE's History of Current Condition Was on recumbant bike had never used arm component of machine, next morning couldn't stand up fully when got out of bed. Hasn't gotten any better. Went to urgent care, tried Ibuprofen, no change. Saw Dr. Umaña: x-ray negative . After another week MRI. Got appointment at spine for Apr 07. Long history of back pain ever since her 50's. Had discectomy 2016 L45. Has had a couple cortisone shots prior to that surgery, 1 in 2018. 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 Currently difficulty sleeping; and horrendous to get up out of bed. Pain sharp at times, radiates posteriorly and laterally down legs. No usual exercise except bike and walking but not able to do either of those currently. States she is frustrated by lack of activity tolerance as she wants to be able to exercise and lose weight. Prior Treatments and Tests injections, heat, ice, stretching, medication; Ibuprofen and Tylenol. Prior TKA with PT. MRI 03/06/24 showed multiple levels of significant lumbar spine degenerative change mildly progressed compared to 2018. 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 sell 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 as she has to do setup which involves carrying and setting up tables, carrying boxes and supplies Functional Limitations- Other poor sleep, unable to stand fully upright PT-OP-C Subjective Start: 03/18/24 09:02 Freq: Status: Active Protocol: Document 03/18/24 09:02 [facility] (Rec: 03/18/24 16:42 [facility] [id number]) Patient Questionnaires Oswestry Low Back Index Oswestry Score 50 OP-PT Pain Assessment Pain Assessment Grid Paper Pain Assessment Grid Completed Yes Location john lumbar spine, posterior and lat LE's Intensity 7 Scale Used Numeric (0 - 10) Description Aching,Sharp,Shooting,Stabbing Frequency Frequent Pain Aggravating Factors Changing Position,ADL's, Activity,Exercise,Walking, Lifting Pain Alleviating Factors None Home Pain Medication Use Pain Medications Used Yes: Tylenol and Ibuprofen, doesn't help Pain Behaviors Pain Behaviors Facial Grimacing,Wincing PT-OP-G Mobility & Gait Start: 03/18/24 09:02 Freq: Status: Active Protocol: Document 03/18/24 09:02 [facility] (Rec: 03/18/24 16:42 [facility] [id number]) OP Mobility Evaluation Bed Mobility Rolling painful Supine to and from Sit painful Transfers Sit to Stand painful OP Gait Assessment Gait Gait Assistance Required: Independent Assistive Devices Assistive Device None Gait Deviations General Gait Pattern Decreased Stride Length, Decreased Feet Clearance Factors Limiting Gait Function Factors Limiting Gait Function Pain PT-OP-H Neuro Start: 03/18/24 09:02 Freq: Status: Active Protocol: Document 03/18/24 09:02 [facility] (Rec: 03/18/24 16:42 [facility] [id number]) Sensation Evaluation Gross Sensation Gross Sensation WNL PT-OP-J Posture/Palpation/Skin Start: 03/18/24 09:02 Freq: Status: Active Protocol: Document 03/18/24 09:02 [facility] (Rec: 03/18/24 16:42 [facility] [id number]) Posture Evaluation Position Standing Head/C-Spine Posture Forward Head T-Spine Posture Increased Kyphosis L-Spine Posture Increased Lordosis Shoulder Posture (L) Rounded,(R) Rounded Pelvis Posture Anteriorly Tilted Weight Distribution Balanced Palpation Assessment Location john lumbar paraspinals, SI Palpation Findings Soft Tissue Tightness, Tenderness PT-OP-K Range of Motion Start: 03/18/24 09:02 Freq: Status: Active Protocol: Document 03/18/24 09:02 [facility] (Rec: 03/18/24 16:42 [facility] [id number]) Lumbar Spine Range of Motion Lumbar Spine Active Flexion 60 Extension 0 Rotation Left 20 Rotation Right 20 Lateral Flexion Left 35 Lateral Flexion Right 30 ROM Limitations Pain Hip Goniometric Range of Motion Hip john Flexion w/Knee Flexed 110 Straight Leg Raise 60 Extension 0 Abduction 30 Internal Rotation 15 External Rotation 45 Hip ROM Limitations Hip ROM Limitations Soft Tissue Tightness,Pain PT-OP-L Special Tests Start: 03/18/24 09:02 Freq: Status: Active Protocol: Document 03/18/24 09:02 [facility] (Rec: 03/18/24 16:42 [facility] [id number]) Special Tests Lumbar Spine Special Tests Straight Leg Raise Test Results - Slump Test Results - Compression Test Results - PT-OP-M Strength Start: 03/18/24 09:02 Freq: Status: Active Protocol: Document 03/18/24 09:02 [facility] (Rec: 03/18/24 16:42 [facility] [id number]) Trunk Strength Trunk Manual Muscle Testing Flexion 2+ Poor+ Extension 2+ Poor+ Core Stabilization poor Hip Strength Hip Manual Muscle Testing john Flexion (L2) 4 Good Extension (S1) 3- Fair- Abduction 3+ Fair+ External Rotation 3+ Fair+ Internal Rotation 4 Good Comments painful and poor core stab PT-OP-Q Treatments Start: 03/18/24 09:02 Freq: Status: Active Protocol: Document 03/18/24 09:02 SAK (Rec: 03/18/24 16:42 [facility] [id number]) Self-Care/Home Management Treatment Education Patient Education Home Exercise Program,Pain Management,Posture Other Education issued written HEP HO Activities Self-Care/Home Management Activities use of ice and heat, can alternate PT-OP-R Modalities Start: 03/18/24 09:02 Freq: Status: Active Protocol: Document 03/18/24 09:02 [facility] (Rec: 03/18/24 16:42 [facility] [id number]) Hot Pack/Cold Pack Treatment Cold Pack Location lumbosacral spine Patient Position Sitting PT-OP-T Assessment and Plan Start: 03/18/24 09:02 Freq: Status: Active Protocol: Document 03/18/24 09:02 [facility] (Rec: 03/18/24 16:42 [facility] [id number]) Physical Therapy Assessment Rehab Potential Rehabilitation Potential Good Evaluation Complexity Number of Personal Factors/Comorbidities 1-2 Number of Body Systems Impaired 3 Clinical Presentation at Evaluation Evolving Impairments Impairments Activity Tolerance,Pain,ROM, Soft Tissue Mobility,Strength Other Concerns Barriers to Rehabilitation chronicity of lumbar pain Goals Three Impairment core stabilization and strength impairments core and LE's Short Term Goal (STG) Patient to be instructed in HEP for purposes of core and hip strengthening and stabilization to support therapy activities STG Duration 05/01/24 National Sales Consultant Goal (LTG) Patient to be indepednent and compliant with HEP and demonstrate improvement of strength to at least 4+/5 and demonstrate appropriate core stabilization with usual activities LTG Duration 06/18/24 Two Impairment Oswestry disability index score 50% Short Term Goal (STG) Decrease Oswestry to no greater than 30% as measure of improved activity tolerance and function STG Duration 05/01/24 National Sales Consultant Goal (LTG) Decrease Oswestry to no greater than 20% as measure of improved activity tolerance and function LTG Duration 06/18/24 One Impairment severe LBP as high as 7/10, interrupts sleep Short Term Goal (STG) Decrease pain to no greater than 4/10 with all usual activities with improved sleep STG Duration 05/01/24 National Sales Consultant Goal (LTG) Decrease patient pain to no greater than 2/10 with all usual activities and able to return to normal sleep ability including ability to roll over in bed without pain. LTG Duration 06/18/24 Assessment Summary Assessment Patient presents to PT with function-limiting lumbar and SI pain with radicular symptoms. She has significant findings by x-ray and MRI including facet and central canal narrowing. She denies bowel and bladder symptoms or giving way of legs. She has long history of lumbar pain and has had prior laminectomy and injections but reports had been doing well until she used the UE component of an exercise bike at home. States she woke up following day in severe pain and it has persisted with no improvement despite over the counter medications, ice, heat, rest. Her signs and symptoms are consistent with stenosis with nerve root compression. She has core and hip muscle weakness and poor core stabilization, tight iliopsoas john right greater than left. Knees and ankles strong. No numbness or tingling. FEel she may benefit from PT for modalities and manual therapy to decrease her pain and therapeutic exercise for core stabilization and strengthening. POC was discussed and patient was in agreement. Physical Therapy Plan Frequency and Duration Frequency of Treatment 2x/Week Duration of treatment (weeks) 12 Plan of Care Start Date 03/18/24 Plan of Care End Date 06/18/24 Therapeutic Interventions Therapeutic Interventions Home Exercise Program,Manual Therapy,Neuromuscular Re- education,Patient/Caregiver Education,Self-Care/Home Management,Soft Tissue Mobilization,Taping Modalities Cold Pack/Ice Massage,Electric Stimulation,Hot Packs, Infrared Therapy,Traction- Mechanical,Ultrasound Next Visit Focus/Plan Next Note Type Treatment Note Next Visit Plan Review HEP, work on automatic core engagement, strengthening . Update HEP as indicated. Provide soft tissue mobilization and consider IFES for decreased muscle tension and pain.
--- NOTE | 2024-03-26 12:34 | PT.OTN ---
Current Diagnoses Radiculopathy, lumbosacral region (03/26/24) Low back pain, unspecified (03/26/24) Weakness (03/26/24) Physical Therapy Treatment Note PT-OP-A Visit Information Start: 03/18/24 09:02 Freq: Status: Active Protocol: Document 03/26/24 11:41 NBM (Rec: 03/26/24 12:34 NBM [id number]) Out-Patient Physical Therapy Visit Information Visit Information Visit Type Initial Evaluation Visit Start Time 11:38 Visit Stop Time 12:22 Visit Number 2 Number of MANAGER NET Visits 1 PT-OP-B Current Condition Start: 03/18/24 09:02 Freq: Status: Active Protocol: Document 03/18/24 09:02 SAK (Rec: 03/18/24 09:55 SAK [id number]) Current Condition History of Current Condition Onset Date January 2024 Current Complaints severe LBP with radicular symptoms john LE's History of Current Condition Was on recumbant bike had never used arm component of machine, next morning couldn't stand up fully when got out of bed. Hasn't gotten any better. Went to urgent care, tried Ibuprofen, no change. Saw Dr. Umaña: x-ray negative . After another week MRI. Got appointment at spine for Apr 07. Long history of back pain ever since her 50's. Had discectomy 2016 L45. Has had a couple cortisone shots prior to that surgery, 1 in 2017. 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 Currently difficulty sleeping; and horrendous to get up out of bed. Pain sharp at times, radiates posteriorly and laterally down legs. No usual exercise except bike and walking but not able to do either of those currently. States she is frustrated by lack of activity tolerance as she wants to be able to exercise and lose weight. Prior Treatments and Tests injections, heat, ice, stretching, medication; Ibuprofen and Tylenol. Prior TKA with PT. MRI 03/06/24 showed multiple levels of significant lumbar spine degenerative change mildly progressed compared to 2018. 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 Her pain is currently 3/10 in low back and down the leg. The hip flexor stretch is painful. I've been living on ibuprofen. Sleep is excruciating; getting in and out of bed is the worst, then pain in the morning gets better throughout the day until back in bed. Patient Reported Progress Improving PT-OP-G Mobility & Gait Start: 03/18/24 09:02 Freq: Status: Active Protocol: Document 03/18/24 09:02 [facility] (Rec: 03/18/24 16:42 [facility] [id number]) OP Mobility Evaluation Bed Mobility Rolling painful Supine to and from Sit painful Transfers Sit to Stand painful OP Gait Assessment Gait Gait Assistance Required: Independent Assistive Devices Assistive Device None Gait Deviations General Gait Pattern Decreased Stride Length, Decreased Feet Clearance Factors Limiting Gait Function Factors Limiting Gait Function Pain PT-OP-H Neuro Start: 03/18/24 09:02 Freq: Status: Active Protocol: Document 03/18/24 09:02 [facility] (Rec: 03/18/24 16:42 [facility] [id number]) Sensation Evaluation Gross Sensation Gross Sensation WNL PT-OP-J Posture/Palpation/Skin Start: 03/18/24 09:02 Freq: Status: Active Protocol: Document 03/18/24 09:02 [facility] (Rec: 03/18/24 16:42 [facility] [id number]) Posture Evaluation Position Standing Head/C-Spine Posture Forward Head T-Spine Posture Increased Kyphosis L-Spine Posture Increased Lordosis Shoulder Posture (L) Rounded,(R) Rounded Pelvis Posture Anteriorly Tilted Weight Distribution Balanced Palpation Assessment Location john lumbar paraspinals, SI Palpation Findings Soft Tissue Tightness, Tenderness PT-OP-K Range of Motion Start: 03/18/24 09:02 Freq: Status: Active Protocol: Document 03/18/24 09:02 SAK (Rec: 03/18/24 16:42 SAK [id number]) Lumbar Spine Range of Motion Lumbar Spine Active Flexion 60 Extension 0 Rotation Left 20 Rotation Right 20 Lateral Flexion Left 35 Lateral Flexion Right 30 ROM Limitations Pain Hip Goniometric Range of Motion Hip john Flexion w/Knee Flexed 110 Straight Leg Raise 60 Extension 0 Abduction 30 Internal Rotation 15 External Rotation 45 Hip ROM Limitations Hip ROM Limitations Soft Tissue Tightness,Pain PT-OP-L Special Tests Start: 03/18/24 09:02 Freq: Status: Active Protocol: Document 03/18/24 09:02 SAK (Rec: 03/18/24 16:42 SAK [id number]) Special Tests Lumbar Spine Special Tests Straight Leg Raise Test Results - Slump Test Results - Compression Test Results - PT-OP-M Strength Start: 03/18/24 09:02 Freq: Status: Active Protocol: Document 03/18/24 09:02 SAK (Rec: 03/18/24 16:42 [facility] [id number]) Trunk Strength Trunk Manual Muscle Testing Flexion 2+ Poor+ Extension 2+ Poor+ Core Stabilization poor Hip Strength Hip Manual Muscle Testing john Flexion (L2) 4 Good Extension (S1) 3- Fair- Abduction 3+ Fair+ External Rotation 3+ Fair+ Internal Rotation 4 Good Comments painful and poor core stab PT-OP-Q Treatments Start: 03/18/24 09:02 Freq: Status: Active Protocol: Document 03/26/24 11:41 NBM (Rec: 03/26/24 12:34 NBM [id number]) Therapeutic Exercises Supine Exercises hip flexor stretch Supine Exercise Name Logan position - HEP review Side right Equipment Used hi/lo table Reps/Minutes x30s Comments foot supported> unsupported; pain-free BKFO Supine Exercise Name added to HEP Side bilateral Equipment Used MANAGER NET monitoring TrA medial to ASIS Reps/Minutes x10 ea Comments cues for slower pacing, breathwork, smaller range. hip add Supine Exercise Name hip adduction (HEP in sitting) Side bilateral Equipment Used folded pillow Reps/Minutes 10 x2 breathcycles (5) Comments cues for TrA and breath PPT Supine Exercise Name Posterior pelvic tilt - HEP review Reps/Minutes 10 x 2 breathcycles (5) Comments cues for TrA and breath Therapeutic Activity Therapeutic Activity log roll Comments sitting EOB<>sidelying john<> hooklying using log roll method. Cues for TrA and breath with movement. HO given . Self-Care/Home Management Treatment Education Patient Education Body Mechanics,Home Exercise Program,Pain Management Other Education HEP review. -education of Transverse abdominis m. anatomy and activitation w/ visual aids, interrelationship w/ diaphragm and pelvic floor, and importance of not breathholding to improve core recruitment and low back pain. PT-OP-R Modalities Start: 03/18/24 09:02 Freq: Status: Active Protocol: Document 03/18/24 09:02 SAK (Rec: 03/18/24 16:42 SAK [id number]) Hot Pack/Cold Pack Treatment Cold Pack Location lumbosacral spine Patient Position Sitting PT-OP-T Assessment and Plan Start: 03/18/24 09:02 Freq: Status: Active Protocol: Document 03/26/24 11:41 NBM (Rec: 03/26/24 12:34 NBM [id number]) Physical Therapy Assessment Goals Five Impairment . Four Impairment . Three Impairment core stabilization and strength impairments core and LE's Impairment L knee flexion 118 deg Short Term Goal (STG) Patient to be instructed in HEP for purposes of core and hip strengthening and stabilization to support therapy activities 03/26/24: HEP review: PPT, hip adduction, self-STM w/ rolling pin. BKFO added -HO given. STG Duration 05/01/[address] Goal (LTG) Patient to be indepednent and compliant with HEP and demonstrate improvement of strength to at least 4+/5 and demonstrate appropriate core stabilization with usual activities LTG Duration 06/18/24 Two Impairment Oswestry disability index score 50% Impairment pain with stairs Short Term Goal (STG) Decrease Oswestry to no greater than 30% as measure of improved activity tolerance and function STG Duration 05/01/24 Long-Term Goal (LTG) Decrease Oswestry to no greater than 20% as measure of improved activity tolerance and function LTG Duration 06/18/24 One Impairment severe LBP as high as 7/10, interrupts sleep Impairment pain with squats Short Term Goal (STG) Decrease pain to no greater than 4/10 with all usual activities with improved sleep STG Duration 05/01/[address] Goal (LTG) Decrease patient pain to no greater than 2/10 with all usual activities and able to return to normal sleep ability including ability to roll over in bed without pain. LTG Duration 06/18/24 Assessment Summary Assessment Maria Del Carmen presents with 3/10 low back and L hip pain which is unchanged end of session. Treatment focus on HEP review, log roll, and education of Transverse abdominis m. anatomy and activitation w/ visual aids, interrelationship w/ diaphragm and pelvic floor , and importance of not breathholding to improve core recruitment and low back pain. She is able to perform hip flexor stretch in Logan position without pain end of session. Pt requires cues for breatholding throughout treatment session, and lacks carryover with log roll for getting out of bed - HO given. Added to HEP: Bent knee fallout - HO given. Physical Therapy Plan Frequency and Duration Frequency of Treatment 2x/Week Duration of treatment (weeks) 12 Plan of Care Start Date 03/18/24 Plan of Care End Date 06/18/24 Therapeutic Interventions Therapeutic Interventions Home Exercise Program,Manual Therapy,Neuromuscular Re- education,Patient/Caregiver Education,Self-Care/Home Management,Soft Tissue Mobilization,Taping Modalities Cold Pack/Ice Massage,Electric Stimulation,Hot Packs, Infrared Therapy,Traction- Mechanical,Ultrasound Next Visit Focus/Plan Next Note Type Treatment Note Next Visit Plan Review HEP, work on automatic core engagement, strengthening . Update HEP as indicated. Provide soft tissue mobilization and consider IFES for decreased muscle tension and pain.
--- NOTE | 2024-03-30 12:42 | PT.OTN ---
Current Diagnoses Radiculopathy, lumbosacral region (03/30/24) Low back pain, unspecified (03/30/24) Weakness (03/30/24) Physical Therapy Treatment Note PT-OP-A Visit Information Start: 03/18/24 09:02 Freq: Status: Active Protocol: Document 03/30/24 12:26 NBM (Rec: 03/30/24 12:42 NBM [id number]) Out-Patient Physical Therapy Visit Information Visit Information Visit Note treat Visit Start Time 11:38 Visit Stop Time 12:18 Visit Number 3 Number of ASSOCIATE SALES REPRESENTATIVE Visits 2 Evaluation Information Evaluation Date 03/18/24 Precautions Precautions PMH: john TKA, john carpal tunnel PT-OP-B Current Condition Start: 03/18/24 09:02 Freq: Status: Active Protocol: Document 03/18/24 09:02 SAK (Rec: 03/18/24 09:55 SAK [id number]) Current Condition History of Current Condition Onset Date January 2024 Current Complaints severe LBP with radicular symptoms john [place]'s History of Current Condition Was on recumbant bike had never used arm component of machine, next morning couldn't stand up fully when got out of bed. Hasn't gotten any better. Went to urgent care, tried Ibuprofen, no change. Saw Dr. Umaña: x-ray negative . After another week MRI. Got appointment at spine for Apr 07. Long history of back pain ever since her 50's. Had discectomy 2016 L45. Has had a couple cortisone shots prior to that surgery, 1 in 2017. 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 Currently difficulty sleeping; and horrendous to get up out of bed. Pain sharp at times, radiates posteriorly and laterally down legs. No usual exercise except bike and walking but not able to do either of those currently. States she is frustrated by lack of activity tolerance as she wants to be able to exercise and lose weight. Prior Treatments and Tests injections, heat, ice, stretching, medication; Ibuprofen and Tylenol. Prior TKA with PT. MRI 03/06/24 showed multiple levels of significant lumbar spine degenerative change mildly progressed compared to 2018. 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 By 4 o'clock I'm done. She can do the hip flexor stretch with her leg off the side without pain by keeping her foot on the ground. Patient Reported Progress Same PT-OP-G Mobility & Gait Start: 03/18/24 09:02 Freq: Status: Active Protocol: Document 03/18/24 09:02 [facility] (Rec: 03/18/24 16:42 [facility] [id number]) OP Mobility Evaluation Bed Mobility Rolling painful Supine to and from Sit painful Transfers Sit to Stand painful OP Gait Assessment Gait Gait Assistance Required: Independent Assistive Devices Assistive Device None Gait Deviations General Gait Pattern Decreased Stride Length, Decreased Feet Clearance Factors Limiting Gait Function Factors Limiting Gait Function Pain PT-OP-H Neuro Start: 03/18/24 09:02 Freq: Status: Active Protocol: Document 03/18/24 09:02 [facility] (Rec: 03/18/24 16:42 [facility] [id number]) Sensation Evaluation Gross Sensation Gross Sensation WNL PT-OP-J Posture/Palpation/Skin Start: 03/18/24 09:02 Freq: Status: Active Protocol: Document 03/18/24 09:02 [facility] (Rec: 03/18/24 16:42 [facility] [id number]) Posture Evaluation Position Standing Head/C-Spine Posture Forward Head T-Spine Posture Increased Kyphosis L-Spine Posture Increased Lordosis Shoulder Posture (L) Rounded,(R) Rounded Pelvis Posture Anteriorly Tilted Weight Distribution Balanced Palpation Assessment Location john lumbar paraspinals, SI Palpation Findings Soft Tissue Tightness, Tenderness PT-OP-K Range of Motion Start: 03/18/24 09:02 Freq: Status: Active Protocol: Document 03/18/24 09:02 SAK (Rec: 03/18/24 16:42 SAK [id number]) Lumbar Spine Range of Motion Lumbar Spine Active Flexion 60 Extension 0 Rotation Left 20 Rotation Right 20 Lateral Flexion Left 35 Lateral Flexion Right 30 ROM Limitations Pain Hip Goniometric Range of Motion Hip john Flexion w/Knee Flexed 110 Straight Leg Raise 60 Extension 0 Abduction 30 Internal Rotation 15 External Rotation 45 Hip ROM Limitations Hip ROM Limitations Soft Tissue Tightness,Pain PT-OP-L Special Tests Start: 03/18/24 09:02 Freq: Status: Active Protocol: Document 03/18/24 09:02 SAK (Rec: 03/18/24 16:42 SAK [id number]) Special Tests Lumbar Spine Special Tests Straight Leg Raise Test Results - Slump Test Results - Compression Test Results - PT-OP-M Strength Start: 03/18/24 09:02 Freq: Status: Active Protocol: Document 03/18/24 09:02 SAK (Rec: 03/18/24 16:42 SAK [id number]) Trunk Strength Trunk Manual Muscle Testing Flexion 2+ Poor+ Extension 2+ Poor+ Core Stabilization poor Hip Strength Hip Manual Muscle Testing john Flexion (L2) 4 Good Extension (S1) 3- Fair- Abduction 3+ Fair+ External Rotation 3+ Fair+ Internal Rotation 4 Good Comments painful and poor core stab PT-OP-Q Treatments Start: 03/18/24 09:02 Freq: Status: Active Protocol: Document 03/30/24 12:26 NBM (Rec: 03/30/24 12:42 NBM [id number]) Therapeutic Exercises Supine Exercises hip flexor stretch Supine Exercise Name Logan position - HEP review Side right Equipment Used hi/lo table Reps/Minutes x30s Comments foot supported; pain-free BKFO Supine Exercise Name HEP review Side bilateral Equipment Used ASSOCIATE SALES REPRESENTATIVE monitoring TrA medial to ASIS Reps/Minutes x10 ea Comments cues for slower pacing, breathwork PPT Supine Exercise Name Posterior pelvic tilt - HEP review Equipment Used ASSOCIATE SALES REPRESENTATIVE monitoring TrA medial to ASIS Reps/Minutes 10x 1 breathcycle, 10 x 2 breathcycles (5) Comments cues for breath Sitting Exercises hip adduction Sitting Exercise Name pillow squeeze Side bilateral Reps/Minutes 10x 2 breathcycles (5) Comments cues for TrA Therapeutic Activity Therapeutic Activity Sleep positioning Comments sidelying left w/ pillow supports for spinal alignment. Pain resolves to 0/10 w/ addition of pillow under L side. HO given. log roll Name Reviewed Comments sitting EOB<>sidelying john<> hooklying using log roll method. Cues for TrA and breath with movement. HO given . Manual Therapy Treatment Consent Patient gave verbal consent for manual Yes treatment Soft Tissue Mobilization LEs Body Location B Hamstrings, R piriformis, glutes Mobilization Type Rolling,Strumming,Sustained Pressure Intensity/Depth superficial, moderate Body Position hooklying, sidelying Comments HS cramps resolve w/ STM and manual stretch. lumbar Body Location paraspinals, R QL Mobilization Type Rolling,Strumming,Sustained Pressure,Other Intensity/Depth superficial, moderate Body Position Sidelying Comments pillow supports between LEs and under L side. manual pin and stretch to R QL 2x30s - pos feedback response PT-OP-R Modalities Start: 03/18/24 09:02 Freq: Status: Active Protocol: Document 03/18/24 09:02 SAK (Rec: 03/18/24 16:42 SAK [id number]) Hot Pack/Cold Pack Treatment Cold Pack Location lumbosacral spine Patient Position Sitting PT-OP-T Assessment and Plan Start: 03/18/24 09:02 Freq: Status: Active Protocol: Document 03/30/24 12:26 [facility] (Rec: 03/30/24 12:42 [facility] [id number]) Physical Therapy Assessment Goals Five Impairment . Impairment HEP Four Impairment . Impairment 4/5 MMT L hip abd and ext, quad strength Three Impairment core stabilization and strength impairments core and LE's Impairment L knee flexion 118 deg Short Term Goal (STG) Patient to be instructed in HEP for purposes of core and hip strengthening and stabilization to support therapy activities 03/26/24: HEP review: PPT, hip adduction, self-STM w/ rolling pin. BKFO added -HO given. STG Duration 05/01/24 Longterm Goal (LTG) Patient to be indepednent and compliant with HEP and demonstrate improvement of strength to at least 4+/5 and demonstrate appropriate core stabilization with usual activities LTG Duration 06/18/24 Two Impairment Oswestry disability index score 50% Impairment pain with stairs Short Term Goal (STG) Decrease Oswestry to no greater than 30% as measure of improved activity tolerance and function STG Duration 05/01/24 Longterm Goal (LTG) Decrease Oswestry to no greater than 20% as measure of improved activity tolerance and function LTG Duration 06/18/24 One Impairment severe LBP as high as 7/10, interrupts sleep Impairment pain with squats Short Term Goal (STG) Decrease pain to no greater than 4/10 with all usual activities with improved sleep STG Duration 05/01/24 Longterm Goal (LTG) Decrease patient pain to no greater than 2/10 with all usual activities and able to return to normal sleep ability including ability to roll over in bed without pain. LTG Duration 06/18/24 Assessment Summary Assessment Tyra presents with 3/10 low back pain which resolves in supported sidelying with manual therapy, and returns to baseline 3/10 ambulating out of clinic end of session. She is challenged to hold TrA and PPT with breathwork in supine, with BKFO, and in standing. Supported side sleeping positioning for spinal alignment discussed and trialed on L side w/ pillow under L side, w/ cueing for TrA and PPTs - 0/10 pain - HO given. Physical Therapy Plan Frequency and Duration Frequency of Treatment 2x/Week Duration of treatment (weeks) 12 Plan of Care Start Date 03/18/24 Plan of Care End Date 06/18/24 Therapeutic Interventions Therapeutic Interventions Home Exercise Program,Manual Therapy,Neuromuscular Re- education,Patient/Caregiver Education,Self-Care/Home Management,Soft Tissue Mobilization,Taping Modalities Cold Pack/Ice Massage,Electric Stimulation,Hot Packs, Infrared Therapy,Traction- Mechanical,Ultrasound Next Visit Focus/Plan Next Note Type Treatment Note Next Visit Plan Address pt's inquiries about pool therapy. POC: Review HEP, work on automatic core engagement, strengthening. Update HEP as indicated. Provide soft tissue mobilization and consider IFES for decreased muscle tension and pain.
--- NOTE | 2024-04-22 12:19 | PT.OTN ---
Current Diagnoses Radiculopathy, lumbosacral region (04/22/24) Low back pain, unspecified (04/22/24) Weakness (04/22/24) Physical Therapy Treatment Note PT-OP-A Visit Information Start: 03/18/24 09:02 Freq: Status: Active Protocol: Document 04/22/24 11:41 SP (Rec: 04/22/24 12:30 SP [id number]) Out-Patient Physical Therapy Visit Information Visit Information Visit Type Treatment Note Visit Start Time 11:40 Visit Stop Time 12:19 Visit Number 4 Number of RAIL CAR MECHANIC Visits 1 Evaluation Information Evaluation Date 03/18/24 Precautions Precautions PMH: john TKA, john carpal tunnel PT-OP-B Current Condition Start: 03/18/24 09:02 Freq: Status: Active Protocol: Document 03/18/24 09:02 SAK (Rec: 03/18/24 09:55 SAK [id number]) Current Condition History of Current Condition Onset Date January 2024 Current Complaints severe LBP with radicular symptoms john [place]'s History of Current Condition Was on recumbant bike had never used arm component of machine, next morning couldn't stand up fully when got out of bed. Hasn't gotten any better. Went to urgent care, tried Ibuprofen, no change. Saw Dr. Umaña: x-ray negative . After another week MRI. Got appointment at spine for Apr 07. Long history of back pain ever since her 50's. Had discectomy 2016 L45. Has had a couple cortisone shots prior to that surgery, 1 in 2017. 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 Currently difficulty sleeping; and horrendous to get up out of bed. Pain sharp at times, radiates posteriorly and laterally down legs. No usual exercise except bike and walking but not able to do either of those currently. States she is frustrated by lack of activity tolerance as she wants to be able to exercise and lose weight. Prior Treatments and Tests injections, heat, ice, stretching, medication; Ibuprofen and Tylenol. Prior TKA with PT. MRI 03/06/24 showed multiple levels of significant lumbar spine degenerative change mildly progressed compared to 2018. 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 Doesn't like the pool so not wanting to incorporated into her HEP. She did see her sports and spine doc at the [place] 2 weeks ago, told can call back if feels needed . Still having pain, comes and goes. Has incorporated position changes sitting sewing into standing desk and has helped alot with pain control/reduction. Incorporating rolling pin. Was able to carry 17 lb bag norma litter up the stairs and did fine, no pain. Patient Questionnaires Oswestry Low Back Index Oswestry Score 2/50=40% Oswestry Impairment 1 to 19% Impaired (Score 1-19) PT-OP-G Mobility & Gait Start: 03/18/24 09:02 Freq: Status: Active Protocol: Document 03/18/24 09:02 [facility] (Rec: 03/18/24 16:42 [facility] [id number]) OP Mobility Evaluation Bed Mobility Rolling painful Supine to and from Sit painful Transfers Sit to Stand painful OP Gait Assessment Gait Gait Assistance Required: Independent Assistive Devices Assistive Device None Gait Deviations General Gait Pattern Decreased Stride Length, Decreased Feet Clearance Factors Limiting Gait Function Factors Limiting Gait Function Pain PT-OP-H Neuro Start: 03/18/24 09:02 Freq: Status: Active Protocol: Document 03/18/24 09:02 [facility] (Rec: 03/18/24 16:42 [facility] [id number]) Sensation Evaluation Gross Sensation Gross Sensation WNL PT-OP-J Posture/Palpation/Skin Start: 03/18/24 09:02 Freq: Status: Active Protocol: Document 03/18/24 09:02 SAK (Rec: 03/18/24 16:42 SAK [id number]) Posture Evaluation Position Standing Head/C-Spine Posture Forward Head T-Spine Posture Increased Kyphosis L-Spine Posture Increased Lordosis Shoulder Posture (L) Rounded,(R) Rounded Pelvis Posture Anteriorly Tilted Weight Distribution Balanced Palpation Assessment Location john lumbar paraspinals, SI Palpation Findings Soft Tissue Tightness, Tenderness PT-OP-K Range of Motion Start: 03/18/24 09:02 Freq: Status: Active Protocol: Document 03/18/24 09:02 SAK (Rec: 03/18/24 16:42 SAK [id number]) Lumbar Spine Range of Motion Lumbar Spine Active Flexion 60 Extension 0 Rotation Left 20 Rotation Right 20 Lateral Flexion Left 35 Lateral Flexion Right 30 ROM Limitations Pain Hip Goniometric Range of Motion Hip john Flexion w/Knee Flexed 110 Straight Leg Raise 60 Extension 0 Abduction 30 Internal Rotation 15 External Rotation 45 Hip ROM Limitations Hip ROM Limitations Soft Tissue Tightness,Pain PT-OP-L Special Tests Start: 03/18/24 09:02 Freq: Status: Active Protocol: Document 03/18/24 09:02 SAK (Rec: 03/18/24 16:42 SAK [id number]) Special Tests Lumbar Spine Special Tests Straight Leg Raise Test Results - Slump Test Results - Compression Test Results - PT-OP-M Strength Start: 03/18/24 09:02 Freq: Status: Active Protocol: Document 03/18/24 09:02 SAK (Rec: 03/18/24 16:42 SAK [id number]) Trunk Strength Trunk Manual Muscle Testing Flexion 2+ Poor+ Extension 2+ Poor+ Core Stabilization poor Hip Strength Hip Manual Muscle Testing john Flexion (L2) 4 Good Extension (S1) 3- Fair- Abduction 3+ Fair+ External Rotation 3+ Fair+ Internal Rotation 4 Good Comments painful and poor core stab PT-OP-Q Treatments Start: 03/18/24 09:02 Freq: Status: Active Protocol: Document 04/22/24 11:41 SP (Rec: 04/22/24 12:30 SP [id number]) Therapeutic Exercises Supine Exercises hip flexor stretch Supine Exercise Name Logan position - HEP review Side right Equipment Used hi/lo table Reps/Minutes x30s Comments foot light contact table as bench home; pain-free BKFO Supine Exercise Name HEP review Side bilateral Resistance AROM> TB #1 at thighs Equipment Used RAIL CAR MECHANIC monitoring TrA medial to ASIS Reps/Minutes x10 ea Comments cues for slower pacing, pnfree Sitting Exercises Eccentric squat taps Sitting Exercise Name 1. taps 2. hip hinge getting item off ground Resistance trialed in PT for functional mobility Equipment Used 18 hi lo table Reps/Minutes 1. x10 arms across chest 2. x5 Comments 2. cues back straight hip hinge, knee flexion hip adduction Sitting Exercise Name pillow squeeze- HEP Side bilateral Reps/Minutes 10x 2 breathcycles (5) Comments cues upright posture, hold contraction for TrA Therapeutic Activity Therapeutic Activity Sleep positioning Comments sidelying left w/ pillow supports for spinal alignment. Pain resolves to 0/10 w/ addition of pillow under L side. HO given. PT-OP-R Modalities Start: 03/18/24 09:02 Freq: Status: Active Protocol: Document 03/18/24 09:02 SAK (Rec: 03/18/24 16:42 SAK [id number]) Hot Pack/Cold Pack Treatment Cold Pack Location lumbosacral spine Patient Position Sitting PT-OP-T Assessment and Plan Start: 03/18/24 09:02 Freq: Status: Active Protocol: Document 04/22/24 11:41 SP (Rec: 04/22/24 12:30 SP [id number]) Physical Therapy Assessment Goals Five Impairment . Impairment HEP Short Term Goal (STG) 04/22/24: see there ex today performing as HEP. Four Impairment . Impairment 4/5 MMT L hip abd and ext, quad strength Three Impairment core stabilization and strength impairments core and LE's Impairment L knee flexion 118 deg Short Term Goal (STG) Patient to be instructed in HEP for purposes of core and hip strengthening and stabilization to support therapy activities 03/26/24: HEP review: PPT, hip adduction, self-STM w/ rolling pin. BKFO added -HO given. 04/22/24: L knee flexion continue 118 deg, added resistance to hooklying KFO TB #1 pnfree. STG Duration 05/01/24 progressing 04/22/24 Child Caregiver Goal (LTG) Patient to be indepednent and compliant with HEP and demonstrate improvement of strength to at least 4+/5 and demonstrate appropriate core stabilization with usual activities LTG Duration 06/18/24 Two Impairment Oswestry disability index score 50% Impairment pain with stairs Short Term Goal (STG) Decrease Oswestry to no greater than 30% as measure of improved activity tolerance and function 04/22/24: 2/50= 40%- reports much improved able carry 17lb bag norma litter up stairs no pain. STG Duration 05/01/24 progressing 04/22/24 Child Caregiver Goal (LTG) Decrease Oswestry to no greater than 20% as measure of improved activity tolerance and function LTG Duration 06/18/24 One Impairment severe LBP as high as 7/10, interrupts sleep Impairment pain with squats Short Term Goal (STG) Decrease pain to no greater than 4/10 with all usual activities with improved sleep 04/22/24: still has pain 4/10 when wakes up but not while sleeping. Ed performing today with pillow under knees/pelvis hooklying and SL beween knees under head and behind back for spinal support, pnfree reported. No pain carrying 17lb norma litter up stairs. STG Duration 05/01/24 progression 04/22/24 Child Caregiver Goal (LTG) Decrease patient pain to no greater than 2/10 with all usual activities and able to return to normal sleep ability including ability to roll over in bed without pain. LTG Duration 06/18/24 Assessment Summary Assessment PT Nitza touched base during tx to check how pt doing and recommended 1 more appt in 1 month to assess progress doing self on own with HEP, pt verbalized agreeable. Pt tolerated stretching review, added resistance for core and hip strengthening to hooklying clamshell. Good stabiltiy with AROM eccentric squat chair taps and squat mechanics picking item off floor no UE support. Physical Therapy Plan Frequency and Duration Frequency of Treatment 2x/Week Duration of treatment (weeks) 12 Plan of Care Start Date 03/18/24 Plan of Care End Date 06/18/24 Therapeutic Interventions Therapeutic Interventions Home Exercise Program,Manual Therapy,Neuromuscular Re- education,Patient/Caregiver Education,Self-Care/Home Management,Soft Tissue Mobilization,Taping Modalities Cold Pack/Ice Massage,Electric Stimulation,Hot Packs, Infrared Therapy,Traction- Mechanical,Ultrasound Next Visit Focus/Plan Next Note Type Treatment Note Next Visit Plan Pt returning 1 mo follow up with PT potential DC. POC: Review HEP, work on automatic core engagement, strengthening. Update HEP as indicated.
--- NOTE | 2024-05-19 15:05 | PT.OTN ---
Current Diagnoses Radiculopathy, lumbosacral region (05/19/24) Low back pain, unspecified (05/19/24) Weakness (05/19/24) Physical Therapy Treatment Note PT-OP-A Visit Information Start: 03/18/24 09:02 Freq: Status: Active Protocol: Document 05/19/24 14:33 [facility] (Rec: 05/19/24 15:05 [facility] [id number]) Out-Patient Physical Therapy Visit Information Visit Information Visit Type Discharge Summary Visit Start Time 14:33 Visit Stop Time 15:11 Visit Number 5 Evaluation Information Evaluation Date 03/18/24 Precautions Precautions PMH: john TKA, john carpal tunnel PT-OP-B Current Condition Start: 03/18/24 09:02 Freq: Status: Active Protocol: Document 05/19/24 14:33 [facility] (Rec: 05/19/24 15:05 [facility] [id number]) Current Condition History of Current Condition Onset Date January 2024 Current Complaints severe LBP with radicular symptoms john [place] History of Current Condition Was on recumbant bike had never used arm component of machine, next morning couldn't stand up fully when got out of bed. Hasn't gotten any better. Went to urgent care, tried Ibuprofen, no change. Saw Dr. Umaña: x-ray negative . After another week MRI. Got appointment at spine for Apr 07. Long history of back pain ever since her 50's. Had discectomy 2016 L45. Has had a couple cortisone shots prior to that surgery, 1 in 2018. 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 Currently difficulty sleeping; and horrendous to get up out of bed. Pain sharp at times, radiates posteriorly and laterally down legs. No usual exercise except bike and walking but not able to do either of those currently. States she is frustrated by lack of activity tolerance as she wants to be able to exercise and lose weight. Prior Treatments and Tests injections, heat, ice, stretching, medication; Ibuprofen and Tylenol. Prior TKA with PT. MRI 03/06/24 showed multiple levels of significant lumbar spine degenerative change mildly progressed compared to 2018. PT-OP-C Subjective Start: 03/18/24 09:02 Freq: Status: Active Protocol: Document 05/19/24 14:33 [facility]AK (Rec: 05/19/24 15:05 [facility] [id number]) OP-PT Subjective Patient Comments Patient Comments Patient reports about 75% better, continues to improve. PT-OP-G Mobility & Gait Start: 03/18/24 09:02 Freq: Status: Active Protocol: Document 03/18/24 09:02 [facility] (Rec: 03/18/24 16:42 [facility] [id number]) OP Mobility Evaluation Bed Mobility Rolling painful Supine to and from Sit painful Transfers Sit to Stand painful OP Gait Assessment Gait Gait Assistance Required: Independent Assistive Devices Assistive Device None Gait Deviations General Gait Pattern Decreased Stride Length, Decreased Feet Clearance Factors Limiting Gait Function Factors Limiting Gait Function Pain PT-OP-H Neuro Start: 03/18/24 09:02 Freq: Status: Active Protocol: Document 03/18/24 09:02 [facility] (Rec: 03/18/24 16:42 [facility] [id number]) Sensation Evaluation Gross Sensation Gross Sensation WNL PT-OP-J Posture/Palpation/Skin Start: 03/18/24 09:02 Freq: Status: Active Protocol: Document 03/18/24 09:02 [facility] (Rec: 03/18/24 16:42 [facility] [id number]) Posture Evaluation Position Standing Head/C-Spine Posture Forward Head T-Spine Posture Increased Kyphosis L-Spine Posture Increased Lordosis Shoulder Posture (L) Rounded,(R) Rounded Pelvis Posture Anteriorly Tilted Weight Distribution Balanced Palpation Assessment Location john lumbar paraspinals, SI Palpation Findings Soft Tissue Tightness, Tenderness PT-OP-K Range of Motion Start: 03/18/24 09:02 Freq: Status: Active Protocol: Document 03/18/24 09:02 [facility] (Rec: 03/18/24 16:42 [facility] [id number]) Lumbar Spine Range of Motion Lumbar Spine Active Flexion 60 Extension 0 Rotation Left 20 Rotation Right 20 Lateral Flexion Left 35 Lateral Flexion Right 30 ROM Limitations Pain Hip Goniometric Range of Motion Hip john Flexion w/Knee Flexed 110 Straight Leg Raise 60 Extension 0 Abduction 30 Internal Rotation 15 External Rotation 45 Hip ROM Limitations Hip ROM Limitations Soft Tissue Tightness,Pain PT-OP-L Special Tests Start: 03/18/24 09:02 Freq: Status: Active Protocol: Document 03/18/24 09:02 [facility] (Rec: 03/18/24 16:42 [facility] [id number]) Special Tests Lumbar Spine Special Tests Straight Leg Raise Test Results - Slump Test Results - Compression Test Results - PT-OP-M Strength Start: 03/18/24 09:02 Freq: Status: Active Protocol: Document 03/18/24 09:02 [facility] (Rec: 03/18/24 16:42 [facility] [id number]) Trunk Strength Trunk Manual Muscle Testing Flexion 2+ Poor+ Extension 2+ Poor+ Core Stabilization poor Hip Strength Hip Manual Muscle Testing john Flexion (L2) 4 Good Extension (S1) 3- Fair- Abduction 3+ Fair+ External Rotation 3+ Fair+ Internal Rotation 4 Good Comments painful and poor core stab PT-OP-Q Treatments Start: 03/18/24 09:02 Freq: Status: Active Protocol: Document 05/19/24 14:33 [facility] (Rec: 05/19/24 15:05 [facility] [id number]) Therapeutic Exercises Supine Exercises bridge Reps/Minutes verbal review hip flexor stretch Supine Exercise Name verbal review BKFO Supine Exercise Name verbal review PPT Supine Exercise Name verbal review Sidelying Exercises Hip abduction Reps/Minutes 10x Comments cues for keeping LE's parallel Sitting Exercises Eccentric squat taps Sitting Exercise Name 1. taps 2. hip hinge getting item off ground Resistance trialed in PT for functional mobility Equipment Used 18 hi lo table Reps/Minutes 1. x10 arms across chest 2. x5 Comments 2. cues back straight hip hinge, knee flexion hip adduction Sitting Exercise Name verbal review Therapeutic Activity Therapeutic Activity Sleep positioning Comments verbal review log roll Comments verbal review Manual Therapy Treatment Soft Tissue Mobilization LEs Comments verbal review self massage Self-Care/Home Management Treatment Education Other Education updated written HEP to add bridge, chair squat, sidelying hip ab PT-OP-R Modalities Start: 03/18/24 09:02 Freq: Status: Active Protocol: Document 03/18/24 09:02 [facility] (Rec: 03/18/24 16:42 [facility] [id number]) Hot Pack/Cold Pack Treatment Cold Pack Location lumbosacral spine Patient Position Sitting PT-OP-T Assessment and Plan Start: 03/18/24 09:02 Freq: Status: Active Protocol: Document 05/19/24 14:33 [facility] (Rec: 05/19/24 15:05 [facility] [id number]) Physical Therapy Assessment Goals Five Paleology Teacher Goal (LTG) goal met, patient indep Four Impairment . Impairment 4/5 MMT L hip abd and ext, quad strength Fdc Goal (LTG) strength 4+/5 all LE muscle groups LTG Duration goal met Three Impairment core stabilization and strength impairments core and LE's Impairment L knee flexion 118 deg Short Term Goal (STG) Patient to be instructed in HEP for purposes of core and hip strengthening and stabilization to support therapy activities 03/26/24: HEP review: PPT, hip adduction, self-STM w/ rolling pin. BKFO added -HO given. 04/22/24: L knee flexion continue 118 deg, added resistance to hooklying KFO TB #1 pnfree. STG Duration goal met Paleology Teacher Goal (LTG) Patient to be indepednent and compliant with HEP and demonstrate improvement of strength to at least 4+/5 and demonstrate appropriate core stabilization with usual activities LTG Duration goal met Two Impairment Oswestry disability index score 50% Impairment pain with stairs Short Term Goal (STG) Decrease Oswestry to no greater than 30% as measure of improved activity tolerance and function 04/22/24: 2/50= 40%- reports much improved able carry 17lb bag norma litter up stairs no pain. STG Duration goal met Paleology Teacher Goal (LTG) Decrease Oswestry to no greater than 20% as measure of improved activity tolerance and function 03/19/25: goal met 6% LTG Duration goal met One Impairment severe LBP as high as 7/10, interrupts sleep Impairment pain with squats Short Term Goal (STG) Decrease pain to no greater than 4/10 with all usual activities with improved sleep 04/22/24: still has pain 4/10 when wakes up but not while sleeping. Ed performing today with pillow under knees/pelvis hooklying and SL beween knees under head and behind back for spinal support, pnfree reported. No pain carrying 17lb norma litter up stairs. STG Duration goal met Paleology Teacher Goal (LTG) Decrease patient pain to no greater than 2/10 with all usual activities and able to return to normal sleep ability including ability to roll over in bed without pain. 05/19/24: goal met LTG Duration goal met Assessment Summary Assessment PT goals all met, patient doing well, independent in HEP , updated written HO. Patient agreeable to discharge from PT. Physical Therapy Plan Discharge Physical Therapy Discharge Reasons Goals Met
== END 2024-05-21 10:35 | disposition home or self-care (01) ==
LOC: PHYS 14:30
PROVIDERS: Family Provider Family Medicine; PCP Family Medicine; Referring Provider Family Medicine; Visit Provider Family Medicine
DX: M54.50 Low back pain, unspecified (principal); M54.17 Radiculopathy, lumbosacral region; R53.1 Weakness
CPT/HCPCS: 97110; 97140; 97162; 97530; 97535

== ENCOUNTER 2024-07-27 13:09 | Outpatient (CLI) | payer MEDICARE, BC, SELFPAY ==
[2024-07-27] VITALS (9 sets, daily range): BP systolic 129–190; BP diastolic 74–102; PULSE 71–84; RESP 15–17; TEMP 36.9; O2SAT 95–100
[2024-07-27] MEDS: MIDAZOLAM 2 MG/2 ML VIAL IV (14:33)
[2024-07-27] MEDS: BUPIVACAINE 0.25% (PF) VIAL 2 ML INJ (14:36)
[2024-07-27] MEDS: DEXAMETHASONE 10 MG/ML VIAL INJ (14:37)
[2024-07-27] MEDS: iopamidoL 15 ML VIAL 3 ML INJ (14:37)
[2024-07-27] MEDS: BETAMETHASONE 30 MG/5 ML MDV 12 MG INJ (14:39)
--- NOTE | 2024-07-27 14:48 | P.PCN_ITS ---
Date/Time/Diagnoses Date of procedure: 07/27/24 Time of procedure: 14:48 Pre-procedure diagnosis: 1. HNP WITH RADICULAR FEATURES, 2. MULTILEVEL CENTRAL STENOSIS, Post-procedure diagnosis: same Procedure Notes Procedure: 1. FLUOROSCOPICALLY GUIDED CONTRAST CONTROLLED INTERLAMINAR EPIDURAL STEROID INJECTION - L5/S1 Indications: Tyra is referred by Dr. Houston for treatment of Bilateral Foraminal Stenosis L>R LE symptoms. Physician: Tomi Niño Total Fluoroscopy time (seconds): 5 Total sedation minutes: 10 Complications: none Procedure in detail & Post-procedure care: FINDINGS Multilevel Central Spinal Stenosis with Nerve Root Compression DESCRIPTION OF PROCEDURE Fluoroscopically guided, contrast-controlled L5/S1 translaminar epidural steroid injection. Following review of allergy and review of potential side effects and complications, including, but not necessarily limited to, infection, allergic reaction, local tissue breakdown, temporary as well as permanent nerve injury, paralysis, stroke and possible , the patient indicated that the patient understood and agreed to proceed. An informed consent document was signed by the patient, witnessed by a nurse, and placed in the patient's chart. Additionally, other treatment options including modalities, medications, and physical therapy were reviewed with the patient. After review of previous anaesthesic history and IV conscious sedation the patient was deemed safe to proceed with today?s procedure with IV conscious sedation as ASA class II designation. Safety time-out was performed to confirm patient ID, procedure to be performed and site of procedure. IV sedation was accomplished with a combination of 2mg of Versed administered by the RN after DO order, titrated to patient comfort during the course of the procedure while the patient remained responsive to all verbal commands. In the prone position, following sterile prep and drape of the lumbar region, the L5/S1 translaminar space was identified fluoroscopically. The skin was anesthetized via a 25-gauge, 1.5-inch needle with 1% lidocaine solution. At this point, a 22-gauge short bevel spinal needle was atraumatically introduced and advanced under fluoroscopic guidance into the region of the L5/S1 translaminar space. Depth was confirmed on lateral view. Radiological data, including multiple fluoroscopic views of the lumbar spine, reveal a spinal needle at the L5/S1 translaminar space. Lateral views then show placement of the needle in the epidural space. Subsequent views show contrast material flowing superiorly and inferiorly in the epidural space. No vascular or intrathecal uptake is observed. At this point, using loss of resistance technique with saline and air, the epidural space was entered. This was confirmed following negative aspiration with injection of approximately 1.5cc of Isovue 200, showing excellent epidural flow without vascular or intrathecal uptake. At this point, 1 cc of 1% lidocain e solution combined with 2cc or 10mg of dexamethasone and 6mg of betamethasone was injected without incident. The patent tolerated the procedure without signs of symptoms of complications prior to transfer to the recovery area for further monitoring. The patient was then transferred to the recovery area where they were observed for an appropriate period of time after the injection. The patient reported a VAS score of 6 prior to the procedure and a post-procedure VAS of 0. POST OP INSTRUCTIONS The patient was provided a Pain Log to continue to record their response to the target-specific procedure prior to follow-up visit with their referring physician. Additionally, specific post-injection care instructions and a contact number to our office were provided if concerns arise regarding possible complications associated with the procedure are suspected.
== END 2024-07-27 16:30 | disposition home or self-care (01) ==
LOC: RAD 13:10
PROVIDERS: Family Provider Family Medicine; PCP Family Medicine; Referring Provider Physical Medicine & Rehabilitation; Visit Provider Physical Medicine & Rehabilitation
DX: M51.17 Intervertebral disc disorders with radiculopathy, lumbosacral region (principal); M48.07 Spinal stenosis, lumbosacral region
CPT/HCPCS: 62323; 99152; J0702; J1100; J2250; J3490

== ENCOUNTER → 2024-09-24 11:56 | Outpatient (CLI) | payer MEDICARE, BC, SELFPAY ==
[2024-09-24 12:13] LABS: Hematocrit 39.9 % (36-46); Hemoglobin 13.6 g/dL (12.0-16.0); Mean Corpuscular Volume 90.9 fL (80-100); Platelet Count 212 X10^3/uL (150-400); Red Blood Cell Count 4.39 X10^6/uL (4.0-5.2); Red Cell Distribution Width 13.8 % (11.6-14.8); White Blood Cell Count 6.9 X10^3/uL (4.5-11.0)
[2024-09-24 12:40] LABS: Alanine Aminotransferase 25 IU/L (<35); Albumin 4.4 g/dL (3.5-5.0); Albumin Globulin Ratio 1.9 (1.0-2.8); Alkaline Phosphatase 81 U/L (38-126); Aspartate Aminotransferase 31 IU/L (14-36); BUN Creatinine Ratio 26.7 (6-22); Bilirubin Total 0.7 mg/dL (0.2-1.3); Blood Urea Nitrogen 20 mg/dL (7-17); Calcium 9.2 mg/dL (8.4-10.2); Carbon Dioxide 28 mmol/L (22-32); Chloride 106 mmol/L (98-107); Cholesterol 245 mg/dL (140-199); Estimated Glomerular Filt Rate > 60 mL/min (>60); Globulin 2.3 g/dL (1.7-4.1); Glucose 87 mg/dL (70-99); HDL Cholesterol 67 mg/dL (40-60); HEMOLYSIS < 15 (0-50); LDL Cholesterol Calculated 145 mg/dL (<100); Potassium 4.1 mmol/L (3.4-5.1); Sodium 139 mmol/L (137-145); Total Protein 6.7 g/dL (6.3-8.2); Triglycerides 167 mg/dL (35-150)
[2024-09-24 13:09] LABS: TSH w/ Reflex to FT4 2.19 uIU/mL (0.47-4.68)
[2024-09-24 13:28] LABS: Vitamin B12 368 pg/mL (239-931)
[2024-09-25 16:08] LABS: Hep C Virus Ab w/Reflex Quant NEGATIVE s/c (NEGATIVE)
== END ==
PROVIDERS: Family Provider Family Medicine; PCP Family Medicine; Referring Provider Family Medicine; Visit Provider Family Medicine
DX: Z00.00 Encounter for general adult medical examination without abnormal findings (principal); I10 Essential (primary) hypertension; N95.1 Menopausal and female climacteric states; R73.01 Impaired fasting glucose; R53.83 Other fatigue; E66.811 Obesity, class 1; M47.816 Spondylosis without myelopathy or radiculopathy, lumbar region; Z98.890 Other specified postprocedural states; M43.16 Spondylolisthesis, lumbar region; M48.062 Spinal stenosis, lumbar region with neurogenic claudication; M43.17 Spondylolisthesis, lumbosacral region
CPT/HCPCS: 36415; 80053; 80061; 82607; 84443; 85027; 86803; 99214

== ENCOUNTER 2024-09-30 13:22 | Outpatient (CLI) | payer MEDICARE, BC, SELFPAY ==
[2024-09-30] VITALS (10 sets, daily range): BP systolic 142–185; BP diastolic 67–82; PULSE 66–74; RESP 16–18; TEMP 36.1; O2SAT 97–100
[2024-09-30] MEDS: MIDAZOLAM 2 MG/2 ML VIAL IV ×2 (14:38→14:46)
[2024-09-30] MEDS: LIDOCAINE 1% 20 ML 5 ML INJ (14:51)
[2024-09-30] MEDS: BUPIVACAINE 0.5% (PF) 10 ML VIAL 5 ML INJ (14:51)
[2024-09-30] MEDS: iopamidoL 15 ML VIAL 3 ML INJ (14:51)
--- NOTE | 2024-09-30 15:04 | P.PCN_ITS ---
Date/Time/Diagnoses Date of procedure: 09/30/24 Time of procedure: 15:04 Pre-procedure diagnosis: 1. FACET ARTHROPATHY Post-procedure diagnosis: same Procedure Notes Procedure: 1. BILATERAL- L4, L5 and S1 DIAGNOSTIC MB BLOCKS with LA Anesthetic Indications: Tyra is referred by Dr. Houston for treatment of Bilateral Axial LBP. Physician: Tomi Niño Total Fluoroscopy time (seconds): 11 Total sedation minutes: 21 Complications: none Procedure in detail & Post-procedure care: DESCRIPTION OF PROCEDURE Fluoroscopically guided, contrast-controlled bilateral L4, L5 and S1 medial branch blocks with 0.5cc of 0.5% Marcaine. Following review of allergy and review of potential side effects and complications, including, but not necessarily limited to, infection, allergic reaction, local tissue breakdown, nerve injury, paralysis, stroke and possible , the patient indicated that the patient understood and agreed to proceed. An informed consent document was signed by the patient, witnessed by a nurse, and placed in the patient's chart. After review of previous anaesthesic history and IV conscious sedation the patient was deemed safe to proceed with today's procedure with IV conscious sedation as ASA class II designation. Safety time-out was performed to confirm patient ID, procedure to be performed and site of procedure. IV sedation was accomplished with a combination of 4mg of Versed was administered by the RN after DO order, titrated to patient comfort during the course of the procedure while the patient remained responsive to all verbal commands In the prone position, following sterile prep and drape of the lumbar region, the right L4, L5 and S1 anatomical location of the medial branch of the dorsal ramus was identified fluoroscopically. Subsequently an anesthetic skin wheal using 1% lidocaine solution was initiated at each of the anatomical spots. Subsequently then a 22-gauge 3.5-inch spinal needle was atraumatically introduced and advanced under fluoroscopic guidance at each of the corresponding sites at the right L4, L5 and S1 MB. After negative aspiration, 0.2cc of Isovue 200 was injected, confirming placement without vascular or intrathecal uptake. Subsequently then 0.5cc of 0.5% Marcaine solution was injected at each of the corresponding sites at the right L4, L5 and S1 medial branch locations. The identical procedure was replicated on the left. The patient tolerated the procedure well without signs or symptoms of complications prior to transfer to the recovery area continued monitoring without incident. Post-procedure, the patient was monitored initiating provocative activities to measure the amount of relief from block of the facetogenic pain. The patient reported a VAS of 7 prior to the procedure and a post-procedure VAS of 1. It has been a pleasure to assist in the diagnostic and therapeutic care of your patient. POST OP INSTRUCTIONS The patient was provided with a Pain Log to complete over the next several hours and subsequent days prior to the patient's follow up with the ordering physician. If the patient has senior marketing associate relief to the solution applied, then they may be a candidate for medial branch rhizotomy. The patient is aware, was provided, once again, with a Pain Log and will follow up with the referring physician for review and clinical correlation
== END 2024-09-30 15:26 | disposition home or self-care (01) ==
LOC: RAD 13:22
PROVIDERS: Family Provider Family Medicine; PCP Family Medicine; Referring Provider Physical Medicine & Rehabilitation; Visit Provider Physical Medicine & Rehabilitation
DX: M47.816 Spondylosis without myelopathy or radiculopathy, lumbar region (principal)
CPT/HCPCS: 64493; 64494; 99152; J2250

== ENCOUNTER 2024-12-02 10:05 | Outpatient (CLI) | payer MEDICARE, BC, SELFPAY ==
[2024-12-02] VITALS (10 sets, daily range): BP systolic 103–161; BP diastolic 56–91; PULSE 63–73; RESP 15–17; TEMP 36.3; O2SAT 92–99
[2024-12-02] MEDS: MIDAZOLAM 2 MG/2 ML VIAL IV ×2 (11:46→11:52)
[2024-12-02] MEDS: LIDOCAINE 2% INJ MDV 20ML 5 ML INJ (11:50)
[2024-12-02] MEDS: LIDOCAINE 1% 20 ML 5 ML INJ (11:50)
--- NOTE | 2024-12-02 12:07 | PM.PROC.IR.1 ---
Date/Time/Diagnoses Date of procedure: 12/02/24 Time of procedure: 12:07 Pre-procedure diagnosis: 1. FACET ARTHROPATHY Post-procedure diagnosis: same Procedure Notes Procedure: 1. BILATERAL- L4, L5 and S1 DIAGNOSTIC MB BLOCKS with SA Anesthetic Indications: Tyra is referred by Dr. Houston for treatment of Bilateral Axial LBP. Physician: Tomi Niño Total Fluoroscopy time (seconds): 12 Total sedation minutes: 15 Complications: none Procedure in detail & Post-procedure care: DESCRIPTION OF PROCEDURE Fluoroscopically guided, contrast-controlled bilateral L4, L5 and S1 medial branch blocks with 0.5cc of 2% Lidocaine. Following review of allergy and review of potential side effects and complications, including, but not necessarily limited to, infection, allergic reaction, local tissue breakdown, nerve injury, paralysis, stroke and possible , the patient indicated that the patient understood and agreed to proceed. An informed consent document was signed by the patient, witnessed by a nurse, and placed in the patient's chart. After review of previous anaesthesic history and IV conscious sedation the patient was deemed safe to proceed with today's procedure with IV conscious sedation as ASA class II designation. Safety time-out was performed to confirm patient ID, procedure to be performed and site of procedure. IV sedation was accomplished with a combination of 4mg of Versed was administered by the RN after DO order, titrated to patient comfort during the course of the procedure while the patient remained responsive to all verbal commands In the prone position, following sterile prep and drape of the lumbar region, the right L4, L5 and S1 anatomical location of the medial branch of the dorsal ramus was identified fluoroscopically. Subsequently an anesthetic skin wheal using 1% lidocaine solution was initiated at each of the anatomical spots. Subsequently then a 22-gauge 3.5-inch spinal needle was atraumatically introduced and advanced under fluoroscopic guidance at each of the corresponding sites at the right L4, L5 and S1 MB. After negative aspiration, 0.2cc of Isovue 200 was injected, confirming placement without vascular or intrathecal uptake. Subsequently then 0.5cc of 2% Lidocaine solution was injected at each of the corresponding sites at the right L4, L5 and S1 medial branch locations. The identical procedure was replicated on the left. The patient tolerated the procedure well without signs or symptoms of complications prior to transfer to the recovery area continued monitoring without incident. Post-procedure, the patient was monitored initiating provocative activities to measure the amount of relief from block of the facetogenic pain. The patient reported a VAS of 7 prior to the procedure and a post-procedure VAS of 1. It has been a pleasure to assist in the diagnostic and therapeutic care of your patient. POST OP INSTRUCTIONS The patient was provided with a Pain Log to complete over the next several hours and subsequent days prior to the patient's follow up with the ordering physician. If the patient has senior java programmer relief to the solution applied, then they may be a candidate for medial branch rhizotomy. The patient is aware, was provided, once again, with a Pain Log and will follow up with the referring physician for review and clinical correlation
== END 2024-12-02 12:32 | disposition home or self-care (01) ==
PROVIDERS: PCP Family Medicine; Referring Provider Family Medicine; Visit Provider Physical Medicine & Rehabilitation
DX: M47.816 Spondylosis without myelopathy or radiculopathy, lumbar region (principal); M47.817 Spondylosis without myelopathy or radiculopathy, lumbosacral region
CPT/HCPCS: 64493; 64494; 99152; J2250

== ENCOUNTER 2025-04-12 12:14 | Outpatient (CLI) | payer MEDICARE, BC, SELFPAY ==
[2025-04-12] VITALS (11 sets, daily range): BP systolic 106–193; BP diastolic 55–89; PULSE 66–75; RESP 12–17; TEMP 36.5; O2SAT 94–100
[2025-04-12] MEDS: MIDAZOLAM 2 MG/2 ML VIAL IV ×2 (13:39→13:46)
[2025-04-12] MEDS: BETAMETHASONE 30 MG/5 ML MDV 12 MG INJ (13:49)
[2025-04-12] MEDS: LIDOCAINE 1% 20 ML INJ (13:49)
[2025-04-12] MEDS: BETAMETHASONE 30 MG/5 ML MDV 6 MG INJ (13:50)
--- NOTE | 2025-04-12 14:05 | PM.PROC.IR.1 ---
Date/Time/Diagnoses Date of procedure: 04/12/25 Time of procedure: 14:05 Pre-procedure diagnosis: 1. FORAMINAL STENOSIS WITH LE SYMPTOMS Procedure Notes Procedure: 1. FLUOROSCOPICALLY GUIDED CONTRAST CONTROLLED TRANSFORAMINAL EPIDURAL STEROID INJECTION - BILATERAL L4/5 TFESI Indications: Tyra is referred by Dr. Houston for treatment of Foraminal Stenosis with bilateral LE Symptoms Physician: Tomi Niño Total Fluoroscopy time (seconds): 19 Total sedation minutes: 17 Complications: none Procedure in detail & Post-procedure care: FINDINGS Foraminal Nerve Root Compression secondary to disc disease and facet hypertrophy DESCRIPTION OF PROCEDURE Following review of allergy and review of potential side effects and complications, including, but not necessarily limited to, infection, allergic reaction, local tissue breakdown, stroke, temporary or permanent nerve injury, paralysis, and possible , the patient indicated that the patient understood and agreed to proceed. An informed consent document was signed by the patient, witnessed by a nurse, and placed in the patient's chart. Additionally, other treatment options including medications, modalities, and physical therapy were reviewed with the patient. After review of previous anaesthesic history and IV conscious sedation the patient was deemed safe to proceed with today?s procedure with IV conscious sedation as ASA class II designation. Safety time-out was performed to confirm patient ID, procedure to be performed and site of procedure. IV sedation was accomplished with a combination of 4mg of Versed was administered by the RN after DO order, titrated to patient comfort during the course of the procedure while the patient remained responsive to all verbal commands In the prone position following sterile prep and drape of the lumbar region, the right L4/5 posterior neuroforamen was identified fluoroscopically. The skin was anesthetized via a 25-gauge 1.5-inch needle with 1% lidocaine solution. At this point, a 25-gauge 3.5-inch spinal needle was atraumatically introduced and advanced under fluoroscopic guidance through the posterior right L4/5 neuroforamen to approximately the anterior aspect of the canal. Depth was confirmed on lateral view. Following negative aspiration, injection of approximately 1.5cc of Isovue 200 under live fluoroscopy in the AP view confirmed excellent flow along the nerve root, into the epidural space without vascular or intrathecal uptake observed Radiological data, including multiple fluoroscopic views of the lumbosacral spine, reveal a spinal needle at the right L4/5 posterior neuroforamen. Subsequent views show flow of contrast material flowing superiorly and inferiorly along the nerve root confirming epidural flow. Subsequently, a test dose of 1.5cc of 1% lidocaine solution was administered and patient was observed for two minutes for signs or symptoms of complications, including abdominal pain, shortness of breath, bilateral upper or lower extremity weakness, nausea and vomiting, prior to steroid injection. At this point, a total of 2cc or 10mg of dexamethasone and 6mg betamethasone was injected without incident. Attention was then refocused to the left L4/5 level where the identical procedure was replicated. The procedure tolerated the procedure well without signs or symptoms of complications prior to transfer to the recovery area continued monitoring without incident. The patient was then transferred to the recovery area where they were observed for an appropriate time after the injection. The patient reported a VAS score of 7 prior to the procedure and a post-procedure VAS of 0. POST OP INSTRUCTIONS The patient was provided a Pain Log to continue to record their response to the target-specific procedure prior to follow-up visit with their referring physician. Additionally, specific post-injection care instructions and a contact number to our office were provided if concerns arise regarding possible complications associated with the procedure are suspected.
== END 2025-04-12 14:20 | disposition home or self-care (01) ==
PROVIDERS: PCP Family Medicine; Referring Provider Physical Medicine & Rehabilitation; Visit Provider Physical Medicine & Rehabilitation
DX: M48.061 Spinal stenosis, lumbar region without neurogenic claudication (principal); M51.16 Intervertebral disc disorders with radiculopathy, lumbar region; M47.26 Other spondylosis with radiculopathy, lumbar region
CPT/HCPCS: 64483; 99152; J0702; J1100; J2250